=== PATIENT | female | born 1980 | race Two or more races ===

== ENCOUNTER 2021-01-05 12:06 | Outpatient (REF) | payer OTHER, SELFPAY ==
[2021-01-05 13:22] LABS: MANUAL DIFF FLAG NO
[2021-01-05 13:34] LABS: Basophils Absolute Auto 0.1 X10*3/uL (0.0-0.2); Basophils Percent Auto 0.8 % (0-2); Eosinophils Absolute Auto 0.2 X10*3/uL (0.0-0.4); Eosinophils Percent Auto 1.6 % (0-4); Hematocrit 36.9 % (37-47); Hemoglobin 11.3 g/dl (12.0-16.0); Imm Gran Abs Auto 0.06 X10*3/uL (0.00-0.03); Imm Gran Pct Auto 0.5 % (0.0-0.4); Lymphocytes Absolute Auto 3.3 X10*3/uL (1.2-4.9); Lymphocytes Percent Auto 29.2 % (20-40); Mean Corpuscular HGB Conc 30.6 g/dl (31.0-35.0); Mean Corpuscular Volume 75.2 fL (80-98); Mean Platelet Volume 10.6 fL (9.4-12.3); Monocytes Absolute Auto 0.7 X10*3/uL (0.1-1.2); Monocytes Percent Auto 5.8 % (2-11); Neutrophils Absolute Auto 7.1 X10*3/uL (2.0-8.3); Neutrophils Percent Auto 62.1 % (45-73); Platelet Count 334 X10*3/uL (160-400); Red Blood Count 4.91 X10*6/uL (4.20-5.50); Red Cell Distribution Width 17.7 % (11.0-16.0); White Blood Count 11.4 X10*3/uL (4.8-10.8)
[2021-01-05 13:47] LABS: Alanine Aminotransferase 17 U/L (0-31); Albumin Level 4.1 g/dL (3.5-5.0); Alkaline Phosphatase 71 U/L (39-117); Anion Gap 12 (12-20); Aspartate Amino Transferase 12 U/L (5-31); Bilirubin Total 0.4 mg/dL (0.0-1.0); Blood Urea Nitrogen 10 mg/dL (9-16); Calcium 9.3 mg/dL (8.4-10.2); Carbon Dioxide 28 mmol/L (22-29); Chloride 101 mmol/L (96-108); Cholesterol 130 mg/dL; Estimated Glomerular Filt Rate > 60; Glucose Fasting 203 mg/dL (60-99); HDL Cholesterol 30 mg/dL; LDL Cholesterol Calculated 76 mg/dl; Potassium 4.4 mmol/L (3.3-5.1); Sodium 137 mmol/L (135-145); Total Protein 7.2 g/dL (6.5-8.0); Triglycerides 122 mg/dL
[2021-01-05 13:49] LABS: Creatinine Urine 126.59 mg/dL; Microalbum/Creatinine Ratio Ur 44.2 ug/mg cr
[2021-01-05 14:07] LABS: TSH reflex Free T4 0.64 uIU/mL (0.32-4.0)
== END 2021-01-05 12:07 | disposition home or self-care (01) ==
LOC: HO.LAB 12:06
PROVIDERS: PCP Physician Assistant; Visit Provider Physician Assistant
DX: E66.01 Morbid (severe) obesity due to excess calories (principal); Z68.43 Body mass index [BMI] 50.0-59.9, adult; E11.9 Type 2 diabetes mellitus without complications; E78.2 Mixed hyperlipidemia; I10 Essential (primary) hypertension; Z79.4 Long term (current) use of insulin
CPT/HCPCS: 36415; 80053; 80061; 82043; 84443; 85025

== ENCOUNTER → 2021-07-07 12:30 | Outpatient (BNVA) | payer OTHER, SELFPAY | PROVIDERS: PCP Physician Assistant; Visit Provider Dietitian, Registered | DX: E11.65 Type 2 diabetes mellitus with hyperglycemia (principal) | CPT/HCPCS: 97802 ==

== ENCOUNTER → 2021-08-18 12:27 | Outpatient (BNVA) | payer OTHER, SELFPAY | PROVIDERS: PCP Physician Assistant; Visit Provider Dietitian, Registered | DX: E11.65 Type 2 diabetes mellitus with hyperglycemia (principal); Z71.3 Dietary counseling and surveillance | CPT/HCPCS: 97803 ==

== ENCOUNTER 2021-09-23 09:16 | Outpatient (REF) | payer OTHER, SELFPAY ==
[2021-09-23 10:08] LABS: Hemoglobin 10.5 g/dl (12.0-16.0); Mean Corpuscular HGB Conc 30.9 g/dl (31.0-35.0); Mean Corpuscular Hemoglobin 22.4 pg (27.0-33.0); Mean Corpuscular Volume 72.5 fL (80.0-98.0); Mean Platelet Volume 10.7 fL (9.4-12.3); Platelet Count 340 X10*3/uL (160-400); Red Blood Count 4.69 X10*6/uL (4.20-5.50); Red Cell Distribution Width 20.5 % (11.0-16.0); White Blood Count 11.5 X10*3/uL (4.8-10.8)
[2021-09-23 10:36] LABS: Alanine Aminotransferase 13 U/L (0-31); Albumin Level 3.9 g/dL (3.5-5.0); Alkaline Phosphatase 72 U/L (39-117); Anion Gap 12 (12-20); Aspartate Amino Transferase 11 U/L (5-31); Bilirubin Direct 0.2 mg/dL (0.0-0.5); Bilirubin Total 0.5 mg/dL (0.0-1.0); Blood Urea Nitrogen 9 mg/dL (9-16); Calcium 9.3 mg/dL (8.4-10.2); Carbon Dioxide 28 mmol/L (22-29); Chloride 105 mmol/L (96-108); Cholesterol 105 mg/dL; Estimated Glomerular Filt Rate > 60; Glucose Fasting 152 mg/dL (60-99); HDL Cholesterol 27 mg/dL; LDL Cholesterol Calculated 62 mg/dl; Lipase 41 U/L (8-78); Potassium 4.3 mmol/L (3.3-5.1); Sodium 141 mmol/L (135-145); Total Protein 6.8 g/dL (6.5-8.0); Triglycerides 83 mg/dL
[2021-09-23 11:38] LABS: Estimated Average Glucose 209 mg/dL; Hemoglobin A1c % 8.9 %
== END 2021-09-23 09:17 | disposition home or self-care (01) ==
LOC: HO.LAB 09:16
PROVIDERS: PCP Physician Assistant; Visit Provider Physician Assistant
DX: R10.13 Epigastric pain (principal); E78.2 Mixed hyperlipidemia; K58.9 Irritable bowel syndrome, unspecified; E11.9 Type 2 diabetes mellitus without complications; Z79.4 Long term (current) use of insulin
CPT/HCPCS: 36415; 80053; 80061; 80076; 81382; 82248; 83036; 83690; 84443; 85027

== ENCOUNTER → 2021-10-19 12:31 | Outpatient (BNVA) | payer OTHER, SELFPAY | PROVIDERS: PCP Physician Assistant; Visit Provider Dietitian, Registered | DX: E11.65 Type 2 diabetes mellitus with hyperglycemia (principal); Z71.3 Dietary counseling and surveillance | CPT/HCPCS: 97803 ==

== ENCOUNTER 2022-01-27 08:45 | Outpatient (REF) | payer OTHER, SELFPAY ==
[2022-01-27 09:22] LABS: Hematocrit 34.9 % (37.0-47.0); Hemoglobin 10.8 g/dl (12.0-16.0); Mean Corpuscular HGB Conc 30.9 g/dl (31.0-35.0); Mean Corpuscular Hemoglobin 22.7 pg (27.0-33.0); Mean Corpuscular Volume 73.3 fL (80.0-98.0); Mean Platelet Volume 10.2 fL (9.4-12.3); Platelet Count 371 X10*3/uL (160-400); Red Blood Count 4.76 X10*6/uL (4.20-5.50); Red Cell Distribution Width 19.1 % (11.0-16.0); White Blood Count 10.5 X10*3/uL (4.8-10.8)
[2022-01-27 09:47] LABS: Iron 25 mcg/dL (30-160); Percent Iron Saturation 6 % (15-50); Total Iron Binding Capacity 438 mcg/dL (228-428); Unsaturated Iron Binding 413 ug/dL
== END 2022-01-27 08:46 | disposition home or self-care (01) ==
LOC: HO.LAB 08:45
PROVIDERS: PCP Physician Assistant; Visit Provider Physician Assistant
DX: D50.9 Iron deficiency anemia, unspecified (principal)
CPT/HCPCS: 36415; 83540; 85027

== ENCOUNTER 2022-04-14 13:44 | Outpatient (REF) | payer OTHER, SELFPAY ==
--- NOTE | ~2022-04-14 | MM_ITS ---
EXAMINATION: MM SCREENING DIGITAL BREAST TOMOSYNTHESIS, BILATERAL CLINICAL INFORMATION: Screening. Asymptomatic. No prior breast imaging. Age 42. The lifetime risk of breast cancer based on the Tyrer-Cuzick Model is 10%. COMPARISON: Mammography: 11 TECHNIQUE: Digital breast tomosynthesis is performed in both the craniocaudal and mediolateral oblique views along with computer-aided detection (CAD). Synthesized 2D images are generated from the tomosynthesis. FINDINGS: There are scattered areas of fibroglandular density (ACR BI-RADS breast composition Category b). There is no significant mass or architectural abnormality. The left breast has loosely grouped calcifications anterior lower inner quadrant. As this represents initial baseline study, additional magnification views will be requested to fully characterize. There are other few incidental scattered calcifications in the breasts which are unremarkable. The skin contours are smooth. The axilla are unremarkable. MM/MM tomosynthesis screening BI IMPRESSION: Left: -Loosely grouped calcifications anterior medial breast on baseline exam. Right: -No mammographic evidence of malignancy. ASSESSMENT: BI-RADS 0: Incomplete - Need Additional Imaging Evaluation RECOMMENDATION: 1. Additional views of the left breast (magnification CC, magnification LM). 2. Radiology department staff will contact the patient for additional imaging. This patient's information was entered into a reminder system with a target due date for their next mammogram.
== END 2022-04-14 13:45 | disposition home or self-care (01) ==
LOC: HO.MAMMO 13:44
PROVIDERS: PCP Physician Assistant; Visit Provider Physician Assistant
DX: Z12.31 Encounter for screening mammogram for malignant neoplasm of breast (principal)
CPT/HCPCS: 77063; 77067

== ENCOUNTER 2022-05-11 10:52 | Outpatient (REF) | payer OTHER, SELFPAY ==
--- NOTE | ~2022-05-11 | MM_ITS ---
EXAMINATION: MM DIAGNOSTIC DIGITAL MAMMOGRAPHY, LEFT CLINICAL INFORMATION: Recall from baseline screening for loosely grouped calcifications anterior lower inner left breast. COMPARISON: Mammography: 04/14/2022 TECHNIQUE: Digital mammography is performed in the following views: Magnification CC, magnification LM. FINDINGS: There are scattered areas of fibroglandular density (ACR BI-RADS breast composition Category b). The additional views confirm numerous loosely grouped calcifications in the anterior 9:00 position. The calcifications vary in size and in attenuation. Stereotactic sampling is recommended. Results and recommendation are discussed with the patient at time of visit. MM/MM added views LT IMPRESSION: -Multiple loosely grouped heterogeneous calcifications anterior 9:00 left breast. ASSESSMENT: BI-RADS 4: Suspicious RECOMMENDATION: Stereotactic sampling left breast calcifications. This patient's information was entered into a reminder system with a target due date for their next mammogram.
== END 2022-05-11 10:53 | disposition home or self-care (01) ==
LOC: HO.MAMMO 10:52
PROVIDERS: PCP Physician Assistant; Visit Provider Physician Assistant
DX: R92.1 Mammographic calcification found on diagnostic imaging of breast (principal)
CPT/HCPCS: 77065

== ENCOUNTER → 2022-05-12 08:24 | Outpatient (BNVA) | payer OTHER, SELFPAY | PROVIDERS: PCP Physician Assistant; Visit Provider Surgery | DX: R92.1 Mammographic calcification found on diagnostic imaging of breast (principal) | CPT/HCPCS: 99202 ==

== ENCOUNTER 2022-05-13 07:51 | Outpatient (REF) | payer OTHER, SELFPAY ==
--- NOTE | ~2022-05-13 | MM_ITS ---
EXAMINATION: STEREOTACTIC TOMOSYNTHESIS-GUIDED VACUUM-ASSISTED BREAST BIOPSY, LEFT SPECIMEN RADIOGRAPH, LEFT POST PROCEDURE DIGITAL MAMMOGRAM, LEFT CLINICAL INFORMATION: Loosely grouped heterogeneous calcifications anterior left breast initially noted at baseline. TC score 10%. COMPARISON: Mammography 04/14/2022, 05/11/2022. TECHNIQUE/PROCEDURE: Informed consent was obtained from the patient after discussion of the benefits, risks, and alternatives to biopsy today. Patient appeared to understand. Gave opportunity for questions. Patient signed consent form. BIOPSY TABLE: [employer] Affirm Prone Biopsy System. LESION: Loosely grouped heterogeneous calcifications anterior medial left breast.. LOCAL ANESTHESIA: 10 mL carbonated 1% lidocaine; 10 mL 1% lidocaine with epinephrine. DERMATOTOMY: Single skin edwin dermatotomy performed. NEEDLE: [employer] 9-gauge vacuum assisted core biopsy device. APPROACH: Medial lateral. TARGETING: Combination of digital breast tomosynthesis and stereotactic digital mammography used for targeting. CORES: 8. CLIP: [employer] T-shaped marker. SPECIMEN RADIOGRAPH: Specimen radiograph is taken in separate room using digital mammography. The index calcifications are in the excised cores. There are over 12 calcifications in the cores. POST PROCEDURE UNILATERAL DIGITAL MAMMOGRAM: The post biopsy mammogram is performed in separate room using separate digital mammography equipment from the biopsy procedure. CC and LM views are obtained. There are scattered areas of fibroglandular density (breast composition category: b). The clip marker is in position. The calcifications are markedly decreased at the biopsy site. No gross hematoma. The patient tolerated the procedure well. No immediate complications. Home instructions reviewed with the patient. Final pathology results are pending. MM/MM stereotactic biopsy LT IMPRESSION: 1. Digital tomosynthesis-guided core biopsy left breast with clip placement. 2. Specimen radiograph taken and post procedure mammogram. There is satisfactory positioning of the biopsy clip. 3. Final pathology results pending. An addendum report will be issued.
[2022-05-13] MEDS: Lidocaine HCl 1 % 20 ML VIAL 10 ML SUBCUT (09:32)
[2022-05-13] MEDS: Sodium Bicarbonate 8.4% 50 MEQ/50 ML VIAL SUBCUT (09:33)
== END 2022-05-13 07:52 | disposition home or self-care (01) ==
LOC: HO.MAMMO 07:51
PROVIDERS: PCP Physician Assistant; Visit Provider Surgery
DX: R92.1 Mammographic calcification found on diagnostic imaging of breast (principal)
CPT/HCPCS: 19081; 88305; A4648

== ENCOUNTER → 2022-05-18 14:30 | Outpatient (BNVA) | payer OTHER, SELFPAY | PROVIDERS: PCP Physician Assistant; Visit Provider Surgery | DX: R92.1 Mammographic calcification found on diagnostic imaging of breast (principal) | CPT/HCPCS: 99212 ==

== ENCOUNTER → 2023-02-13 14:54 | Outpatient (BNVA) | payer OTHER, SELFPAY | PROVIDERS: PCP Physician Assistant; Visit Provider Nurse Practitioner Family | DX: R10.9 Unspecified abdominal pain (principal); R14.0 Abdominal distension (gaseous); G89.29 Other chronic pain; E11.40 Type 2 diabetes mellitus with diabetic neuropathy, unspecified; Z79.4 Long term (current) use of insulin | CPT/HCPCS: 99202 ==

== ENCOUNTER 2023-02-19 11:12 | Emergency (ER) | payer OTHER, SELFPAY ==
--- NOTE | ~2023-02-19 | XR_ITS ---
EXAMINATION: XR CHEST CLINICAL INFORMATION: Reason for Exam cp, sob COMPARISON: Chest radiograph 08/27/2018 TECHNIQUE: One view of the chest FINDINGS: Lines and tubes: EKG leads overlie the patient. Clear lungs. No pleural effusion. No pneumothorax. Unchanged cardiomediastinal silhouette. XR/XR chest 1V IMPRESSION: * Clear lungs.
--- NOTE | 2023-02-19 11:14 | ECG_ITS ---
Test Reason : CHEST PAIN Blood Pressure : / mmHG Vent. Rate : 111 BPM Atrial Rate : 111 BPM P-R Int : 140 ms QRS Dur : 100 ms QT Int : 350 ms P-R-T Axes : 038 -24 021 degrees QTc Int : 476 ms Sinus tachycardia Minimal voltage criteria for LVH, may be normal variant ( Rolan product ) Borderline ECG No previous ECGs available Referred By: Elvia Tristan Electronically Signed By:DESI ESPOSITO
--- NOTE | 2023-02-19 11:17 | ED_ITS ---
HPI - General Adult General Chief complaint: Abdominal Pain Stated complaint: abd pain, chest pain, SOB Time Seen by Provider: 02/19/23 11:30 Source: patient Mode of arrival: ambulatory Limitations: no limitations History of Present Illness HPI narrative: Patient is a 42-year-old female with history of obesity, GERD, IBS, DM, HTN, HLD, cholecystectomy, and chronic abdominal pain presenting to the emergency department with diffuse abdominal pain, nausea, and vomiting. She has had extensive workup for same symptoms including CT abdomen, barium swallow, colonoscopy, EGD, nuclear testing, and labs without an explanation for her symptoms. States current symptoms feel the same as her chronic pain. She recently saw pain management on 02/13/23 and was instructed to contact GI for additional evaluation. States she played phone tag with GI and does not have an appointment set up yet. She denies any drug or alcohol use. Reports only prior abdominal surgery was cholecystectomy. Pain management also recommended allergy testing to rule out dietary cause for symptoms. Denies diarrhea or constipation, last BM 3 days ago. States has been unable to tolerate PO since Monday. Denies dysuria, hematuria, or other urinary symptoms. Denies fevers. Denies chest pain or dyspnea. Denies radiation of abdominal pain. MD complaint: abdominal pain, nausea, vomiting Onset (ago): day(s) Location: abdomen Radiation: non-radiation Severity: severe Quality: burning Pain Consistency: constant Relieving factors: none Exacerbating factors: eating Associated symptoms: nausea/vomiting Treatments prior to arrival: none Related Data Home Medications Medication Instructions Recorded Confirmed magnesium oxide 400 mg (241.3 mg 400 mg PO DAILY 05/12/22 01/12/23 magnesium) tablet Previous Rx's Medication Instructions Recorded blood pressure monitor (Blood #1 ea 08/04/20 Pressure Kit) safety needles 25 gauge x 1 (BD #100 ea 06/22/21 Eclipse) insulin lispro 100 unit/mL 16 unit (0.16 mL) subcut TID 30 03/29/22 subcutaneous pen (Humalog #15 mL (U-100) Insulin) Lactobacil rhamnosus GG 10 billion 1 cap PO DAILY 90 days #90 caps 04/25/22 cell-inulin 200 mg sprinkle capsule ([facility]) lancets 28 gauge (FreeStyle #100 ea 07/05/22 Lancets) pen needle, diabetic 32 gauge x #100 ea 07/05/2232 (BD Lis 2nd Gen Pen Needle) atorvastatin 40 mg tablet 40 mg PO DAILY 90 days #90 tabs 09/16/22 losartan 50 mg tablet 50 mg PO DAILY 90 days #90 tabs 09/16/22 omeprazole 40 mg capsule,delayed 40 mg PO DAILY 90 days #90 caps 09/16/22 release insulin glargine 100 unit/mL (3 30 unit (0.3 mL) subcut DAILY 30 12/24/22 mL) subcutaneous pen (Lantus days #15 mL Solostar U-100 Insulin) dicyclomine 20 mg tablet 20 mg PO TID 30 days #90 tabs 01/11/23 ferrous sulfate 325 mg (65 mg 325 mg PO DAILY 30 days #30 tabs 01/17/23 iron) tablet alcohol swabs (Alcohol Prep Pads) 1 pad topical TID 90 days #200 ea 02/07/23 blood sugar diagnostic (FreeStyle #100 strips 02/13/23 Lite Strips) tramadol 50 mg tablet 50 mg PO Q8H PRN pain 7 days #21 02/13/23 tabs promethazine 25 mg rectal 25 mg MD Q6H PRN nausea and 02/19/23 suppository vomiting #12 ea Allergies Allergy/AdvReac Type Severity Reaction Status Date / Time ibuprofen [IBUPROFEN] Allergy Unknown SWELLING, Verified 02/19/23 11:39 face swelling seafood Allergy Unknown Anaphylaxis Verified 02/19/23 11:39 dulaglutide [From Trulicity] AdvReac Intermediate GI upset Verified 02/19/23 11:39 Review of Systems Review of Systems: As per HPI. Yes all other systems are reviewed and are negative Constitutional: Constitutional: Reports as per HPI [facility] Past Medical History Medical History Breast calcification, left Diabetes mellitus Hyperlipidemia Hypertension Morbid obesity Surgical History History of cholecystectomy Family History Family History Father Mental health disorder Mother Drug abuse Emphysema lung COPD (chronic obstructive pulmonary disease) Heart disease Mental health disorder Substance use disorder Sister Thyroid cancer Social History Social History Housing: Apartment Alcohol intake: never Patient Tobacco Use Status: Never used Tobacco Smoked in Last 30 Days: No e-Cigarette/Vaping Use: Never Used Second Hand Smoke Exposure: No Use of substances other than those prescribed or required for medical reasons: No Advance Directives: No Advance Directives Information Provided: Yes service: No Current occupational status: employed Current occupation: [employer]OLOG[employer] Current occupational exposures/hazards: No Cognitive needs: No Hearing needs: No Vision needs: Yes Physical Exam ED Vital Signs: Vital Signs - 24 hr 02/19/23 11:30 02/19/23 11:40 02/19/23 14:00 Temperature 98.4 F 98.7 F 100.3 F Pulse Rate 109 H 71 Respiratory Rate 24 H 24 H 37 H Blood Pressure 158/105 H 158/105 H 170/84 H Pulse Oximetry 98 97 97 Oxygen Delivery Method Room Air Room Air Nasal Cannula Oxygen Flow Rate 2 02/19/23 14:49 02/19/23 15:23 Temperature 99.6 F 99.3 F Pulse Rate 94 Respiratory Rate 37 H Blood Pressure 199/107 H Pulse Oximetry 98 Oxygen Delivery Method Room Air Oxygen Flow Rate BMI result Body Mass Index 47.6 Vital signs have been reviewed and appear to be correct. Blood pressure elevated. Heart rate slightly elevated. Respiratory rate slightly elevated. Temperature normal. Oxygen saturation normal. Const General: cooperative, healthy appearing and no acute distress Nutritional Appearance: obese Orientation/consciousness: oriented to person, oriented to place, oriented to time and patient oriented x3 Limitations: no limitations HENMT Head: Yes normocephalic and Yes atraumatic Ears: external ears normal General nose exam: Normal external nose present Face and sinus: Yes face symmetric Mouth: oropharynx normal and moist mucous membranes Throat: Yes uvula midline Eyes Pupils: Equal, round and reactive pupils present Neck Neck: Yes normal visual inspection and Yes supple Resp Effort & Inspection: normal respiratory effort and able to speak in complete sentences Auscultation: clear to auscultation bilaterally Cardio Rate: regular rate Rhythm: regular rhythm Heart sounds: S1 normal heart sound present and S2 normal heart sound present GI Inspection: Yes normal to inspection Palpation (GI): Soft to palpation and nontender Auscultation: normoactive bowel sounds General: Yes no CVA tenderness Back/Spine/Pelvis Back: no CVA tenderness Skin General skin exam: elasticity normal and turgor normal Neuro General: oriented to person, oriented to place, oriented to time, patient oriented x3, moves all extremities, no focal motor deficits and CN's II-XI in tact bilaterally Cranial nerves: Yes Equal, round and reactive pupils present Cognition (Neuro): normal cognition Extrem General: Yes full ROM, Yes no pedal edema and Yes no calf tenderness Psych Mental Status: mental status grossly normal Affect: normal affect Thought process: Normal thought process present Course Course Course Narrative: 13:55 Notified by nursing that patient's room air oxygen saturation dropped to 90%, stating patient was hyperventilating related to pain. She is not currently tachycardic. Still do not suspect sepsis. Patient re-evaluated, placed on O2 @ 2lpm via NC for O2 sats of 89-90% on room air, likely secondary to drowsiness reports decreased nausea but continues to complain of epigastric pain. Troponin negative. Will avoid opioid analgesia as patient already drowsy and having difficulty maintaining oxygenation. Ordered famotidine and maalox/lidocaine. 15:22 Patient reports pain is down to 6/10. Noted to be hypertensive. States did not take her Losartan this am r/t vomiting. Will order her home dose now that nausea is controlled. Also ordered bentyl. Review of records from [facility] notes from ED visit yesterday shows leukocytosis on prior presentations, most recent abdominal CT there was 09/09/22. Patient does not have elevation of LFTs, alk phos, or lipase so biliary or pancreatic etiology unlikely. UA shows 1+ leukocytes, 21-50 WBCs, and 4+ bacteria but also has 11-20 epithelials, so likely contaminated. Discussed results of urine drug screen with patient who now admits that she occasionally uses cannabis, but denies daily use. 16:14 Patient tolerating PO. Requesting Ativan for abdominal pain stating this typically works well for her. Patient will be picked up from ED and is not driving, so will order PO Ativan. Feel patient is stable for discharge home, will prescribe rectal promethazine for patient to utilize when she has nausea and vomiting and is unable to tolerate PO. Stressed the importance of contacting GI for further evaluation and encourage patient to continue calling their office for an appointment. All results discussed and all questions answered, return precautions discussed at bedside. Patient verbalized understanding of and agreement with plan. Medications Administered Discontinued Medications Generic Name Dose Route Start Last Admin Trade Name Freq PRN Reason Stop Dose Admin Al Hydroxide/Mg Hydroxide 30 ml 02/19/23 13:54 02/19/23 14:40 Magnesium Hydrox/Alum Hydrox 30 Ml Oral.Susp PO 02/19/23 13:55 30 ml ONCE ONE Administration Dicyclomine HCl 10 mg 02/19/23 15:24 02/19/23 15:44 Dicyclomine Hcl 10 Mg Capsule PO 02/19/23 15:25 10 mg ONCE ONE Administration Diphenhydramine HCl 25 mg 02/19/23 12:49 02/19/23 13:16 Diphenhydramine Hcl 50 Mg/Ml Vial IVPUSH 02/19/23 12:50 25 mg ONCE ONE Administration Famotidine 20 mg 02/19/23 13:54 02/19/23 14:55 Famotidine/Pf 20 Mg/2 Ml Vial IVPUSH 02/19/23 13:55 20 mg ONCE ONE Administration Haloperidol Lactate 5 mg 02/19/23 12:10 02/19/23 13:21 Haloperidol Lactate 5 Mg/Ml Vial IM 02/19/23 12:11 5 mg ONCE ONE Administration Sodium Chloride 1,000 mls @ 999 mls/hr 02/19/23 12:15 02/19/23 15:28 Ns IV 02/19/23 13:15 Infused .Q1H1M RODNEY Infusion Lidocaine HCl 5 ml 02/19/23 13:54 02/19/23 14:40 Lidocaine Hcl Viscous 2 % 15 Ml Solution MUCOUS MEM 02/19/23 13:55 5 ml ONCE ONE Administration Losartan Potassium 50 mg 02/19/23 15:22 02/19/23 15:44 Losartan Potassium 50 Mg Tablet PO 02/19/23 15:23 50 mg ONCE ONE Administration Protocol Metoclopramide HCl 10 mg 02/19/23 12:49 02/19/23 13:16 Metoclopramide Hcl 10 Mg/2 Ml Vial IVPUSH 02/19/23 12:50 10 mg ONCE ONE Administration Potassium Chloride 20 meq 02/19/23 15:34 02/19/23 15:45 Potassium Chloride Er 20 Meq Tab.Er.Prt PO 02/19/23 15:35 20 meq ONCE ONE Administration Medical Decision Making Medical Decision Making MDM Narrative: Patient is a 42-year-old female with history of obesity, GERD, IBS, DM, HTN, HLD, cholecystectomy, and chronic abdominal pain presenting to the emergency department with diffuse abdominal pain, nausea, and vomiting. On exam patient is awake, A+Ox3, BP elevated, mildly tachycardic likely secondary to pain, afebrile, LS CTA, abdomen is soft and nontender to palpation, no CVA tenderness. EKG shows sinus tachycardia, no evidence of STEMI. Differential includes ACS, GERD, PUD, exacerbation of chronic abdominal pain, cyclic vomiting syndrome. Less likely pancreatitis, choledocolithiasis. Unlikely pneumonia. Do not suspect sepsis. Patient typically goes to [facility] ED, will attempt to obtain recent records from there. Plan: labs, UA, pain/nausea management, IV fluids, reassess Please refer to course for remaining clinical decision making. Differential Diagnosis Differential Diagnoses: The differential diagnosis associated with the presentation includes As above. Lab Data MDM Lab Attestation statement: I reviewed the patient's lab results. 02/19/23 12:40 02/19/23 12:40 Labs: Lab Results 02/19/23 02/19/23 02/19/23 Range/Units 12:40 12:40 12:40 WBC 15.6 H (4.8-10.8) X10*3/uL RBC 5.38 (4.20-5.50) X10*6/uL Hgb 13.7 D (12.0-16.0) g/dl Hct 40.9 (37.0-47.0) % MCV 76.0 L (80.0-98.0) fL MCH 25.5 L (27.0-33.0) pg MCHC 33.5 (31.0-35.0) g/dl RDW 17.2 H (11.0-16.0) % Plt Count 352 (160-400) X10*3/uL MPV 10.4 (9.4-12.3) fL Immature Gran % (Auto) 0.7 H (0.0-0.4) % Neut % (Auto) 71.7 (45-73) % Lymph % (Auto) 18.4 L (20-40) % [place] % (Auto) 8.6 (2-11) % Eos % (Auto) 0.1 (0-4) % Baso % (Auto) 0.5 (0-2) % Lymph # (Auto) 2.9 (1.2-4.9) X10*3/uL Child[place] # (Auto) 1.3 H (0.1-1.2) X10*3/uL Eos # (Auto) 0.0 (0.0-0.4) X10*3/uL Baso # (Auto) 0.1 (0.0-0.2) X10*3/uL Abs Immat Gran (auto) 0.11 H (0.00-0.03) X10*3/uL Absolute Neuts (auto) 11.2 H (2.0-8.3) x10*3/uL Absolute Nucleated RBC 0.000 (0.0-0.012) X10*3/uL Nucleated RBC % (auto) 0.0 (0.0-0.2) /100WBC Sodium 140 (135-145) mmol/L Potassium 3.2 L D (3.3-5.1) mmol/L Chloride 104 (96-108) mmol/L Carbon Dioxide 19 L (22-29) mmol/L Anion Gap 20 (12-20) BUN 16 (9-16) mg/dL Creatinine 0.87 (0.5-1.4) mg/dL Estim Creat Clear Calc 100.9 Estimated GFR > 60 Random Glucose 166 H (60-115) mg/dL Calcium 10.6 H D (8.4-10.2) mg/dL Magnesium 2.0 (1.6-2.6) mg/dL Total Bilirubin 1.3 H (0.0-1.0) mg/dL AST 18 (5-31) U/L ALT 23 (0-31) U/L Alkaline Phosphatase 73 (39-117) U/L Troponin I High Sens < 2.7 (<3.5-17.0) ng/L Total Protein 8.5 H (6.5-8.0) g/dL Albumin 4.8 (3.5-5.0) g/dL Lipase (8-78) U/L Urine Color Urine Appearance Urine pH (5.0-9.0) Ur Specific [place] (1.005-1.025) Urine Protein (Neg-Trace) mg/dL Urine Glucose (UA) (Negative) mg/dL Urine Ketones (Negative) mg/dL Urine Blood (Negative) Urine Nitrite (Negative) Ur Leukocyte Esterase (Negative) Urine RBC (0-2) /HPF Urine WBC (0-5) /HPF Ur Squamous Epith Cells (0-2) /HPF Calcium Oxalate Crystal Urine Bacteria (None Seen) Hyaline Casts (0-2) /LPF Urine Opiates Screen (Not Detect) Urine Fentanyl Screen (Not Detect) Ur Barbiturates Screen (Not Detect) Ur Phencyclidine Scrn (Not Detect) Ur Amphetamines Screen (Not Detect) U Benzodiazepines Scrn (Not Detect) Urine Cocaine Screen (Not Detect) U Marijuana (THC) Screen (Not Detect) COVID-19 (TRENA) (Negative) COVID-19 Clin Com 02/19/23 02/19/23 02/19/23 Range/Units 12:40 12:40 13:12 WBC (4.8-10.8) X10*3/uL RBC (4.20-5.50) X10*6/uL Hgb (12.0-16.0) g/dl Hct (37.0-47.0) % MCV (80.0-98.0) fL MCH (27.0-33.0) pg MCHC (31.0-35.0) g/dl RDW (11.0-16.0) % Plt Count (160-400) X10*3/uL MPV (9.4-12.3) fL Immature Gran % (Auto) (0.0-0.4) % Neut % (Auto) (45-73) % Lymph % (Auto) (20-40) % Childress % (Auto) (2-11) % Eos % (Auto) (0-4) % Baso % (Auto) (0-2) % Lymph # (Auto) (1.2-4.9) X10*3/uL [place] # (Auto) (0.1-1.2) X10*3/uL Eos # (Auto) (0.0-0.4) X10*3/uL Baso # (Auto) (0.0-0.2) X10*3/uL Abs Immat Gran (auto) (0.00-0.03) X10*3/uL Absolute Neuts (auto) (2.0-8.3) x10*3/uL Absolute Nucleated RBC (0.0-0.012) X10*3/uL Nucleated RBC % (auto) (0.0-0.2) /100WBC Sodium (135-145) mmol/L Potassium (3.3-5.1) mmol/L Chloride (96-108) mmol/L Carbon Dioxide (22-29) mmol/L Anion Gap (12-20) BUN (9-16) mg/dL Creatinine (0.5-1.4) mg/dL Estim Creat Clear Calc Estimated GFR Random Glucose (60-115) mg/dL Calcium (8.4-10.2) mg/dL Magnesium (1.6-2.6) mg/dL Total Bilirubin (0.0-1.0) mg/dL AST (5-31) U/L ALT (0-31) U/L Alkaline Phosphatase (39-117) U/L Troponin I High Sens (<3.5-17.0) ng/L Total Protein (6.5-8.0) g/dL Albumin (3.5-5.0) g/dL Lipase 20 (8-78) U/L Urine Color Dark Yellow Urine Appearance Cloudy Urine pH 6.0 (5.0-9.0) Ur Specific [place] >= 1.030 H (1.005-1.025) Urine Protein 300 (3+) H (Neg-Trace) mg/dL Urine Glucose (UA) Negative (Negative) mg/dL Urine Ketones 80 (Negative) mg/dL Urine Blood Negative (Negative) Urine Nitrite Negative (Negative) Ur Leukocyte Esterase Small (1+) H (Negative) Urine RBC 0-2 (0-2) /HPF Urine WBC 21-50 H (0-5) /HPF Ur Squamous Epith Cells 11-20 (0-2) /HPF Calcium Oxalate Crystal Present Urine Bacteria 4+ (None Seen) Hyaline Casts 3-5 (0-2) /LPF Urine Opiates Screen (Not Detect) Urine Fentanyl Screen (Not Detect) Ur Barbiturates Screen (Not Detect) Ur Phencyclidine Scrn (Not Detect) Ur Amphetamines Screen (Not Detect) U Benzodiazepines Scrn (Not Detect) Urine Cocaine Screen (Not Detect) U Marijuana (THC) Screen (Not Detect) COVID-19 (TRENA) Negative (Negative) COVID-19 Clin Com See Note 02/19/23 Range/Units 13:12 WBC (4.8-10.8) X10*3/uL RBC (4.20-5.50) X10*6/uL Hgb (12.0-16.0) g/dl Hct (37.0-47.0) % MCV (80.0-98.0) fL MCH (27.0-33.0) pg MCHC (31.0-35.0) g/dl RDW (11.0-16.0) % Plt Count (160-400) X10*3/uL MPV (9.4-12.3) fL Immature Gran % (Auto) (0.0-0.4) % Neut % (Auto) (45-73) % Lymph % (Auto) (20-40) % Childress % (Auto) (2-11) % Eos % (Auto) (0-4) % Baso % (Auto) (0-2) % Lymph # (Auto) (1.2-4.9) X10*3/uL [place] # (Auto) (0.1-1.2) X10*3/uL Eos # (Auto) (0.0-0.4) X10*3/uL Baso # (Auto) (0.0-0.2) X10*3/uL Abs Immat Gran (auto) (0.00-0.03) X10*3/uL Absolute Neuts (auto) (2.0-8.3) x10*3/uL Absolute Nucleated RBC (0.0-0.012) X10*3/uL Nucleated RBC % (auto) (0.0-0.2) /100WBC Sodium (135-145) mmol/L Potassium (3.3-5.1) mmol/L Chloride (96-108) mmol/L Carbon Dioxide (22-29) mmol/L Anion Gap (12-20) BUN (9-16) mg/dL Creatinine (0.5-1.4) mg/dL Estim Creat Clear Calc Estimated GFR Random Glucose (60-115) mg/dL Calcium (8.4-10.2) mg/dL Magnesium (1.6-2.6) mg/dL Total Bilirubin (0.0-1.0) mg/dL AST (5-31) U/L ALT (0-31) U/L Alkaline Phosphatase (39-117) U/L Troponin I High Sens (<3.5-17.0) ng/L Total Protein (6.5-8.0) g/dL Albumin (3.5-5.0) g/dL Lipase (8-78) U/L Urine Color Urine Appearance Urine pH (5.0-9.0) Ur Specific [place] (1.005-1.025) Urine Protein (Neg-Trace) mg/dL Urine Glucose (UA) (Negative) mg/dL Urine Ketones (Negative) mg/dL Urine Blood (Negative) Urine Nitrite (Negative) Ur Leukocyte Esterase (Negative) Urine RBC (0-2) /HPF Urine WBC (0-5) /HPF Ur Squamous Epith Cells (0-2) /HPF Calcium Oxalate Crystal Urine Bacteria (None Seen) Hyaline Casts (0-2) /LPF Urine Opiates Screen POSITIVE H (Not Detect) Urine Fentanyl Screen Not Detected (Not Detect) Ur Barbiturates Screen Not Detected (Not Detect) Ur Phencyclidine Scrn Not Detected (Not Detect) Ur Amphetamines Screen Not Detected (Not Detect) U Benzodiazepines Scrn Not Detected (Not Detect) Urine Cocaine Screen Not Detected (Not Detect) U Marijuana (THC) Screen POSITIVE H (Not Detect) COVID-19 (TRENA) (Negative) COVID-19 Clin Com Independent Interpretation I performed an independent interpretation of an: EKG Interpretation: EKG: sinus tachycardia, rate 111 bpm, normal MD interval, no evidence of STEMI External Record Review External record reviewed: Inpatient record, Office record, Outpatient record and Outside ED record ([facility]) Tests considered The following testing was considered but not selected: Considered abdominal CT, however patient has had extensive GI workup, and does not have abdominal tenderness to palpation on exam Prescription Management I considered prescription management with: Pain Medication and Other (antiemetic) Chronic Conditions Patient?s care impacted by: Diabetes and Hypertension Discharge Plan Discharge Clinical Impression: Nausea & vomiting Patient Disposition: Still a Patient Instructions: Acute Nausea and Vomiting (ED) Additional Instructions: You have been evaluated in the emergency department today for abdominal pain, nausea, and vomiting. Your evaluation did not show evidence of medical conditions requiring emergent intervention at this time. You are being prescribed a medication called promethazine which you can use rectally when you are experiencing nausea and vomiting. Please schedule an appointment with your primary care physician and also continue to contact the paint stockman to set up an appointment for further evaluation. Return to the emergency department if you experience worsening or uncontrolled pain, fevers 100.4? F or greater, recurrent vomiting, inability to tolerate food or fluids by mouth, bloody stools or vomit, black or tarry stools, or any other concerning symptoms. Prescriptions: New promethazine 25 mg suppository 25 mg MD Q6H PRN (Reason: nausea and vomiting) Qty: 12 0RF No Action insulin lispro [Humalog KwikPen Insulin] 100 unit/mL insulin pen 16 unit subcut TID 30 Days Qty: 15 1RF Rx Instructions: per sliding scale ( 16 units max ) [facility] 10 billion cell -200 mg capsule, sprinkle 1 cap PO DAILY 90 Days Qty: 90 2RF (DME) lancets [FreeStyle Lancets] 28 gauge misc See Rx Instructions .ROUTE .MEDSUPPLY Qty: 100 3RF Rx Instructions: As directed (DME) pen needle, diabetic [BD Lis 2nd Gen Pen Needle] 32 gauge x 5/32 needle See Rx Instructions .ROUTE .MEDSUPPLY Qty: 100 3RF Rx Instructions: As directed omeprazole 40 mg capsule,delayed release(DR/EC) 40 mg PO DAILY 90 Days Qty: 90 1RF losartan 50 mg tablet 50 mg PO DAILY 90 Days Qty: 90 1RF atorvastatin 40 mg tablet 40 mg PO DAILY 90 Days Qty: 90 1RF insulin glargine [Lantus Solostar U-100 Insulin] 100 unit/mL (3 mL) insulin pen 30 unit subcut DAILY 30 Days Qty: 15 2RF ferrous sulfate 325 mg (65 mg iron) tablet 325 mg PO DAILY 30 Days Qty: 30 6RF alcohol swabs [Alcohol Prep Pads] Pads, Medicated 1 pad topical TID 90 Days Qty: 200 5RF tramadol 50 mg tablet 50 mg PO Q8H PRN (Reason: pain) 7 Days Qty: 21 0RF (DME) FreeStyle Lite Strips Strip See Rx Instructions .ROUTE .COMPLEX Qty: 100 3RF Dose Instruction: USE 1 STRIP DIRECTED 3 TIMES A DAY FOR 30 DAYS TESTING TWICE PER DAY Rx Instructions: USE 1 STRIP DIRECTED 3 TIMES A DAY FOR 30 DAYS TESTING TWICE PER DAY (DME) blood pressure monitor [Blood Pressure Kit] Kit See Rx Instructions .ROUTE .MEDSUPPLY Qty: 1 0RF Rx Instructions: As directed (DME) BD Eclipse 25 gauge x 1 needle See Rx Instructions .Route Qty: 100 3RF Rx Instructions: As directed dicyclomine 20 mg tablet 20 mg PO TID 30 Days Qty: 90 3RF magnesium oxide 400 mg (241.3 mg magnesium) tablet 400 mg PO DAILY Referrals: [facility] [place] [facility] [Provider Group]
[2023-02-19 11:30] VITALS: BP 158/105; RESP 24; TEMP 36.9; O2SAT 98
[2023-02-19 11:40] VITALS: BP 158/105; PULSE 109; RESP 24; TEMP 37.1; O2SAT 97; BMI 47.6
--- NOTE | 2023-02-19 11:52 | PC.NURSE ---
pt a&ox4, sinus tach - color television console monitor applied, hypertensive, increased resp effort, other vss, pt reporting generalized abd pain for 4 days, nausea/vomiting, last bm was 3 days ago, seen at [facility] for same. EKG completed, pt pending labs/ED provider.
[2023-02-19 12:45] LABS: MANUAL DIFF FLAG NO
[2023-02-19 12:47] LABS: Basophils Absolute Auto 0.1 X10*3/uL (0.0-0.2); Basophils Percent Auto 0.5 % (0-2); Eosinophils Percent Auto 0.1 % (0-4); Hematocrit 40.9 % (37.0-47.0); Hemoglobin 13.7 g/dl (12.0-16.0); Imm Gran Abs Auto 0.11 X10*3/uL (0.00-0.03); Imm Gran Pct Auto 0.7 % (0.0-0.4); Lymphocytes Absolute Auto 2.9 X10*3/uL (1.2-4.9); Lymphocytes Percent Auto 18.4 % (20-40); Mean Corpuscular HGB Conc 33.5 g/dl (31.0-35.0); Mean Corpuscular Hemoglobin 25.5 pg (27.0-33.0); Mean Platelet Volume 10.4 fL (9.4-12.3); Monocytes Absolute Auto 1.3 X10*3/uL (0.1-1.2); Monocytes Percent Auto 8.6 % (2-11); Neutrophils Absolute Auto 11.2 x10*3/uL (2.0-8.3); Neutrophils Percent Auto 71.7 % (45-73); Platelet Count 352 X10*3/uL (160-400); Red Blood Count 5.38 X10*6/uL (4.20-5.50); Red Cell Distribution Width 17.2 % (11.0-16.0); White Blood Count 15.6 X10*3/uL (4.8-10.8)
[2023-02-19 13:03] LABS: COVID-19 Test Negative (Negative); IDNOW Serial# 6674DD1D
[2023-02-19 13:04] LABS: Lipase 20 U/L (8-78)
[2023-02-19 13:06] LABS: Alanine Aminotransferase 23 U/L (0-31); Albumin Level 4.8 g/dL (3.5-5.0); Alkaline Phosphatase 73 U/L (39-117); Anion Gap 20 (12-20); Aspartate Amino Transferase 18 U/L (5-31); Bilirubin Total 1.3 mg/dL (0.0-1.0); Blood Urea Nitrogen 16 mg/dL (9-16); Calcium 10.6 mg/dL (8.4-10.2); Carbon Dioxide 19 mmol/L (22-29); Chloride 104 mmol/L (96-108); Creatinine Clr Calc Pharmacy 100.9; Estimated Glomerular Filt Rate > 60; Glucose Random 166 mg/dL (60-115); Potassium 3.2 mmol/L (3.3-5.1); Sodium 140 mmol/L (135-145); Total Protein 8.5 g/dL (6.5-8.0)
[2023-02-19] MEDS: diphenhydrAMINE HCL 50 MG/ML VIAL 25 MG IVPUSH (13:16)
[2023-02-19] MEDS: Metoclopramide HCl 10 MG/2 ML VIAL IVPUSH (13:16)
[2023-02-19] MEDS: 0.9 % Sodium Chloride 1,000 ML 999 ML IV (13:16)
[2023-02-19] MEDS: Haloperidol Lactate 5 MG/ML VIAL IM (13:21)
[2023-02-19 13:23] LABS: Troponin-I High Sensitivity < 2.7 ng/L (<3.5-17.0)
[2023-02-19 13:42] LABS: Appearance Urine Cloudy; Color Urine Dark Yellow; Glucose Urine UA Negative (Negative); Leukocyte Esterase Urine Small (1+) (Negative); Nitrite Urine Negative (Negative); Specific Gravity - Urine >= 1.030 (1.005-1.025); UMIC TRIGGER UACC YES; Urine Blood Negative (Negative); Urine Ketones 80 mg/dL (Negative); Urine Protein 300 (3+) mg/dL (Neg-Trace)
[2023-02-19 13:50] LABS: Amphetamine Screen Urine Not Detected (Not Detect); Barbiturates, Urine Not Detected (Not Detect); Benzodiazepines Screen Urine Not Detected (Not Detect); Cannabinoid Screen Urine POSITIVE (Not Detect); Cocaine Screen Urine Not Detected (Not Detect); Fentanyl, urine Not Detected (Not Detect); Opiate Screen Urine POSITIVE (Not Detect); Phencyclidine Screen Urine Not Detected (Not Detect)
[2023-02-19 14:00] VITALS: BP 170/84; PULSE 71; RESP 37; TEMP 37.9; O2SAT 97
[2023-02-19 14:00] LABS: Bacteria Urine 4+ (None Seen); Calcium Oxalate Crystals Urine Present; RBC Urine 0-2 /HPF (0-2); UACC Culture Trigger YES; WBC Urine 21-50 /HPF (0-5)
[2023-02-19] MEDS: Magnesium Hydrox/Alum Hydrox 30 ML ORAL.SUSP PO (14:40)
[2023-02-19] MEDS: Lidocaine HCl Viscous 2 % 15 ML SOLUTION 5 ML MUCOUS MEM (14:40)
[2023-02-19 14:49] VITALS: TEMP 37.6
[2023-02-19] MEDS: Famotidine/PF 20 MG/2 ML VIAL IVPUSH (14:55)
[2023-02-19 15:23] VITALS: BP 199/107; PULSE 94; RESP 37; TEMP 37.4; O2SAT 98
[2023-02-19] MEDS: Losartan Potassium 50 MG TABLET PO (15:44)
[2023-02-19] MEDS: Dicyclomine HCl 10 MG CAPSULE PO (15:44)
[2023-02-19] MEDS: Potassium Chloride ER 20 MEQ TAB.ER.PRT PO (15:45)
--- NOTE | 2023-02-19 15:51 | PC.NURSE ---
pt hypertensive, medicated per NOV.
[2023-02-19 16:35] VITALS: BP 176/103; PULSE 102; RESP 25; TEMP 37.1; O2SAT 98
[2023-02-19] MEDS: LORazepam 1 MG TABLET 2 MG PO (16:42)
== END 2023-02-19 16:50 | disposition still patient (30) ==
PROVIDERS: Physician Assistant; Registered Nurse Emergency; Emergency Provider Student in an Organized Health Care Education/Training Program; PCP Physician Assistant
DX: R11.2 Nausea with vomiting, unspecified (principal); Z20.822 Contact with and (suspected) exposure to COVID-19; R00.0 Tachycardia, unspecified; E11.9 Type 2 diabetes mellitus without complications; I10 Essential (primary) hypertension; E78.5 Hyperlipidemia, unspecified; F19.10 Other psychoactive substance abuse, uncomplicated; Z79.4 Long term (current) use of insulin; Z79.899 Other long term (current) drug therapy; Z79.02 Long term (current) use of antithrombotics/antiplatelets
CPT/HCPCS: 36415; 71045; 80053; 80307; 81001; 83690; 83735; 84484; 85025; 87086; 87635; 93005; 96361; 96372; 96374; 96375; 99285; J1200; J2765

== ENCOUNTER 2023-03-06 12:47 | Outpatient (REF) | payer OTHER, SELFPAY | END 2023-03-06 12:48 | disposition home or self-care (01) | LOC: HO.LAB 12:47 | PROVIDERS: Absent Provider Physician Assistant; PCP Physician Assistant; Visit Provider Internal Medicine | DX: R10.9 Unspecified abdominal pain (principal); G89.29 Other chronic pain; E83.52 Hypercalcemia; F12.20 Cannabis dependence, uncomplicated | CPT/HCPCS: 36415; 80053; 82306; 82330; 82728; 82784; 83970; 84443; 85027; 86364; 99202 ==

== ENCOUNTER 2023-03-30 13:23 | Outpatient (AMB) | payer OTHER, SELFPAY ==
[2023-03-30 13:30] VITALS: BP 124/68; PULSE 80; O2SAT 98; BMI 48.9
--- NOTE | 2023-03-30 13:30 | A.OFFPC_ITS ---
Vital Signs 03/30/23 13:30 Height 5 ft 1.5 in Weight 263 lb BMI 48.9 BP 124/68 Blood Pressure Location Lt brachial Position Sitting Pulse 80 Pulse Source Pulse Oximeter Pulse Oximetry (%) 98 Oxygen Delivery Method Room Air Intake Visit Reasons: PE Allergies ibuprofen [IBUPROFEN] Allergy (Unknown, Verified 03/30/23 13:41) SWELLING, face swelling seafood Allergy (Unknown, Verified 03/30/23 13:41) Anaphylaxis dulaglutide [From [facility]] Adverse Reaction (Intermediate, Verified 03/30/23 13:41) GI upset Medication List - Last Reconciled 03/30/23 by Alden Flores PA-C alcohol swabs (Alcohol Prep Pads) 1 pad topical TID 90 days atorvastatin 40 mg PO DAILY 90 days blood pressure monitor (Blood Pressure Kit) As directed blood sugar diagnostic (FreeStyle Lite Strips) USE 1 STRIP DIRECTED 3 TIMES A DAY FOR 30 DAYS TESTING TWICE PER DAY cholecalciferol (vitamin D3) 1,250 mcg PO QWEEK 8 weeks dicyclomine 20 mg PO TID 30 days ferrous sulfate 325 mg PO DAILY 30 days insulin glargine (Lantus Solostar U-100 Insulin) 30 units (0.3 mL) subcut DAILY 30 days insulin lispro (Humalog KwikPen (U-100) Insulin) 16 units (0.16 mL) subcut TID 30 days Lactobac. rhamnosus GG-inulin 10 billion cell -200 mg ([facility]) 1 cap PO DAILY lancets (FreeStyle Lancets) As directed losartan 50 mg PO DAILY 90 days magnesium oxide 400 mg PO DAILY metoclopramide HCl 5 - 10 mg PO TID omeprazole 40 mg PO DAILY 90 days pen needle, diabetic (BD Lis 2nd Gen Pen Needle) As directed promethazine 25 mg UT Q6H PRN safety needles (BD Eclipse) As directed tramadol 50 mg PO Q8H PRN 7 days Tobacco use date assessed: 01/11/23 Dental Screening Dental Screen Date: 03/30/23 Did you have a dental visit in the last 12 months?: No Did you have a dental problem in the last 6 months where you did not have access to dental care?: No Was dental information given to patient?: Patient has dentist HPI PE HPI Details Patient is a 43-year-old female here today for routine annual physical. ? Patient has a past medical history significant for morbid obesity, type 2 diabetes, hyperlipidemia, hypertension. . Chronic abd pain : Now seen pain management here in [place] along with a tile finisher. Will be due for CT of abdomen. DDX:pain syndrome in her abdomen vs IBS. She feels hopeful about treatment. ? Interval history--> Patient was seen at [facility] ER again for acute abdominal pain.? She was found to have low phosphate which resolved she has recurrent episodes of this abdominal pain.? She has used metoclopramide which has worked well in the past.? She has had gastric emptying study was was normal. She was previously treated for H pylori with follow-up endoscopy showing resolution.? The etiology of her episodic nausea vomiting remains unclear though possible cyclic vomiting syndrome. Currently she has been keeping a food diary and staying away from problem some foods though still remains with almost daily global eyes abdominal pain. At this time she seems frustrated as her activities of daily living have been altered due to her abdominal pain.? She would like a 2nd opinion from a tile finisher and perhaps seeing a paint roller cover machine setter as her chroni c abdominal pain continues to he into her life. .. Type 2 diabetes:? Patient continues on long-acting and short-acting insulin.? Blood sugars have been well managed at home. ? Her most recent A1c is 6.7 .. Obesity:? Has been able to reduce her weight with dietary modifications.? She still understands her BMI is well over 30 will work on being more physically active and continue dietary modifications to help lose weight. . Hypertension:? Blood pressure controlled today in office.? Patient denies any chest discomfort, headaches, dizziness or shortness of breath on exertion Vaccines: Up-to-date with pneumonia, tetanus and COVID vaccines. TOP TAPER MACHINE: has not seen a TOP TAPER MACHINE in quite a while .. Mammo : Gets a mammo q 6 months due to abnormal findings. Laboratory Tests 02/19/23 03/06/23 03/06/23 13:12 13:49 13:49 RBC 4.59 Hgb 11.9 L Potassium 4.1 D Random Glucose 164 H 25-OH Vitamin D To francine 20.8 TSH 0.85 PTH Intact Urine Opiates Scre en POSITIVE H U Marijuana (THC) Screen POSITIVE H IgA Tiss Transglutamin IgA 03/06/23 03/06/23 13:49 13:49 RBC Hgb Potassium Random Glucose 25-OH Vitamin D To francine TSH PTH Intact 30 Urine Opiates Scre en U Marijuana (THC) Screen IgA 235 Tiss Transglutamin IgA <1.0 PFSH Medical History (Updated 03/30/23 @ 16:39 by Alden Flores PA-C) Breast calcification, left Diabetes mellitus GERD (gastroesophageal reflux disease) Hyperlipidemia Hypertension Marijuana dependence Morbid obesity Surgical History History of cholecystectomy Hx of colonoscopy Family History Father Mental health disorder Mother Drug abuse Emphysema lung COPD (chronic obstructive pulmonary disease) Heart disease Mental health disorder Substance use disorder Sister Thyroid cancer Maternal Grandfather Colon cancer Maternal Grandmother Colon cancer Social History (Updated 03/30/23 @ 13:46 by Alden Flores PA-C) Housing: Apartment Alcohol intake: never Patient Tobacco Use Status: Never used Tobacco e-Cigarette/Vaping Use: Never Used Second Hand Smoke Exposure: No Substance Use Type: Marijuana service: No Current occupational status: employed 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 1. Little interest or pleasure in doing things: nearly every day 2. Feeling down, depressed, or hopeless: not at all 3. Trouble falling or staying asleep, or sleeping too much: several days 4. Feeling tired or having little energy: not at all 5. Poor appetite or overeating: several days 6. Feeling bad about yourself - or that you are a failure or have let yourself or your family down: several days 7. Trouble concentrating on things, such as reading the newspaper or watching television: several days 8. Moving or speaking so slowly that other people could have noticed. Or the opposite - being so fidgety or restless that you have been moving around a lot more than usual: not at all 9. Thoughts that you would be better off or of hurting yourself in some way: not at all Total score: 7 Depression Screening Interpretation: Positive [id number] - PHQ-9 Billing: Yes Source: Developed by Drs. Nate Vences, Rosa Velez, Buddy Jensen and colleagues, with an educational ale from [employer]. Thrive Questionnaire Date Thrive assessed: 01/11/23 AUDIT C Alcohol Use Questionnaire (AUDIT-C) 1. How often do you have a drink containing alcohol?: Never Total Score: 0 LUIS-7 AMB Questionnaire LUIS-7 Date LUIS - 7 assessed: 01/11/23 Source: Developed by Drs. Nate Vences, Rosa Velez, Buddy Jensen and colleagues, with an educational ale from [employer]. Review of Systems Const Denies body aches, Denies chills, Denies excessive sweating, Denies fatigue, Denies fever(s) and Denies headache(s) Eyes Denies blurry vision ENT Denies dysphagia, Denies vertigo, Denies dizziness, Denies headache(s), Denies hearing loss and Denies tinnitus Card Denies chest pain, Denies chest pain with activity, Denies syncope, Denies irregular heart rhythm and Denies dyspnea Resp Denies chest congestion, Denies cough, Denies hemoptysis, Denies dyspnea and Denies wheezing GI Denies abdominal pain, Denies melena, Denies hematochezia, Denies coffee ground emesis, Denies dysphagia, Denies diarrhea, Denies nausea and Denies vomiting Denies urinary frequency, Denies dysuria, Denies urinary hesitancy and Denies urinary urgency Musc Denies arthralgias, Denies limited range of motion, Denies muscle cramps and Denies muscle weakness Skin/Breast Denies rash and Denies skin ulcer Neuro Denies Abnormal speech present, Denies confusion, Denies vertigo, Denies dizziness, Denies syncope, Denies headache(s), Denies memory loss and Denies seizure-like activity Psych Denies anxiety, Denies confusion, Denies depression, Denies memory loss, Denies panic attacks and Denies paranoia Endo Denies excessive sweating, Denies fatigue, Denies flushing, Denies polydipsia and Denies polyuria Aller/Immun Denies wheezing Physical exam (Primary Care) Vital Signs: Last Vital Signs Pulse 80 03/30/23 13:30 BP 124/68 03/30/23 13:30 Pulse Ox 98 03/30/23 13:30 Oxygen Delivery Method Room Air 03/30/23 13:30 BMI result Body Mass Index 48.9 BMI Assessment/Plan discussion: High Tobacco/Smoking Status: Tobacco use Status Tobacco use date assessed 01/11/23 03/30/23 13:35 Patient Tobacco Use Status Never used Tobacco 03/30/23 13:46 e-Cigarette/Vaping Use Never Used 03/30/23 13:46 PHQ-9: PHQ-9 Score PHQ-9: Total score 7 03/30/23 13:43 Depression Screening Interpretation: Positive Thrive Assessment: Date of Thrive Assessment Date Thrive assessed 01/11/23 03/30/23 13:35 Const Other: Morbidly obese General: cooperative, comfortable, no acute distress, alert and awake; No confusion Orientation/consciousness: oriented to person, oriented to place, patient orient ed x3 and No confusion HENMT Head: Yes normocephalic Ears: external ears normal and TM's normal bilaterally Face and sinus: No sinus tenderness Mouth: Normal oral and palatal mucosa present and tongue normal Teeth and gingiva: dentition normal and gingiva normal Throat: Yes posterior oropharynx normal, Yes tonsils normal and Yes uvula midline Eyes Conjunctivae: conjunctivae normal Sclerae: sclerae normal Pupils: Equal, round and reactive pupils present EOM: EOMs intact bilaterally Direct Ophthalmoscopy: No no photophobia Neck Neck: Yes no lymphadenopathy, No tender and Yes no JVD Thyroid: Thyroid normal Carotids: no bruits Chest Chest palpation & inspection: no tenderness Resp Effort & Inspection: normal respiratory effort, no audible wheezes, not labored and no stridor Auscultation: no crackles, no rales, no rhonchi and no wheezes Cardio Jugular venous distension: no JVD Rate: regular rate, not bradycardic and not tachycardic Rhythm: regular rhythm Bruits: no carotid bruits Peripheral pulses: Peripheral pulses 2+ throughout GI Inspection: Yes normal to inspection, No abdominal wall ecchymosis and No visible herniation Palpation (GI): Soft to palpation, Tenderness to palpation present (GI) in the RUQ, no guarding, not rigid and No hepatosplenomegaly present Auscultation: normoactive bowel sounds General: Yes no CVA tenderness Back/Spine/Pelvis Back: no CVA tenderness and No back tenderness Cervical Spine: cervical ROM normal Thoracic/Lumbar Spine: thoracic and lumbar spine normal to inspection, straight leg raise negative bilaterally, No thoraco-lumbar ROM limited and No lumbar spinal tenderness Skin Lesions: no lesions Rashes: no rashes Wounds: no wounds Neuro General: oriented to person, oriented to place, patient oriented x3, CN's II-XI intact bilaterally and No confusion Cranial nerves: Yes Equal, round and reactive pupils present and Yes Normal accommodation reflex present Cognition (Neuro): normal cognition Speech: No Abnormal speech present Gait exam (Neuro): Normal gait present Motor exam (neuro): 5/5 motor strength present throughout Extrem Right upper extremity: full ROM; no cyanosis Left upper extremity: full ROM; no cyanosis Right lower extremity: no edema Left lower extremity: no edema Psych Appearance: grossly normal Mental Status: mental status grossly normal Affect: normal affect Attitude: cooperative Thought process: Normal thought process present Assessment and Plan Assessment & Plan (1) Annual physical exam: Code(s): Z00.00 - Encounter for general adult medical examination without abnormal findings (2) Chronic abdominal pain: Code(s): R10.9 - Unspecified abdominal pain; G89.29 - Other chronic pain Plan: Patient now followed by GI specialist. She is due for CT abdomen. Signs and symptoms still remain though tramadol does help reduce her pain. There are some concerns for irritable bowel syndrome or nerve related pain syndrome her abdomen. She remains hopeful that there could be treatment for this in order to get off of narcotic pain medication. (3) Hypertension: Code(s): I10 - Essential (primary) hypertension Qualifiers: Hypertension type: primary hypertension Qualified Code(s): I10 - Essential (primary) hypertension Plan: Blood pressure acceptable today in office. Will continue her current dose of antihypertensive medication with goal blood pressure to be below 140/90 (4) Hyperlipidemia: Code(s): E78.5 - Hyperlipidemia, unspecified Qualifiers: Hyperlipidemia type: mixed hyperlipidemia Qualified Code(s): E78.2 - Mixed hyperlipidemia Plan: Patient continues on statin therapy without side effect. Most recent lipid panel showing appropriate total cholesterol and LDL. Goal LDL to remain below 100 (5) Diabetes mellitus: Code(s): E11.9 - Type 2 diabetes mellitus without complications Qualifiers: Diabetes mellitus complication status: without complication Diabetes mellitus rat exterminator insulin use: without intermediate use Diabetes mellitus type: type 2 Qualified Code(s): E11.9 - Type 2 diabetes mellitus without complications Plan: Patient's diabetes has been well controlled on current anti-hyperglycemic medications. Goal A1c is to remain below 7.0 (6) Obese: Code(s): E66.9 - Obesity, unspecified Qualifiers: Body mass index: BMI 50.0-59.9 Obesity classification: adult class 3 (BMI >= 40) Obesity type: due to excess calories Serious obesity comorbidity presence: with serious comorbidity Qualified Code(s): E66.01 - Morbid (severe) obesity due to excess calories; Z68.43 - Body mass index [BMI] 50.0-59.9, adult Plan: Patient does understand her BMI remains above 40 will continue working on being more physically active and adapting to better eating habits to reduce her weight. (7) Truncal muscle weakness: Code(s): M62.81 - Muscle weakness (generalized) Plan: Patient reports she feels somewhat weak in her core. In the setting of chronic abdominal pain will send for physical therapy to help increase core strengthening Orders: Orders Comprehensive [place]. Panel Fast 3 Months E11.9 - Type 2 diabetes mellitus without complications Hemoglobin A1c 3 Months E11.9 - Type 2 diabetes mellitus without complications Complete Blood Count no Diff 3 Months E11.9 - Type 2 diabetes mellitus without complications Lipid Panel 3 Months E11.9 - Type 2 diabetes mellitus without complications PT Evaluation and Treatment Today M62.81 - Muscle weakness (generalized) Medications: Refilled insulin glargine (Lantus Solostar U-100 Insulin) 30 units (0.3 mL) subcut DAILY 30 days 15 mL 6RF E11.9 - Type 2 diabetes mellitus without complications tramadol 50 mg PO Q8H 7 days PRN 21 tabs 0RF pain G89.29 - Other chronic pain, R10.9 - Unspecified abdominal pain Coding Level of Care Code Est Pt Prev Care 40-64y(32271) Diagnoses Annual physical exam Z00.00 Chronic abdominal pain R10.9; G89.29 Hypertension I10 Hypertension type: primary hypertension Hyperlipidemia E78.2 Hyperlipidemia type: mixed hyperlipidemia Diabetes mellitus E11.9 Diabetes mellitus complication status: without complication Diabetes mellitus rat exterminator insulin use: without rat exterminator use Diabetes mellitus type: type 2 Obese E66.01; Z68.43 Body mass index: BMI 50.0-59.9 Obesity classification: adult class 3 (BMI >= 40) Obesity type: due to excess calories Serious obesity comorbidity presence: with serious comorbidity Truncal muscle weakness M62.81
== END 2023-03-30 14:18 | disposition home or self-care (01) ==
PROVIDERS: PCP Physician Assistant; Visit Provider Physician Assistant
DX: Z00.00 Encounter for general adult medical examination without abnormal findings (principal); E11.9 Type 2 diabetes mellitus without complications; E66.01 Morbid (severe) obesity due to excess calories; Z68.43 Body mass index [BMI] 50.0-59.9, adult; I10 Essential (primary) hypertension; R10.9 Unspecified abdominal pain; G89.29 Other chronic pain; E78.2 Mixed hyperlipidemia; M62.81 Muscle weakness (generalized)
CPT/HCPCS: 99396

== ENCOUNTER 2023-03-30 14:49 | Outpatient (REF) | payer OTHER, SELFPAY ==
--- NOTE | ~2023-03-30 | XR_ITS ---
EXAMINATION: XR ABDOMEN COMPLETE CLINICAL INDICATION: Abdominal pain. COMPARISON: None available. TECHNIQUE: Supine and upright films of the abdomen consisting of 5 images of the abdomen. FINDINGS: There is no evidence of free air, bowel obstruction, or ileus. Clips about the right upper quadrant seen consistent with cholecystectomy. No significant colonic stool burden is appreciated. There is facet arthropathy at the L4-L5 and L5-S1 disc space levels. Sacroiliac joints are unremarkable. Psoas margins appear intact. No definite calculi seen overlying the region of the kidneys. Multiple phleboliths seen about the pelvis. XR/XR abdomen min 2V IMPRESSION: No evidence of free air, ileus, or obstruction.
== END 2023-03-30 14:50 | disposition home or self-care (01) ==
LOC: HO.XRAY 14:49
PROVIDERS: PCP Physician Assistant; Visit Provider Nurse Practitioner Family
DX: R10.9 Unspecified abdominal pain (principal)
CPT/HCPCS: 74019

== ENCOUNTER → 2023-04-03 13:24 | Outpatient (BNVA) | payer OTHER, SELFPAY | PROVIDERS: PCP Physician Assistant; Visit Provider Internal Medicine ==

== ENCOUNTER 2023-04-04 11:44 | Outpatient (AMB) | payer OTHER, SELFPAY ==
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
[2023-04-04 11:46] VITALS: BP 122/68; PULSE 77; BMI 49.6
== END 2023-04-04 12:18 | disposition home or self-care (01) ==
PROVIDERS: PCP Physician Assistant; Visit Provider Internal Medicine
DX: R10.9 Unspecified abdominal pain (principal); G89.29 Other chronic pain; F12.20 Cannabis dependence, uncomplicated; K30 Functional dyspepsia
CPT/HCPCS: 99214

== ENCOUNTER → 2023-04-04 11:44 | Outpatient (BNVA) | payer OTHER, SELFPAY | PROVIDERS: PCP Physician Assistant; Visit Provider Internal Medicine | DX: R10.13 Epigastric pain (principal); R10.12 Left upper quadrant pain; K21.9 Gastro-esophageal reflux disease without esophagitis; F12.20 Cannabis dependence, uncomplicated; Z90.49 Acquired absence of other specified parts of digestive tract | CPT/HCPCS: 99212 ==

== ENCOUNTER 2023-06-13 09:50 | Outpatient (AMB) | payer OTHER, SELFPAY ==
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
[2023-06-13 09:51] VITALS: BP 124/66; PULSE 85; BMI 47.9
== END 2023-06-13 10:37 | disposition home or self-care (01) ==
PROVIDERS: PCP Physician Assistant; Visit Provider Internal Medicine
DX: R10.9 Unspecified abdominal pain (principal); G89.29 Other chronic pain; R11.2 Nausea with vomiting, unspecified
CPT/HCPCS: 99214

== ENCOUNTER → 2023-06-13 09:50 | Outpatient (BNVA) | payer OTHER, SELFPAY | PROVIDERS: PCP Physician Assistant; Visit Provider Internal Medicine | DX: R10.9 Unspecified abdominal pain (principal); R11.2 Nausea with vomiting, unspecified; G89.29 Other chronic pain | CPT/HCPCS: 99212 ==

== ENCOUNTER 2023-06-19 08:37 | Outpatient (REF) | payer OTHER, SELFPAY ==
[2023-06-22 06:23] LABS: C1 Esterase Inhibitor >100 % (>=68)
[2023-06-26 19:39] LABS: Porphobilinogen, Random Urine 0.113 mg/g creat (<0.22)
[2023-06-27 01:38] LABS: Porphyrins, Total Plasma 0.5 mcg/L (1.0-5.6)
== END 2023-06-19 08:38 | disposition home or self-care (01) ==
LOC: HO.LAB 08:37
PROVIDERS: PCP Physician Assistant; Visit Provider Internal Medicine
DX: R10.9 Unspecified abdominal pain (principal); G89.29 Other chronic pain
CPT/HCPCS: 36415; 82542; 82570; 83520; 84106; 86160; 86161

== ENCOUNTER 2023-07-04 09:24 | Outpatient (AMB) | payer OTHER, SELFPAY ==
[2023-07-04 09:29] VITALS: BP 116/82; PULSE 88; RESP 16; O2SAT 97; BMI 47.3
--- NOTE | 2023-07-04 09:29 | A.OFFPC_ITS ---
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 Accompanied by: Self / Same As Patient Allergies ibuprofen [IBUPROFEN] Allergy (Unknown, Verified 07/04/23 09:45) SWELLING, face swelling seafood Allergy (Unknown, Verified 07/04/23 09:45) Anaphylaxis dulaglutide [From [facility]] Adverse Reaction (Intermediate, Verified 07/04/23 09:45) GI upset Medication List - Last Reconciled 07/04/23 by Alden Flores PA-C alcohol swabs (Alcohol Prep Pads) 1 pad topical TID 90 days atorvastatin 40 mg PO DAILY 90 days blood pressure monitor (Blood Pressure Kit) As directed blood sugar diagnostic (FreeStyle Lite Strips) USE 1 STRIP DIRECTED 3 TIMES A DAY FOR 30 DAYS TESTING TWICE PER DAY cholecalciferol (vitamin D3) 1,250 mcg PO QWEEK 8 weeks insulin glargine (Lantus Solostar U-100 Insulin) 30 units (0.3 mL) subcut DAILY 30 days insulin lispro (Humalog KwikPen (U-100) Insulin) 16 units (0.16 mL) subcut TID 30 days Lactobac. rhamnosus GG-inulin 10 billion cell -200 mg ([facility] feedPack [facility]) 1 cap PO DAILY lancets (FreeStyle Lancets) As directed losartan 50 mg PO DAILY 90 days omeprazole 40 mg PO DAILY 90 days pen needle, diabetic (BD Lis 2nd Gen Pen Needle) As directed safety needles (BD Eclipse) As directed tramadol 50 mg PO Q8H PRN 15 days Tobacco use date assessed: 01/11/23 HPI 3mon f/u+ NEEDS PHQ9 W/ FUP LAST SCORE (+) HPI Details Patient is a 43-year-old female here today for f/u . ? Patient has a past medical history significant for morbid obesity, type 2 diabetes, hyperlipidemia, hypertension. . Chronic abd pain : Now seen pain management here in [place] along with a building drafter. Has had extensive workup thus form though no formal diagnosis as of yet. She has tried nortriptyline though felt it made her abdominal pain worse. Continues with tramadol though does take the edge though still has abdominal pain. 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 Her abdominal pain is mostly in the upper left and upper right quadrants and radiates to her flank areas. She does report some postprandial abdominal pain. ?--> Interval history--> Patient was seen at [facility] [place] ER again for acute abdominal pain.? She was found to have low phosphate which resolved she has recurrent episodes of this abdominal pain.? She has used metoclopramide which has worked well in the past.? She has had gastric emptying study was was normal. She was previously treated for H pylori with follow-up endoscopy showing resolution.? The etiology of her episodic nausea vomiting remains unclear though possible cyclic vomiting syndrome. Currently she has been keeping a food diary and staying away from problem some foods though still remains with almost daily global eyes abdominal pain. At this time she seems frustrated as her activities of daily living have been altered due to her abdominal pain.? .. Type 2 diabetes:? Patient continues on long-acting and short-acting insulin.? Blood sugars have been well managed at home. ? Her most recent A1c is 6.7 .. Obesity:? Has lost a few lb since last office visit. Has been able to reduce her weight with dietary modifications.? She still understands her BMI is well over 30 will work on being more physically active and continue dietary modifications to help lose weight. . Hypertension:? Blood pressure controlled today in office.? Patient denies any chest discomfort, headaches, dizziness or shortness of breath on exertion PFSH Medical History Marijuana dependence Hypertension Hyperlipidemia Diabetes mellitus Morbid obesity Breast calcification, left GERD (gastroesophageal reflux disease) Surgical History History of esophagogastroduodenoscopy (EGD) Hx of colonoscopy History of cholecystectomy Family History Father Mental health disorder Mother Drug abuse Emphysema lung COPD (chronic obstructive pulmonary disease) Heart disease Mental health disorder Substance use disorder Sister Thyroid cancer Maternal Grandfather Colon cancer Maternal Grandmother Colon cancer Social History Housing: Apartment Alcohol intake: never Patient Tobacco Use Status: Never used Tobacco e-Cigarette/Vaping Use: Never Used Second Hand Smoke Exposure: No Substance Use Type: Marijuana service: No Current occupational status: employed 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 1. Little interest or pleasure in doing things: not at all 2. Feeling down, depressed, or hopeless: more than half the days 3. Trouble falling or staying asleep, or sleeping too much: nearly every day 4. Feeling tired or having little energy: nearly every day 5. Poor appetite or overeating: more than half the days 6. Feeling bad about yourself - or that you are a failure or have let yourself or your family down: not at all 7. Trouble concentrating on things, such as reading the newspaper or watching television: several days 8. Moving or speaking so slowly that other people could have noticed. Or the opposite - being so fidgety or restless that you have been moving around a lot more than usual: several days 9. Thoughts that you would be better off or of hurting yourself in some way: not at all Total score: 12 52583 - PHQ-9 Billing: Yes Source: Developed by Drs. Nate Vences, Rosa Velez, Buddy Jensen and colleagues, with an educational ale from [employer]. Thrive Questionnaire Date Thrive assessed: 01/11/23 AUDIT C Alcohol Use Questionnaire (AUDIT-C) 1. How often do you have a drink containing alcohol?: Never 3. How often do you have six or more drinks on one occasion?: Never Total Score: 0 LUIS-7 AMB Questionnaire LUIS-7 Date LUIS - 7 assessed: 07/04/23 Feeling nervous, anxious, or on edge: 2 = More than half the days Not being able to stop or control worryin = More than half the days Worrying too much about different things: 2 = More than half the days Trouble relaxin = More than half the days Being so restless that it is hard to sit still: 1 = Several days Becoming easily annoyed or irritable: 2 = More than half the days Feeling afraid as if something awful might happen: 0 = Not at all Total LUIS-7 score (0-4 normal; 5-9 mild; 10-14 moderate; 15-21 severe): 11 Source: Developed by Drs. Nate Vences, Rosa Velez, Buddy Jensen and colleagues, with an educational ale from [employer]. LUIS-7 Assessment Billing LUIS-7 Assessment Tool: LUIS-7 Assessment 27586 Review of Systems Const Denies headache(s) Eyes Denies loss of vision ENT Denies vertigo, Denies dizziness, Denies headache(s) and Denies sore throat Card Denies chest pain, Denies leg edema and Denies lightheadedness Resp Denies cough, Denies hemoptysis and Denies wheezing GI Denies abdominal pain, Denies melena, Denies constipation, Denies diarrhea and Denies vomiting Denies urinary frequency, Denies dysuria and Denies urinary urgency Musc Denies arthralgias, Denies joint swelling, Denies numbness and Denies tingling Neuro Denies Abnormal speech present, Denies behavioral changes, Denies vertigo, Denies dizziness, Denies headache(s), Denies loss of vision, Denies memory loss, Denies numbness and Denies tingling Psych Denies anxiety, Denies behavioral changes, Denies depression, Denies memory loss and Denies panic attacks Gen/Lymph Denies easy bleeding and Denies easy bruising Aller/Immun Denies wheezing Physical exam (Primary Care) Vital Signs: Last Vital Signs Pulse 88 07/04/23 09:29 Resp 16 07/04/23 09:29 BP 116/82 07/04/23 09:29 Pulse Ox 97 07/04/23 09:29 Oxygen Delivery Method Room Air 07/04/23 09:29 BMI result Body Mass Index 47.3 Tobacco/Smoking Status: Tobacco use Status Tobacco use date assessed 01/11/23 07/04/23 09:29 Patient Tobacco Use Status Never used Tobacco 07/04/23 09:29 e-Cigarette/Vaping Use Never Used 07/04/23 09:29 PHQ-9: PHQ-9 Score PHQ-9: Total score 12 07/04/23 09:47 Thrive Assessment: Date of Thrive Assessment Date Thrive assessed 01/11/23 07/04/23 09:29 Const General: healthy appearing, no acute distress, alert and awake Nutritional Appearance: well nourished Orientation/consciousness: oriented to person, oriented to place and oriented to time HENMT Ears: TM's normal bilaterally General nose exam: Normal nasal mucous membranes and turbinates present Eyes Conjunctivae: conjunctivae normal Sclerae: sclerae normal Pupils: Equal, round and reactive pupils present Neck Neck: Yes no lymphadenopathy and Yes no JVD Thyroid: Thyroid normal Carotids: no bruits Resp Effort & Inspection: normal respiratory effort and not tachypneic Auscultation: no crackles, no rales, no rhonchi and no wheezes Cardio Rate: regular rate Rhythm: regular rhythm Heart sounds: no murmurs and normal S1 and S2 GI Palpation (GI): Soft to palpation, nontender, no hepatomegaly and no splenomegaly Auscultation: normal bowel sounds Skin General skin exam: no rashes or lesions noted and dry skin Neuro General: oriented to person, oriented to place and oriented to time Cranial nerves: Yes Equal, round and reactive pupils present Speech: No Abnormal speech present Gait exam (Neuro): Normal gait present Motor exam (neuro): no tremor noted Extrem Right upper extremity: full ROM Left upper extremity: full ROM Right lower extremity: full ROM; no edema Left lower extremity: full ROM; no edema Psych Mental Status: mental status grossly normal Speech and movement: Normal speech and movement present Affect: normal affect Attitude: cooperative Thought process: Normal thought process present Office Procedures Flu Questionnaire Does the patient have a severe egg allergy?: No Does the patient have severe life threatening allergies?: No Does the patient have a fever or illness today?: No Has the patient ever had Guillain-Mansfield Syndrome?: No Has the patient ever had any past reaction to a flu shot?: No Immunizations flu vacc [id number] 6mos up(PF) 60 mcg(15 mcgx4)/0.5 mL IM syringe Performing Provider: Alden Flores PA-C Performing Location: [facility] Administered by: SHILPA Terry on 07/04/23 10:15 Dose Route Admin Location Dispensed Lot Number Expiration Date NDC Flight Paramedic 0.5 mL IM Left Deltoid 0.5 mL [id number] 03/03/24 40798-139-82 [employer] VIS Given Date VIS Provided VIS Publication Date 07/04/23 Single Vaccine 21 Eligibility Eligibility Date Funding Source Not [facility] Eligible 07/04/23 Private Assessment and Plan Assessment & Plan (1) Chronic abdominal pain: Code(s): R10.9 - Unspecified abdominal pain; G89.29 - Other chronic pain Plan: Patient now followed by GI specialist. Signs and symptoms still remain though tramadol does help reduce her pain. There are some concerns for irritable bowel syndrome or nerve related pain syndrome her abdomen. She remains hopeful that there could be treatment for this in order to get off of narcotic pain medication. She is willing to try gabapentin for her abdominal pain as a trial. Due to her reports of postprandial abdominal pain. Will send for RAST allergen panel to see if she has a food sensitivity. (2) Hypertension: Code(s): I10 - Essential (primary) hypertension Qualifiers: Hypertension type: primary hypertension Qualified Code(s): I10 - Essential (primary) hypertension Plan: Blood pressure acceptable today in office. Will continue her current dose of antihypertensive medication with goal blood pressure to be below 140/90 (3) Hyperlipidemia: Code(s): E78.5 - Hyperlipidemia, unspecified Qualifiers: Hyperlipidemia type: mixed hyperlipidemia Qualified Code(s): E78.2 - Mixed hyperlipidemia Plan: Patient continues on statin therapy without side effect. Most recent lipid panel showing appropriate total cholesterol and LDL. 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 Goal A1c is to remain below 7.0 (5) Obese: Code(s): E66.9 - Obesity, unspecified Qualifiers: Obesity type: due to excess calories Obesity classification: adult class 3 (BMI >= 40) Serious obesity comorbidity presence: with serious comorbidity Body mass index: BMI 50.0-59.9 Qualified Code(s): E66.01 - Morbid (severe) obesity due to excess calories; Z68.43 - Body mass index [BMI] 50.0- 59.9, adult Plan: Patient does understand her BMI remains above 40 will continue working on being more physically active and adapting to better eating habits to reduce her weight. Orders: Orders Influenza [id number] Immunization Today Z23 - Encounter for immunization Rast Allergen Today G89.29 - Other chronic pain, R10.9 - Unspecified abdominal pain Referrals Allergy & Immunology Referral G89.29 - Other chronic pain, R10.9 - Unspecified abdominal pain Pain Management Referral G89.29 - Other chronic pain, R10.9 - Unspecified abdominal pain Medications: New gabapentin 300 mg PO BID 30 days 60 caps 0RF G89.29 - Other chronic pain, R10.9 - Unspecified abdominal pain flu vacc [id number] 6mos up(PF) 0.5 mL IM ONCE 0.5 mL 0RF Z23 - Encounter for immunization Coding Level of Care Code Est Pt Level 4 (64973) Diagnoses Chronic abdominal pain R10.9; G89.29 Primary hypertension I10 Hypertension type: primary hypertension Mixed hyperlipidemia E78.2 Hyperlipidemia type: mixed hyperlipidemia Type 2 diabetes mellitus without complication, without long-term current use of insulin E11.9 Diabetes mellitus type: type 2 Diabetes mellitus usp insulin use: without 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
== END 2023-07-04 10:16 | disposition home or self-care (01) ==
PROVIDERS: PCP Physician Assistant; Visit Provider Physician Assistant
DX: Z23 Encounter for immunization (principal); R10.9 Unspecified abdominal pain; G89.29 Other chronic pain; E11.9 Type 2 diabetes mellitus without complications; I10 Essential (primary) hypertension
CPT/HCPCS: 90471; 90686; 99214

== ENCOUNTER 2023-07-13 14:43 | Outpatient (REF) | payer OTHER, SELFPAY ==
--- NOTE | ~2023-07-13 | US_ITS ---
EXAMINATION:US pelvic and transvaginal CLINICAL INFORMATION: Reason for Exam R10.2 - Pelvic and perineal pain COMPARISON: No priors available. LMP: 07/04/2023 FINDINGS: UTERUS: The uterus is anteverted. Size: 8.7 x 4.9 x 3.2 cm. Uterine mass: Multiple small uterine masses likely fibroids measuring up to 1.4 cm, 1.5 cm and 0.9 cm. Likely uterine fibroids. Echogenic structure along the anterior wall of the uterus possibly calcifications. Cervix: Grossly unremarkable. Endometrium: No ultrasound evidence of endometrial lesion. endometrial thickness measures ADNEXA: Normal Right ovary: Normal in size. Left ovary: Normal in size. Doppler exam: Normal Doppler flow identified in both ovaries. FREE FLUID: Trace amount of free fluid. OTHER FINDINGS: None US/US pelvic and transvaginal IMPRESSION: * Multiple small uterine masses likely fibroids the largest measure up to 1.5 cm. * Echogenic structure along the anterior wall of the uterus probably calcifications such as calcified vessel., This is probably of no clinical significance.
== END 2023-07-13 14:44 | disposition home or self-care (01) ==
LOC: HO.US 14:43
PROVIDERS: PCP Physician Assistant; Visit Provider Internal Medicine
DX: R10.2 Pelvic and perineal pain (principal)
CPT/HCPCS: 76830; 76856

== ENCOUNTER 2023-10-25 14:12 | Outpatient (REF) | payer OTHER, SELFPAY ==
[2023-10-25 15:20] LABS: Estimated Average Glucose 166 mg/dL; Hemoglobin A1c % 7.4 % (<6.0)
[2023-10-25 15:21] LABS: Hematocrit 36.3 % (37.0-47.0); Hemoglobin 11.5 g/dl (12.0-16.0); Mean Corpuscular HGB Conc 31.7 g/dl (31.0-35.0); Mean Corpuscular Hemoglobin 25.3 pg (27.0-33.0); Mean Corpuscular Volume 79.8 fL (80.0-98.0); Mean Platelet Volume 10.3 fL (9.4-12.3); Platelet Count 364 X10*3/uL (160-400); Red Blood Count 4.55 X10*6/uL (4.20-5.50); Red Cell Distribution Width 17.4 % (11.0-16.0); White Blood Count 12.2 X10*3/uL (4.8-10.8)
[2023-10-25 15:53] LABS: Alanine Aminotransferase 22 U/L (0-31); Alkaline Phosphatase 68 U/L (39-117); Anion Gap 13 (12-20); Aspartate Amino Transferase 14 U/L (5-31); Bilirubin Total 0.3 mg/dL (0.0-1.0); Blood Urea Nitrogen 8 mg/dL (9-16); Calcium 9.7 mg/dL (8.4-10.2); Carbon Dioxide 27 mmol/L (22-29); Chloride 104 mmol/L (96-108); Cholesterol 177 mg/dL (<200); Estimated Glomerular Filt Rate > 60; Glucose Fasting 134 mg/dL (60-99); HDL Cholesterol 31 mg/dL (>40); LDL Cholesterol Calculated 122 mg/dL (<100); Potassium 3.7 mmol/L (3.3-5.1); Sodium 140 mmol/L (135-145); Total Protein 7.5 g/dL (6.5-8.0); Triglycerides 124 mg/dL (<150)
== END 2023-10-25 14:13 | disposition home or self-care (01) ==
LOC: HO.LAB 14:12
PROVIDERS: Absent Provider Internal Medicine; PCP Physician Assistant; Visit Provider Physician Assistant
DX: E11.9 Type 2 diabetes mellitus without complications (principal); R10.9 Unspecified abdominal pain; G89.29 Other chronic pain
CPT/HCPCS: 36415; 80053; 80061; 83036; 85027; 86003

== ENCOUNTER 2023-10-26 15:30 | Outpatient (REF) | payer OTHER, SELFPAY | END 2023-10-26 15:31 | disposition home or self-care (01) | LOC: HO.LNP 15:30 | PROVIDERS: Visit Provider Internal Medicine | DX: Z13.89 Encounter for screening for other disorder (principal) ==

== ENCOUNTER 2023-10-30 12:32 | Outpatient (AMB) | payer OTHER, SELFPAY ==
--- NOTE | 2023-10-30 13:02 | A.OFFVIS_ITS ---
Intake Vital Signs 10/30/23 13:05 Height 5 ft 1.5 in Weight 253 lb 8.505 oz BMI 47.1 BP 124/72 Intake Visit Reasons: New patient Leiomyoma Of uterus Furnace Clerk Required: No Information Interpreted: non-clinical & clinical Ceramics Instructor: Ceramics Instructor Present (April CROOKS) Accompanied by: Aunt Allergies ibuprofen [IBUPROFEN] Allergy (Unknown, Verified 10/30/23 13:06) SWELLING, face swelling seafood Allergy (Unknown, Verified 10/30/23 13:06) Anaphylaxis dulaglutide [From Trulicity] Adverse Reaction (Intermediate, Verified 10/30/23 13:06) GI upset Is last menstrual period known: Yes Last menstrual period: 10/26/23 HPI HPI Comments History of Present Illness Details Presenting complaining of heavy menstrual cycles associated with pelvic cramping and passage of blood clots. Last co testing was many years ago Last mammogram was in 05/26 was BI-RADS 4, breast biopsy showed fibrocystic disease Pelvic ultrasound showed the following: UTERUS: The uterus is anteverted. Size: 8.7 x 4.9 x 3.2 cm. Uterine mass: Multiple small uterine masses likely fibroids measuring up to 1.4 cm, 1.5 cm and 0.9 cm. Likely uterine fibroids. Echogenic structure along the anterior wall of the uterus possibly calcifications. Cervix: Grossly unremarkable. Endometrium: No ultrasound evidence of endometrial lesion. endometrial thickness measures ADNEXA: Normal Right ovary: Normal in size. Left ovary: Normal in size. Doppler exam: Normal Doppler flow identified in both ovaries. FREE FLUID: Trace amount of free fluid. OTHER FINDINGS: None [facility] Medical History Marijuana dependence Hypertension Hyperlipidemia Diabetes mellitus Morbid obesity Breast calcification, left GERD (gastroesophageal reflux disease) Surgical History History of esophagogastroduodenoscopy (EGD) Hx of colonoscopy History of cholecystectomy Family History Father Mental health disorder Mother Drug abuse Emphysema lung COPD (chronic obstructive pulmonary disease) Heart disease Mental health disorder Substance use disorder Sister Thyroid cancer Maternal Grandfather Colon cancer Maternal Grandmother Colon cancer Social History Housing: Apartment Alcohol intake: never Patient Tobacco Use Status: Never used Tobacco e-Cigarette/Vaping Use: Never Used Second Hand Smoke Exposure: No Substance Use Type: Marijuana service: No Current occupational status: employed 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 Current occupational exposures/hazards: No Cognitive needs: No Hearing needs: No Vision needs: Yes Female Reproductive History Menstrual Age of Menarche: 13 Duration of menses: 3-5 days Date of last menstrual period: 10/26/23 Total pregnancies: 0 Review of Systems Const All systems reviewed & are unremarkable except as noted in HPI and below Card Reports as per HPI Resp Reports as per HPI GI Reports as per HPI and Reports no additional complaints Reports as per HPI Physical Exam Vital Signs: Last Vital Signs BP 124/72 10/30/23 13:05 BMI result Body Mass Index 47.1 Const General: cooperative, healthy appearing and comfortable Chest Chest palpation & inspection: normal inspection of the chest and normal palpation of entire chest wall Breast/axilla inspection: normal inspection of the breasts and normal inspection of the axillae Breast/axilla palpation: normal palpation of the breasts, normal palpation of the axillae and no axillary lymphadenopathy Resp Effort & Inspection: normal respiratory effort Auscultation: clear to auscultation bilaterally Percussion: percussion normal Cardio Palpation: normal PMI Rate: regular rate Rhythm: regular rhythm Heart sounds: no murmurs and no rubs Peripheral pulses: Peripheral pulses 2+ throughout GI Inspection: Yes normal to inspection Palpation (GI): Soft to palpation, nontender, no guarding, not rigid and No hepatosplenomegaly present Percussion: Yes normal to percussion Auscultation: normal bowel sounds Rectal Exam - Female: deferred General: Yes bladder normal to palpation External Female Exam: No lesion Speculum Exam - Vagina: normal appearance of the vagina, normal palpation, normal vaginal discharge and not erythematous Speculum Exam - Cervix: normal appearance of the cervix and normal palpation Bimanual exam- vagina & uterus: normal bimanual exam, normal palpation, uterine size normal, bladder normal to palpation, consistency normal and normal palpation Bimanual Exam- Adnexa, other: normal adnexae, no masses and no tenderness Assessment & Plan Assessment & Plan (1) Abnormal uterine bleeding: Code(s): N93.9 - Abnormal uterine and vaginal bleeding, unspecified Plan: Screening mammogram, Co testing done, GC and chlamydia taken CBC, TSH, prolactin, HCG, and pelvic ultrasound ordered. Discussed with the patient the different causes of abnormal bleeding including thyroid disorders, uterine and ovarian pathology, endometrial hyperplasia, carcinoma and other potential causes. Discussed with the patient the work up including CBC (to r/o anemia), TSH, pelvic Ultrasound, endometrial biopsy to r/o endometrial pathology. All questions answered and the patient verbalized understanding. Instructed the patient to schedule an appointment for an endometrial biopsy in 2 weeks. (2) Myoma: Code(s): D21.9 - Benign neoplasm of connective and other soft tissue, unspecified Plan: Discussed with the patient the results of the ultrasound and the size of the myomas. Discussed with the patient risk of myosarcoma and symptoms that are caused by myomas including but not limited to pelvic pain, pressure symptoms, abnormal uterine bleeding. In addition discussed with the patient options of treatment for myomas including: Serial ultrasounds periodically to follow-up on the size of the myoma while targeting the treatment against fibroids related symptoms ( control pills, Mirena IUD, progesterone treatment, GnRH agonist/antagonist, uterine artery embolization or endometrial ablation) versus surgical treatment including hysterectomy and or myomectomy. All pros and cons, risks and benefits of all options were discussed with the patient. The patient understands that delay in surgical treatment in case of myosarcoma can affect her prognosis, after further discussion, the patient decided to think about it and get back to us next visit Orders: Orders Pap Smear Today D25.9 - Leiomyoma of uterus, unspecified, R10.2 - Pelvic and perineal pain CT NG by PCR Today D25.9 - Leiomyoma of uterus, unspecified, R10.2 - Pelvic and perineal pain TSH reflex Free T4 Today N93.9 - Abnormal uterine and vaginal bleeding, unspecified Prolactin Today N93.9 - Abnormal uterine and vaginal bleeding, unspecified HCG Quantitative Today N93.9 - Abnormal uterine and vaginal bleeding, unspecified Complete Blood Count no Diff Today N93.9 - Abnormal uterine and vaginal bleeding, unspecified MM screening mammo BI Today Z12.31 - Encounter for screening mammogram for malignant neoplasm of breast Coding Level of Care Code New Pt Level 3 (88868) Diagnoses Abnormal uterine bleeding N93.9 Myoma D21.9
[2023-10-30 13:05] VITALS: BP 124/72; BMI 47.1
== END 2023-10-30 13:28 | disposition home or self-care (01) ==
LOC: HO.HWS 12:33
PROVIDERS: PCP Physician Assistant; Visit Provider Obstetrics & Gynecology
DX: N93.9 Abnormal uterine and vaginal bleeding, unspecified (principal); D21.9 Benign neoplasm of connective and other soft tissue, unspecified
CPT/HCPCS: 99203

== ENCOUNTER 2023-10-30 12:32 | Outpatient (REF) | payer OTHER, SELFPAY ==
[2023-10-30 14:18] LABS: Hematocrit 36.4 % (37.0-47.0); Hemoglobin 11.7 g/dl (12.0-16.0); Mean Corpuscular HGB Conc 32.1 g/dl (31.0-35.0); Mean Corpuscular Hemoglobin 25.3 pg (27.0-33.0); Mean Corpuscular Volume 78.6 fL (80.0-98.0); Mean Platelet Volume 10.6 fL (9.4-12.3); Platelet Count 375 X10*3/uL (160-400); Red Blood Count 4.63 X10*6/uL (4.20-5.50); Red Cell Distribution Width 17.3 % (11.0-16.0); White Blood Count 11.2 X10*3/uL (4.8-10.8)
[2023-10-30 15:19] LABS: HCG Quantitative < 2 mIU/mL; TSH reflex Free T4 0.63 uIU/mL (0.32-4.0)
[2023-10-30 17:21] LABS: CT PCR NOT DETECTED (Not Detect.); NG PCR NOT DETECTED (Not Detect.)
[2023-10-31 17:04] LABS: Prolactin 10.5 ng/mL
== END 2023-10-30 12:33 | disposition home or self-care (01) ==
LOC: HO.LAB 12:32
PROVIDERS: PCP Physician Assistant; Visit Provider Obstetrics & Gynecology
DX: D25.9 Leiomyoma of uterus, unspecified (principal); R10.2 Pelvic and perineal pain; N93.9 Abnormal uterine and vaginal bleeding, unspecified
CPT/HCPCS: 0353U; 84146; 84443; 84702; 85027

== ENCOUNTER 2023-10-30 12:48 | Outpatient (REF) | payer OTHER, SELFPAY ==
[2023-11-05 11:04] LABS: HPV mRNA E6/E7 rflx Not Detected (Not Detected)
[2023-11-09 12:52] LABS: Total Volume, Porphyrins 24Hr NTV
== END 2023-10-30 12:49 | disposition home or self-care (01) ==
LOC: HO.LNP 12:48
PROVIDERS: Obstetrics & Gynecology; Visit Provider Internal Medicine
DX: Z12.4 Encounter for screening for malignant neoplasm of cervix (principal); Z11.51 Encounter for screening for human papillomavirus (HPV); R10.2 Pelvic and perineal pain; G89.29 Other chronic pain; D25.9 Leiomyoma of uterus, unspecified; N93.9 Abnormal uterine and vaginal bleeding, unspecified
CPT/HCPCS: 84120; 87624; 88142; 99202

== ENCOUNTER 2023-11-20 09:45 | Outpatient (AMB) | payer OTHER, SELFPAY ==
[2023-11-20 09:47] VITALS: BP 142/80; PULSE 84; RESP 17; O2SAT 98; BMI 46.4
--- NOTE | 2023-11-20 09:47 | MHC.PC.OV ---
Vital Signs 11/20/23 09:47 Height 5 ft 1.5 in Weight 249 lb 6 oz BMI 46.4 BP 142/80 H Blood Pressure Location Lt brachial Position Sitting Respiration 17 Pulse 84 Pulse Source Pulse Oximeter Pulse Oximetry (%) 98 Oxygen Delivery Method Room Air Intake Visit Reasons: f/u DMII Inpatient Pharmacist Required: No Accompanied by: Self / Same As Patient Allergies ibuprofen [IBUPROFEN] Allergy (Unknown, Verified 11/20/23 10:10) SWELLING, face swelling seafood Allergy (Unknown, Verified 11/20/23 10:10) Anaphylaxis dulaglutide [From Trulicity] Adverse Reaction (Intermediate, Verified 11/20/23 10:10) GI upset Medication List - Last Reconciled 11/20/23 by Alden Flores PA-C alcohol swabs (Alcohol Prep Pads) 1 pad topical TID 90 days atorvastatin 40 mg PO DAILY 90 days blood pressure monitor (Blood Pressure Kit) As directed blood sugar diagnostic (FreeStyle Lite Strips) USE 1 STRIP DIRECTED 3 TIMES A DAY FOR 30 DAYS TESTING TWICE PER DAY buprenorphine-naloxone 4-1 mg (Suboxone) film sublingual cholecalciferol (vitamin D3) 1,250 mcg PO QWEEK 8 weeks gabapentin 400 mg PO BID 30 days insulin aspart U-100 16 units (0.16 mL) subcut TID 30 days insulin glargine (Lantus Solostar U-100 Insulin) 30 units (0.3 mL) subcut DAILY 30 days insulin lispro (Humalog KwikPen (U-100) Insulin) 16 units (0.16 mL) subcut TID 30 days Lactobac. rhamnosus GG-inulin 10 billion cell -200 mg ([facility]) 1 cap PO DAILY lancets (FreeStyle Lancets) As directed losartan 50 mg PO DAILY 90 days omeprazole 40 mg PO DAILY 90 days pen needle, diabetic (BD Lis 2nd Gen Pen Needle) As directed safety needles (BD Eclipse) As directed Tobacco use date assessed: 11/20/23 HPI f/u DMII HPI Details Patient is a 43-year-old female here today for f/u . ? Patient has a past medical history significant for morbid obesity, type 2 diabetes, hyperlipidemia, opiate dependency, hypertension. Patient recently admitted to [facility] due to acute abdominal pain and hyperglycemia. Was found to have mild DKA in the setting of opiate withdrawal and insulin noncompliance. She admitted to using illicit hydromorphone and oxycodone was transition to Suboxone. * INTERESTINGLY SINCE SHE HAS BEEN STARTED ON SUBOXONE HER ABDOMINAL PAIN HAS RESOLVED. She still is fairly emotional as she has been dealing with family issues regarding her son and her partner. She is trying to better herself to get her full custody of her son. . Chronic abd pain : Now seen pain management here in [place] along with a certified residential medication aide. Has had extensive workup thus form though no formal diagnosis as of yet. She has tried nortriptyline though felt it made her abdominal pain worse. Continues with tramadol though does take the edge though still has abdominal pain. She was advised to follow up her division manager for possible division manager etiology. Her abdominal pain is mostly in the upper left and upper right quadrants and radiates to her flank areas. She does report some postprandial abdominal pain. ?--> Interval history--> Patient was seen at [facility] ER again for acute abdominal pain.? She was found to have low phosphate which resolved she has recurrent episodes of this abdominal pain.? She has used metoclopramide which has worked well in the past.? She has had gastric emptying study was was normal. She was previously treated for H pylori with follow-up endoscopy showing resolution.? The etiology of her episodic nausea vomiting remains unclear though possible cyclic vomiting syndrome. Currently she has been keeping a food diary and staying away from problem some foods though still remains with almost daily global eyes abdominal pain. At this time she seems frustrated as her activities of daily living have been altered due to her abdominal pain.? .. Type 2 diabetes:? Patient continues on long-acting and short-acting insulin.? Blood sugars have been well managed at home. ? Her most recent A1c is 6.7. .. Hyperlipidemia: Most recent lipid panel showing slightly elevated LDL at 122. She has restarted statin therapy. Will recheck lipid panel before next office visit. Goal LDL to be below 100 .. Obesity:? Has lost a few lb since last office visit. Has been able to reduce her weight with dietary modifications.? She still understands her BMI is well over 30 will work on being more physically active and continue dietary modifications to help lose weight. . Hypertension:? Blood pressure controlled today in office.? Patient denies any chest discomfort, headaches, dizziness or shortness of breath on exertion. Laboratory Tests 02/19/23 10/25/23 10/25/23 12:40 14:36 14:36 WBC 15.6 H 12.2 H Hgb Fasting Glucose 134 H Hemoglobin A1c % 7.4 H Cholesterol 177 LDL Cholesterol, C alc 122 H TSH Prolactin 10/30/23 10/30/23 13:49 13:49 WBC 11.2 H Hgb 11.7 L Fasting Glucose Hemoglobin A1c % Cholesterol LDL Cholesterol, C alc TSH 0.63 Prolactin 10.5 PFSH Medical History Marijuana dependence Hypertension Hyperlipidemia Diabetes mellitus Morbid obesity Breast calcification, left GERD (gastroesophageal reflux disease) Surgical History History of esophagogastroduodenoscopy (EGD) Hx of colonoscopy History of cholecystectomy Family History Father Mental health disorder Mother Drug abuse Emphysema lung COPD (chronic obstructive pulmonary disease) Heart disease Mental health disorder Substance use disorder Sister Thyroid cancer Maternal Grandfather Colon cancer Maternal Grandmother Colon cancer Social History Housing: Apartment Alcohol intake: never Patient Tobacco Use Status: Never used Tobacco e-Cigarette/Vaping Use: Never Used Second Hand Smoke Exposure: No Substance Use Type: Marijuana service: No Current occupational status: employed Current occupation: [employer] Current occupational exposures/hazards: No Cognitive needs: No Hearing needs: No Vision needs: Yes Female Reproductive History Menstrual Age of Menarche: 13 Questionnaire PHQ-9 Over the last 2 weeks, how often have you been bothered by any of the following problems? 1. Little interest or pleasure in doing things: several days 2. Feeling down, depressed, or hopeless: several days 3. Trouble falling or staying asleep, or sleeping too much: several days 4. Feeling tired or having little energy: more than half the days 5. Poor appetite or overeating: not at all 6. Feeling bad about yourself - or that you are a failure or have let yourself or your family down: more than half the days 7. Trouble concentrating on things, such as reading the newspaper or watching television: not at all 8. Moving or speaking so slowly that other people could have noticed. Or the opposite - being so fidgety or restless that you have been moving around a lot more than usual: not at all 9. Thoughts that you would be better off or of hurting yourself in some way: not at all Total score: 7 Depression Screening Interpretation: Positive Depression Screening Follow-up: Existing condition and In treatment Depression Screening Done: Yes 02101 - PHQ-9 Billing: Yes Source: Developed by Drs. Nate Vences, Rosa Velez, Buddy Jensen and colleagues, with an educational ale from [employer]. Thrive Questionnaire Date Thrive assessed: 11/20/23 I am a: Patient What is your living situation today?: I have a steady place to live Within the past 12 months, did the food you bought not last and you didn't have the money to get more?: Never true Within the past 12 months, did you worry whether your food would run out before you got money to buy more?: Never true Do you have trouble paying for medicines?: No Do you have trouble getting transportation to medical appointments?: No Do you have trouble paying your heating and electricity bill?: No Do you have trouble taking care of your child, family member or friend?: No Do you have trouble with day-to-day activities such as bathing, preparing meals, shopping, managing finances, etc.?: No Are you currently unemployed and looking for a job?: No Are you interested in more education?: No Please select the resources that you would like help with: None Currently or been in a relationship where the following occur: no concerns reported THRIVE Score: 0 AUDIT C Alcohol Use Questionnaire (AUDIT-C) 1. How often do you have a drink containing alcohol?: Never 3. How often do you have six or more drinks on one occasion?: Never Total Score: 0 LUIS-7 AMB Questionnaire LUIS-7 Date LUIS - 7 assessed: 11/20/23 Feeling nervous, anxious, or on edge: 1 = Several days Not being able to stop or control worryin = Several days Worrying too much about different things: 1 = Several days Trouble relaxin = Several days Being so restless that it is hard to sit still: 0 = Not at all Becoming easily annoyed or irritable: 0 = Not at all Feeling afraid as if something awful might happen: 1 = Several days Total LUIS-7 score (0-4 normal; 5-9 mild; 10-14 moderate; 15-21 severe): 5 Source: Developed by Drs. Nate Vences, Rosa Velez, Buddy Jensen and colleagues, with an educational ale from [employer]. LUIS-7 Assessment Billing LUIS-7 Assessment Tool: LUIS-7 Assessment 72596 Review of Systems Const Denies headache(s) Eyes Denies loss of vision ENT Denies vertigo, Denies dizziness, Denies headache(s) and Denies sore throat Card Denies chest pain, Denies leg edema and Denies lightheadedness Resp Denies cough, Denies hemoptysis and Denies wheezing GI Denies abdominal pain, Denies melena, Denies constipation, Denies diarrhea and Denies vomiting Denies urinary frequency, Denies dysuria and Denies urinary urgency Musc Denies arthralgias, Denies joint swelling, Denies numbness and Denies tingling Neuro Denies Abnormal speech present, Denies behavioral changes, Denies vertigo, Denies dizziness, Denies headache(s), Denies loss of vision, Denies memory loss, Denies numbness and Denies tingling Psych Denies anxiety, Denies behavioral changes, Denies depression, Denies memory loss and Denies panic attacks Gen/Lymph Denies easy bleeding and Denies easy bruising Aller/Immun Denies wheezing Physical exam (Primary Care) Vital Signs: Last Vital Signs Pulse 84 11/20/23 09:47 Resp 17 11/20/23 09:47 BP 142/80 H 11/20/23 09:47 Pulse Ox 98 11/20/23 09:47 Oxygen Delivery Method Room Air 11/20/23 09:47 BMI result Body Mass Index 46.4 Tobacco/Smoking Status: Tobacco use Status Tobacco use date assessed 11/20/23 11/20/23 09:50 Patient Tobacco Use Status Never used Tobacco 11/20/23 09:48 e-Cigarette/Vaping Use Never Used 11/20/23 09:48 PHQ-9: PHQ-9 Score PHQ-9: Total score 7 11/20/23 10:07 Depression Screening Interpretation: Positive Depression Screening Follow-up: Existing condition and In treatment Thrive Assessment: Date of Thrive Assessment Date Thrive assessed 11/20/23 11/20/23 10:01 Currently or been in a relationship where the following occur: no concerns reported Const General: healthy appearing, no acute distress, alert and awake Nutritional Appearance: well nourished Orientation/consciousness: oriented to person, oriented to place and oriented to time HENMT Ears: TM's normal bilaterally General nose exam: Normal nasal mucous membranes and turbinates present Eyes Conjunctivae: conjunctivae normal Sclerae: sclerae normal Pupils: Equal, round and reactive pupils present Neck Neck: Yes no lymphadenopathy and Yes no JVD Thyroid: Thyroid normal Carotids: no bruits Resp Effort & Inspection: normal respiratory effort and not tachypneic Auscultation: no crackles, no rales, no rhonchi and no wheezes Cardio Rate: regular rate Rhythm: regular rhythm Heart sounds: no murmurs and normal S1 and S2 GI Palpation (GI): Soft to palpation, nontender, no hepatomegaly and no splenomegaly Auscultation: normal bowel sounds Skin General skin exam: no rashes or lesions noted and dry skin Neuro General: oriented to person, oriented to place and oriented to time Cranial nerves: Yes Equal, round and reactive pupils present Speech: No Abnormal speech present Gait exam (Neuro): Normal gait present Motor exam (neuro): no tremor noted Extrem Right upper extremity: full ROM Left upper extremity: full ROM Right lower extremity: full ROM; no edema Left lower extremity: full ROM; no edema Psych Mental Status: mental status grossly normal Speech and movement: Normal speech and movement present Affect: normal affect Attitude: cooperative Thought process: Normal thought process present Assessment and Plan Assessment & Plan (1) Diabetes mellitus: Code(s): E11.9 - Type 2 diabetes mellitus without complications Qualifiers: Diabetes mellitus complication status: without complication Diabetes mellitus it coordinator insulin use: without long-term use Diabetes mellitus type: type 2 Qualified Code(s): E11.9 - Type 2 diabetes mellitus without complications Plan: Patient's diabetes has been well controlled on current anti-hyperglycemic medications. She is restarted her insulin regime. Goal A1c is to remain below 7.0 (2) Chronic abdominal pain: Code(s): R10.9 - Unspecified abdominal pain; G89.29 - Other chronic pain Plan: As per HPI patient has been transition to Suboxone due to her illicit use of oxycodone hydromorphone. She interestingly reports that her abdominal pain has resolved since started on Suboxone. Of note her RAST allergy panel does show some positive allergy antibodies to a few foods in her diet she may consume such as avocado was and bananas (3) Hypertension: Code(s): I10 - Essential (primary) hypertension Qualifiers: Hypertension type: primary hypertension Qualified Code(s): I10 - Essential (primary) hypertension Plan: Blood pressure slightly elevated today in office. Patient is somewhat distraught that she currently does not have her son due to trying to get better medically. Will continue her current dose of antihypertensive medication with goal blood pressure to be below 140/90 (4) Hyperlipidemia: Code(s): E78.5 - Hyperlipidemia, unspecified Qualifiers: Hyperlipidemia type: mixed hyperlipidemia Qualified Code(s): E78.2 - Mixed hyperlipidemia Plan: Most recent lipid panel showing elevated LDL, patient has restarted statin therapy and will recheck her lipid panel in 3 months. . Goal LDL to remain below 100 (5) Obese: Code(s): E66.9 - Obesity, unspecified Qualifiers: Body mass index: BMI 50.0-59.9 Obesity classification: adult class 3 (BMI >= 40) Obesity type: due to excess calories Serious obesity comorbidity presence: with serious comorbidity Qualified Code(s): E66.01 - Morbid (severe) obesity due to excess calories; Z68.43 - Body mass index [BMI] 50.0-59.9, adult Plan: Patient does understand her BMI remains above 40 will continue working on being more physically active and adapting to better eating habits to reduce her weight. (6) Opiate dependence: Code(s): F11.20 - Opioid dependence, uncomplicated Qualifiers: Substance use status: in remission Qualified Code(s): F11.21 - Opioid dependence, in remission Plan: Has been started on Suboxone. Does see a Suboxone clinic in [facility]. She reports she would like to reduce her dose of Suboxone or even changed to an injectable form. Since starting Suboxone her abdominal pain has resolved. (7) MDD (major depressive disorder), recurrent episode, moderate: Code(s): F33.1 - Major depressive disorder, recurrent, moderate Plan: Patient's PHQ-9 score positive for depression which has been existing condition for her. She does have a counselor at the [facility] though would like a new counselor independent from the Suboxone clinic. (8) LUIS (generalized anxiety disorder): Code(s): F41.1 - Generalized anxiety disorder Plan: Patient's LUIS-7 score positive for anxiety which has been existing condition for her. Again would like a new mental health therapist aside from her Suboxone clinic. (9) Tinea pedis of both feet: Code(s): B35.3 - Tinea pedis Orders: Orders Comprehensive [place]. Panel Fast 11/20/23 E11.9 - Type 2 diabetes mellitus without complications Phosphorus 11/20/23 E83.39 - Other disorders of phosphorus metabolism Lipid Panel 11/20/23 E78.2 - Mixed hyperlipidemia Referrals Counseling Referral F33.1 - Major depressive disorder, recurrent, moderate Ophthalmology Referral E11.9 - Type 2 diabetes mellitus without complications Podiatry Referral E11.9 - Type 2 diabetes mellitus without complications Medications: New clotrimazole 1% 1 appl topical BID 30 days 45 grams 1RF B35.3 - Tinea pedis Changed From insulin glargine (Lantus Solostar U-100 Insulin) 30 units (0.3 mL) subcut DAILY 30 days 15 mL 6RF E11.9 - Type 2 diabetes mellitus without complications To insulin glargine (Lantus Solostar U-100 Insulin) 40 units (0.4 mL) subcut DAILY 30 days 12 mL 6RF E11.9 - Type 2 diabetes mellitus without complications Coding Level of Care Code Est Pt Level 4 (56617) Diagnoses Type 2 diabetes mellitus without complication, without long-term current use of insulin E11.9 Diabetes mellitus complication status: without complication Diabetes mellitus it coordinator insulin use: without long-term use Diabetes mellitus type: type 2 Chronic abdominal pain R10.9; G89.29 Primary hypertension I10 Hypertension type: primary hypertension Mixed hyperlipidemia E78.2 Hyperlipidemia type: mixed hyperlipidemia Class 3 severe obesity due to excess calories with serious comorbidity and body mass index (BMI) of 50.0 to 59.9 in adult E66.01; Z68.43 Body mass index: BMI 50.0-59.9 Obesity classification: adult class 3 (BMI >= 40) Obesity type: due to excess calories Serious obesity comorbidity presence: with serious comorbidity Opioid dependence in remission F11.21 Substance use status: in remission MDD (major depressive disorder), recurrent episode, moderate F33.1 LUSI (generalized anxiety disorder) F41.1 Tinea pedis of both feet B35.3 Additional Codes LUIS-7 Assessment Billing - LUIS-7 Assessment Tool: LUIS-7 Assessment [id number] ([id number])
== END 2023-11-20 10:36 | disposition home or self-care (01) ==
PROVIDERS: PCP Physician Assistant; Visit Provider Physician Assistant
DX: E11.9 Type 2 diabetes mellitus without complications (principal); E66.01 Morbid (severe) obesity due to excess calories; Z68.43 Body mass index [BMI] 50.0-59.9, adult; F11.21 Opioid dependence, in remission; F33.1 Major depressive disorder, recurrent, moderate; R10.9 Unspecified abdominal pain; G89.29 Other chronic pain; I10 Essential (primary) hypertension; E78.2 Mixed hyperlipidemia; F41.1 Generalized anxiety disorder; B35.3 Tinea pedis
CPT/HCPCS: 99214

== ENCOUNTER 2023-12-04 23:36 | Emergency (ER) | payer OTHER, SELFPAY ==
[2023-12-05 00:24] VITALS: BP 166/85; PULSE 85; RESP 18; TEMP 37; O2SAT 98; BMI 48.3
[2023-12-05 00:42] LABS: Basophils Absolute Auto 0.1 X10*3/uL (0.0-0.2); Basophils Percent Auto 0.7 % (0-2); Eosinophils Absolute Auto 0.3 X10*3/uL (0.0-0.4); Eosinophils Percent Auto 3.2 % (0-4); Hematocrit 33.8 % (37.0-47.0); Hemoglobin 10.8 g/dl (12.0-16.0); Imm Gran Abs Auto 0.02 X10*3/uL (0.00-0.03); Imm Gran Pct Auto 0.2 % (0.0-0.4); Lymphocytes Absolute Auto 2.9 X10*3/uL (1.2-4.9); MANUAL DIFF FLAG NO; Mean Corpuscular Volume 78.2 fL (80.0-98.0); Mean Platelet Volume 10.4 fL (9.4-12.3); Monocytes Absolute Auto 0.8 X10*3/uL (0.1-1.2); Monocytes Percent Auto 8.1 % (2-11); Neutrophils Absolute Auto 5.3 x10*3/uL (2.0-8.3); Neutrophils Percent Auto 56.8 % (45-73); Platelet Count 298 X10*3/uL (160-400); Red Blood Count 4.32 X10*6/uL (4.20-5.50); Red Cell Distribution Width 16.5 % (11.0-16.0); White Blood Count 9.4 X10*3/uL (4.8-10.8)
[2023-12-05 01:02] LABS: Alanine Aminotransferase 36 U/L (0-31); Albumin Level 3.7 g/dL (3.5-5.0); Alkaline Phosphatase 61 U/L (39-117); Anion Gap 10 (12-20); Aspartate Amino Transferase 25 U/L (5-31); Bilirubin Total 0.3 mg/dL (0.0-1.0); Blood Urea Nitrogen 11 mg/dL (9-16); Calcium 9.4 mg/dL (8.4-10.2); Carbon Dioxide 27 mmol/L (22-29); Chloride 107 mmol/L (96-108); Creatinine Clr Calc Pharmacy 125.3; Estimated Glomerular Filt Rate > 60; Glucose Random 183 mg/dL (60-115); HCG Quantitative < 2 mIU/mL; Potassium 3.8 mmol/L (3.3-5.1); Sodium 140 mmol/L (135-145); Total Protein 6.9 g/dL (6.5-8.0)
[2023-12-05 04:14] VITALS: BP 161/75; PULSE 82; RESP 20; TEMP 37; O2SAT 99
--- NOTE | 2023-12-05 06:22 | PC.NURSE ---
PT not in room - unable to locate. appears to have eloped the ED>
== END 2023-12-05 06:23 | disposition left against medical advice (07) ==
PROVIDERS: Emergency Provider Emergency Medicine; PCP Physician Assistant
DX: M79.642 Pain in left hand (principal); M79.641 Pain in right hand
CPT/HCPCS: 36415; 80053; 84702; 85025; 99281; 99283

== ENCOUNTER 2023-12-18 14:50 | Outpatient (AMB) | payer OTHER, SELFPAY ==
[2023-12-18 15:19] VITALS: BP 118/78; PULSE 89; O2SAT 98; BMI 48.0
--- NOTE | 2023-12-18 15:19 | A.OFFPC_ITS ---
Vital Signs 12/18/23 15:19 Height 5 ft 1.5 in Weight 258 lb 6 oz BMI 48.0 BP 118/78 Blood Pressure Location Lt brachial Position Sitting Pulse 89 Pulse Source Pulse Oximeter Pulse Oximetry (%) 98 Oxygen Delivery Method Room Air Intake Visit Reasons: Severe pain Intake Note: Patient is here presenting with pain and numbness in the hands, radiating to both elbows, and extending to the legs and lower extremities up to the knees for the past two weeks. They are here to request a referral for nerve conduction studies. Action Installer Required: No Accompanied by: Son Allergies ibuprofen [IBUPROFEN] Allergy (Unknown, Verified 12/18/23 15:26) SWELLING, face swelling seafood Allergy (Unknown, Verified 12/18/23 15:) Anaphylaxis dulaglutide [From Trulicity] Adverse Reaction (Intermediate, Verified 12/18/23 15:) GI upset Tobacco use date assessed: 11/20/23 Dental Screening Dental Screen Date: 12/18/23 Did you have a dental visit in the last 12 months?: No Did you have a dental problem in the last 6 months where you did not have access to dental care?: Yes Was dental information given to patient?: Yes HPI Severe pain HPI Details Patient is a 43-year-old female here today for problem visit. Eunice ent's past medical history significant diabetes, depression, anxiety, morbid obesity, opiate dependency. Reports over the last 2 weeks having bilateral hand and wrist numbness. She has been using [id number] medication without any significant relief. She has not used any wrist splints. She also does report having some mild bilateral feet numbness as well. She attributes this to possibly her diabetes or heel spurs in her feet. [facility] Medical History Marijuana dependence Hypertension Hyperlipidemia Diabetes mellitus Morbid obesity Breast calcification, left GERD (gastroesophageal reflux disease) Surgical History History of esophagogastroduodenoscopy (EGD) Hx of colonoscopy History of cholecystectomy Family History Father Mental health disorder Mother Drug abuse Emphysema lung COPD (chronic obstructive pulmonary disease) Heart disease Mental health disorder Substance use disorder Sister Thyroid cancer Maternal Grandfather Colon cancer Maternal Grandmother Colon cancer Social History Housing: Apartment Alcohol intake: never Patient Tobacco Use Status: Never used Tobacco e-Cigarette/Vaping Use: Never Used Second Hand Smoke Exposure: No Substance Use Type: Marijuana service: No Current occupational status: employed 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 Nate Vences, Rosa Velez, Buddy Jensen and colleagues, with an educational ale from [employer]. Review of Systems Const Denies headache(s) Eyes Denies loss of vision ENT Denies vertigo, Denies dizziness, Denies headache(s) and Denies sore throat Card Denies chest pain, Denies leg edema and Denies lightheadedness Resp Denies cough, Denies hemoptysis and Denies wheezing GI Denies abdominal pain, Denies melena, Denies constipation, Denies diarrhea and Denies vomiting Denies urinary frequency, Denies dysuria and Denies urinary urgency Musc Denies arthralgias, Denies joint swelling, Denies numbness and Denies tingling Neuro Denies Abnormal speech present, Denies behavioral changes, Denies vertigo, Denies dizziness, Denies headache(s), Denies loss of vision, Denies memory loss, Denies numbness and Denies tingling Psych Denies anxiety, Denies behavioral changes, Denies depression, Denies memory loss and Denies panic attacks Gen/Lymph Denies easy bleeding and Denies easy bruising Aller/Immun Denies wheezing Physical exam (Primary Care) Vital Signs: Last Vital Signs Pulse 89 12/18/23 15:19 BP 118/78 12/18/23 15:19 Pulse Ox 98 12/18/23 15:19 Oxygen Delivery Method Room Air 12/18/23 15:19 BMI result Body Mass Index 48.0 Tobacco/Smoking Status: Tobacco use Status Tobacco use date assessed 11/20/23 12/18/23 15:19 Patient Tobacco Use Status Never used Tobacco 12/18/23 15:19 e-Cigarette/Vaping Use Never Used 12/18/23 15:19 Thrive Assessment: Date of Thrive Assessment Date Thrive assessed 11/20/23 12/18/23 15:19 Const General: healthy appearing, no acute distress, alert and awake Nutritional Appearance: well nourished Orientation/consciousness: oriented to person, oriented to place and oriented to time HENMT Ears: TM's normal bilaterally General nose exam: Normal nasal mucous membranes and turbinates present Eyes Conjunctivae: conjunctivae normal Sclerae: sclerae normal Pupils: Equal, round and reactive pupils present Neck Neck: Yes no lymphadenopathy and Yes no JVD Thyroid: Thyroid normal Carotids: no bruits Resp Effort & Inspection: normal respiratory effort and not tachypneic Auscultation: no crackles, no rales, no rhonchi and no wheezes Cardio Rate: regular rate Rhythm: regular rhythm Heart sounds: no murmurs and normal S1 and S2 GI Palpation (GI): Soft to palpation, nontender, no hepatomegaly and no splenomegaly Auscultation: normal bowel sounds Skin General skin exam: no rashes or lesions noted and dry skin Neuro General: oriented to person, oriented to place and oriented to time Cranial nerves: Yes Equal, round and reactive pupils present Speech: No Abnormal speech present Gait exam (Neuro): Normal gait present Motor exam (neuro): no tremor noted Extrem Other: + Warren's test on right wrist Negative prayers, negative Phalen's test on right wrist Right upper extremity: full ROM Left upper extremity: full ROM Right lower extremity: full ROM; no edema Left lower extremity: full ROM; no edema Psych Mental Status: mental status grossly normal Speech and movement: Normal speech and movement present Affect: normal affect Attitude: cooperative Thought process: Normal thought process present Assessment and Plan Assessment & Plan (1) Bilateral hand numbness: Code(s): R20.0 - Anesthesia of skin Plan: Reporting bilateral hand wrist numbness. Will send for EMG testing to evaluate for carpal tunnel syndrome. (2) Right wrist tendonitis: Code(s): M77.8 - Other enthesopathies, not elsewhere classified Plan: Patient does have signs and symptoms consistent with a tendinitis in her wrist as well. Will supply patient with diclofenac 1% gel to use . Orders: Orders NE electromyogram (EMG) Today R20.0 - Anesthesia of skin Medications: New diclofenac sodium 1% apply to single elbow, wrist or hand; for hand includes palm/fingers/back of hand 2 grams topical QID 30 days 100 grams 1RF M77.8 - Other enthesopathies, not elsewhere classified gabapentin 600 mg PO BID 30 days 60 tabs 3RF R20.0 - Anesthesia of skin Discontinued gabapentin Discontinued Reason: Doctor's Order 400 mg PO BID 30 days 60 caps 2RF R10.2 - Pelvic and perineal pain Coding Level of Care Code Est Pt Level 3 (87672) Diagnoses Bilateral hand numbness R20.0 Right wrist tendonitis M77.8
== END 2023-12-18 15:54 | disposition home or self-care (01) ==
PROVIDERS: PCP Physician Assistant; Visit Provider Physician Assistant
DX: R20.0 Anesthesia of skin (principal); M77.8 Other enthesopathies, not elsewhere classified
CPT/HCPCS: 99213

== ENCOUNTER 2023-12-22 09:12 | Outpatient (REF) | payer OTHER, SELFPAY | END 2023-12-22 09:13 | disposition home or self-care (01) | LOC: HO.MAMMO 09:12 | PROVIDERS: PCP Physician Assistant; Visit Provider Obstetrics & Gynecology | DX: Z12.31 Encounter for screening mammogram for malignant neoplasm of breast (principal) | CPT/HCPCS: 77063; 77067 ==

== ENCOUNTER → 2023-12-22 09:15 | Outpatient (BNV) | payer OTHER, SELFPAY | PROVIDERS: PCP Physician Assistant; Visit Provider Radiology Diagnostic Radiology | DX: Z12.31 Encounter for screening mammogram for malignant neoplasm of breast (principal) | CPT/HCPCS: 77063; 77067 ==

== ENCOUNTER 2023-12-26 09:46 | Outpatient (REF) | payer OTHER, SELFPAY | END 2023-12-26 09:47 | disposition home or self-care (01) | LOC: HO.LNP 09:46 | PROVIDERS: PCP Physician Assistant; Visit Provider Obstetrics & Gynecology | DX: Z32.02 Encounter for pregnancy test, result negative (principal); N93.9 Abnormal uterine and vaginal bleeding, unspecified | CPT/HCPCS: 58100; 81025; 88305 ==

== ENCOUNTER 2023-12-26 09:46 | Outpatient (AMB) | payer OTHER, SELFPAY ==
[2023-12-26 09:59] VITALS: BP 124/80; BMI 48.0
--- NOTE | 2023-12-26 09:59 | A.OFFVIS_ITS ---
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 Information Interpreted: non-clinical & clinical Education Assistant: Education Assistant Present (April) Allergies ibuprofen [IBUPROFEN] Allergy (Unknown, Verified 12/26/23 10:09) SWELLING, face swelling seafood Allergy (Unknown, Verified 12/26/23 10:09) Anaphylaxis dulaglutide [From Trulicity] Adverse Reaction (Intermediate, Verified 12/26/23 10:09) GI upset Post menopausal: No Patient : No HPI Comments Details: Presenting for EMB REPLACED BY [facility] Medical History Marijuana dependence Hypertension Hyperlipidemia Diabetes mellitus Morbid obesity Breast calcification, left GERD (gastroesophageal reflux disease) Surgical History History of esophagogastroduodenoscopy (EGD) Hx of colonoscopy History of cholecystectomy Family History Father Mental health disorder Mother Drug abuse Emphysema lung COPD (chronic obstructive pulmonary disease) Heart disease Mental health disorder Substance use disorder Sister Thyroid cancer Maternal Grandfather Colon cancer Maternal Grandmother Colon cancer Social History Housing: Apartment Alcohol intake: never Patient Tobacco Use Status: Never used Tobacco e-Cigarette/Vaping Use: Never Used Second Hand Smoke Exposure: No Substance Use Type: Marijuana Patient : No service: No Current occupational status: employed 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 Current occupational exposures/hazards: No Cognitive needs: No Hearing needs: No Vision needs: Yes Female Reproductive History Menstrual Age of Menarche: 13 control method: none Date of last pap smear: 10/31/23 (negative) Physical Exam Vital Signs: Last Vital Signs BP 124/80 12/26/23 09:59 BMI result Body Mass Index 48.0 Office Procedures Endometrial Biopsy Details: The patient was counseled regarding the indication and benefits of endometrial sampling to rule out endometrial pathology including not limited to endometrial hyperplasia or endometrial cancer and others; The alternatives (Either do nothing vs. hysteroscopy D&C) & the risks were discussed with the patient including but not limited: pain, uterine perforation, bleeding, infection, possible injury to bladder, bowel, ureter, possible need for blood transfusion with all its possible risks. The patient verbalized understanding all questions answered and signed consent. Urine test done in the office was negative The patient was placed into the dorsal lithotomy position; a speculum was inserted in the vagina. Using aseptic technique for the procedure, the cervix was cleansed with Betadine. The anterior lip of the cervix was grasped with a single tooth tenaculum. The uterus was sounded to 7 cm with a 4 mm Pipelle was used. Tissues samples were obtained and placed in formalin, in a patient labeled container and sent to the pathology department. At the end of the procedure, there was minimal bleeding noted The patient tolerated the procedure well and was discharged in good condition with the following instructions: Nothing in the vagina until the bleeding stops. No sex until the bleeding stops, to call if any of the following occurs: fever (>100.4), flu-like symptoms, abdominal pain, heavy bleeding, four smelling vaginal discharge. The patient was instructed to schedule a Follow up appointment in 2 weeks to discuss pathology results of the biopsy and treatment options. This note was generated with a voice recognition program. Some errors may have been overlooked during the review of this note. Sometimes these errors may affect the content or meaning of a given sentence. [id number] Biopsy Results AMB Test Urine AMB Test Urine Negative Last Edit by DAKSHA Mercado on 12/26/23 10:11 Results Reviewed Results Reviewed: Laboratory Last Values [facility]st Clinic Negative 12/26/23 10:11 Assessment & Plan Assessment & Plan (1) Abnormal uterine bleeding: Code(s): N93.9 - Abnormal uterine and vaginal bleeding, unspecified Category: Medical Plan: EMB done, see procedure note Orders: Orders AMB Endometrial Biopsy Today N93.9 - Abnormal uterine and vaginal bleeding, unspecified AMB HCG Urine Test Today Z32.02 - Encounter for test, result negative
== END 2023-12-26 10:51 | disposition home or self-care (01) ==
LOC: HO.HWS 09:46
PROVIDERS: PCP Physician Assistant; Visit Provider Obstetrics & Gynecology
DX: N93.9 Abnormal uterine and vaginal bleeding, unspecified (principal); Z32.02 Encounter for pregnancy test, result negative
CPT/HCPCS: 58100

== ENCOUNTER 2024-01-02 09:13 | Outpatient (REF) | payer OTHER, SELFPAY ==
--- NOTE | 2024-01-02 09:16 | EMG_ITS ---
Bilateral median and ulnar motor and sensory studies were performed. Bilateral radial sensory studies were performed and paraspinal muscles were tested with a needle. IMPRESSION: 1. Moderately severe bilateral median neuropathy across carpal tunnel. 2. [id number] bilateral ulnar neuropathy across cubital tunnel. MD SYLVIA Mitchell/DORYS / [phone]
== END 2024-01-02 09:14 | disposition home or self-care (01) ==
LOC: HO.NEURO 09:13
PROVIDERS: PCP Physician Assistant; Visit Provider Physician Assistant
DX: R20.0 Anesthesia of skin (principal)
CPT/HCPCS: 95886; 95911

== ENCOUNTER 2024-01-09 14:57 | Outpatient (AMB) | payer OTHER, SELFPAY ==
[2024-01-09 15:01] VITALS: BP 120/82; BMI 48.0
--- NOTE | 2024-01-09 15:01 | A.OFFVIS_ITS ---
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 The patient has no complaints, no vaginal bleeding, no feverishness chills or abdominal pain. Endometrial biopsy pathology showed the following: Endometrium, biopsy: Benign proliferative endometrium with focal breakdown; no atypia or carcinoma. Comment: Some fragments may be derived from benign polyps. [facility] Medical History Marijuana dependence Hypertension Hyperlipidemia Diabetes mellitus Morbid obesity Breast calcification, left GERD (gastroesophageal reflux disease) Surgical History History of esophagogastroduodenoscopy (EGD) Hx of colonoscopy History of cholecystectomy Family History Father Mental health disorder Mother Drug abuse Emphysema lung COPD (chronic obstructive pulmonary disease) Heart disease Mental health disorder Substance use disorder Sister Thyroid cancer Maternal Grandfather Colon cancer Maternal Grandmother Colon cancer Social History Housing: Apartment Alcohol intake: never Patient Tobacco Use Status: Never used Tobacco e-Cigarette/Vaping Use: Never Used Second Hand Smoke Exposure: No Substance Use Type: Marijuana service: No Current occupational status: employed 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 Current occupational exposures/hazards: No Cognitive needs: No Hearing needs: No Vision needs: Yes Female Reproductive History Menstrual Age of Menarche: 13 Date of last menstrual period: 07/02/20 control method: none Total pregnancies: 2 Full term: 2 Date of last pap smear: 10/31/23 (negative) Review of Systems Card Reports as per HPI and Reports no additional complaints Resp Reports as per HPI and Reports no additional complaints GI Reports as per HPI and Reports no additional complaints Reports as per HPI Physical Exam Vital Signs: Last Vital Signs BP 120/82 01/09/24 15:01 BMI result Body Mass Index 48.0 Const General: cooperative, healthy appearing and comfortable Resp Effort & Inspection: normal respiratory effort Auscultation: clear to auscultation bilaterally Percussion: percussion normal Cardio Palpation: normal PMI Rate: regular rate Rhythm: regular rhythm Heart sounds: no murmurs and no rubs Peripheral pulses: Peripheral pulses 2+ throughout GI Inspection: Yes normal to inspection Palpation (GI): Soft to palpation, nontender, no guarding, not rigid and No hepatosplenomegaly present Percussion: Yes normal to percussion Auscultation: normal bowel sounds Rectal Exam - Female: deferred Assessment & Plan Assessment & Plan (1) Abnormal uterine bleeding: Comment: Endometrial polyp on EMB pathology Code(s): N93.9 - Abnormal uterine and vaginal bleeding, unspecified Category: Medical Plan: Discussed with the patient the results the EMB pathology showing fragments of benign polyp, recommended hysteroscopy D&C possible polypectomy/myomectomy. Discussed with the patient the procedure , all benefits and risks including but not limited to inability to complete the procedure , insufficient endometrial tissue for a complete evaluation of the endometrial cavity , bleeding, infection, possible need for blood transfusion with all its risk ( HIV,syphilis, Hepatitis, anaphylaxis shock, others..), injury to bladder, rectum, possible need for laparoscopy/laparotomy or hysterectomy. The patient verbalized understanding and signed the consent. Instructions given the patient to stay NPO after midnight the day prior to the procedure and n to take only the specific medication(s) discussed the morning of the surgical procedure and to schedule a 2 week postoperative appointment Coding Level of Care Code Est Pt Level 3 (60647) Diagnoses Abnormal uterine bleeding N93.9
== END 2024-01-09 15:49 | disposition home or self-care (01) ==
PROVIDERS: PCP Physician Assistant; Visit Provider Obstetrics & Gynecology
DX: N93.9 Abnormal uterine and vaginal bleeding, unspecified (principal)
CPT/HCPCS: 99213

== ENCOUNTER → 2024-01-09 14:57 | Outpatient (BNVA) | payer OTHER, SELFPAY | PROVIDERS: PCP Physician Assistant; Visit Provider Obstetrics & Gynecology | DX: N93.9 Abnormal uterine and vaginal bleeding, unspecified (principal); Z98.890 Other specified postprocedural states | CPT/HCPCS: 99212 ==

== ENCOUNTER 2024-01-22 09:25 | Day surgery (SDC) | payer OTHER, SELFPAY ==
[2024-01-18 10:31] VITALS: BMI 48.0
--- NOTE | 2024-01-18 15:47 | P.CONAN_ITS ---
Documented by User: Adriana Crawford NP 01/18/24 15:48 HPI - Anesthesia Eval Consult details Narrative: 43yo F for D&C Hysteroscopy,possible myomectomy,possible polypectomy BMI 48 Suboxone daily PMFSH Active Problems Active Problems: All Active Problems Carpal tunnel syndrome on both sides (Acute) Right wrist tendonitis (Acute) Bilateral hand numbness (Acute) Tinea pedis of both feet (Acute) LUIS (generalized anxiety disorder) (Acute) MDD (major depressive disorder), recurrent episode, moderate (Acute) Opiate dependence (Acute) Myoma (Acute) Abnormal uterine bleeding (Acute) Uterine fibroid (Acute) Pelvic pain (Acute) Functional dyspepsia (Acute) Truncal muscle weakness (Acute) Hypercalcemia (Acute) Chronic painful diabetic neuropathy (Acute) Chronic abdominal pain (Acute) Hypertension (Acute) Hyperlipidemia (Acute) Diabetes mellitus (Acute) Morbid obesity (Acute) Breast calcification, left (Acute) Hypophosphatemia (Acute) Breast cancer screening (Acute) Epigastric abdominal pain (Acute) IBS (irritable bowel syndrome) (Acute) Annual physical exam (Acute) HLD (hyperlipidemia) (Acute) Obese (Acute) HTN (hypertension) (Acute) Past Medical History Medical History Marijuana dependence Hypertension Hyperlipidemia Diabetes mellitus Morbid obesity Breast calcification, left GERD (gastroesophageal reflux disease) Family History Family History Father Mental health disorder Mother Drug abuse Emphysema lung COPD (chronic obstructive pulmonary disease) Heart disease Mental health disorder Substance use disorder Sister Thyroid cancer Maternal Grandfather Colon cancer Maternal Grandmother Colon cancer Surgical History Surgical History History of esophagogastroduodenoscopy (EGD) Hx of colonoscopy History of cholecystectomy Social History Social History Housing: Apartment Alcohol intake: never Patient Tobacco Use Status: Never used Tobacco e-Cigarette/Vaping Use: Never Used Second Hand Smoke Exposure: No Substance Use Type: Marijuana Advance Directives: No Advance Directives Information Provided: Yes service: No Current occupational status: employed 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 Current occupational exposures/hazards: No Cognitive needs: No Hearing needs: No Vision needs: Yes Meds Allergies Allergy/AdvReac Type Severity Reaction Status Date / Time ibuprofen [IBUPROFEN] Allergy Unknown SWELLING, Verified 01/09/24 15:02 face swelling seafood Allergy Unknown Anaphylaxis Verified 01/09/24 15:02 dulaglutide [From Trulicity] AdvReac Intermediate GI upset Verified 01/09/24 15:02 Home Medications ?Medication ?Instructions ?Recorded ?Confirmed ?Last Taken ?Type buprenorphine 4 mg-naloxone 1 mg 8 film sublingual BEDTIME 10/30/23 11/20/23 Unknown History sublingual film (Suboxone) insulin glargine-yfgn 100 unit/mL unit subcut 12/18/23 Unknown History (3 mL) subcutaneous pen insulin glargine 100 unit/mL (3 48 unit subcut DAILY 01/22/24 01/22/24 Unknown History mL) subcutaneous pen (Lantus Solostar U-100 Insulin) Exam Height,Weight and Vital Signs: Height 5 ft 1.5 in Weight 117.027 kg Pertinent Lab Results Pertinent Lab Results: Laboratory Tests 12/05/23 00:36 WBC 9.4 Hgb 10.8 L Hct 33.8 L Plt Count 298 Sodium 140 Potassium 3.8 Chloride 107 Carbon Dioxide 27 BUN 11 Creatinine 0.70 Assessment and Plan Assessment Anesthesia Assessment: Chart Reviewed Documented by User: Essence Rivero MD 01/22/24 14:12 [facility] Active Problems Active Problems: All Active Problems Carpal tunnel syndrome on both sides (Acute) Right wrist tendonitis (Acute) Bilateral hand numbness (Acute) Tinea pedis of both feet (Acute) LUIS (generalized anxiety disorder) (Acute) MDD (major depressive disorder), recurrent episode, moderate (Acute) Opiate dependence (Acute) Myoma (Acute) Abnormal uterine bleeding (Acute) Uterine fibroid (Acute) Pelvic pain (Acute) Functional dyspepsia (Acute) Truncal muscle weakness (Acute) Hypercalcemia (Acute) Chronic painful diabetic neuropathy (Acute) Chronic abdominal pain (Acute) Hypertension (Acute) Hyperlipidemia (Acute) Diabetes mellitus (Acute) Morbid obesity (Acute) Breast calcification, left (Acute) Hypophosphatemia (Acute) Breast cancer screening (Acute) Epigastric abdominal pain (Acute) IBS (irritable bowel syndrome) (Acute) Annual physical exam (Acute) HLD (hyperlipidemia) (Acute) Obese (Acute) HTN (hypertension) (Acute) Smoker ?ANTONIO but never tested Past Medical History Medical History Marijuana dependence Hypertension Hyperlipidemia Diabetes mellitus Morbid obesity Breast calcification, left GERD (gastroesophageal reflux disease) Family History Family History Father Mental health disorder Mother Drug abuse Emphysema lung COPD (chronic obstructive pulmonary disease) Heart disease Mental health disorder Substance use disorder Sister Thyroid cancer Maternal Grandfather Colon cancer Maternal Grandmother Colon cancer Surgical History Surgical History History of esophagogastroduodenoscopy (EGD) Hx of colonoscopy History of cholecystectomy Social History Social History Housing: Apartment Alcohol intake: never Patient Tobacco Use Status: Never used Tobacco e-Cigarette/Vaping Use: Never Used Second Hand Smoke Exposure: No Substance Use Type: Marijuana Advance Directives: No Advance Directives Information Provided: Yes service: No Current occupational status: employed 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 Current occupational exposures/hazards: No Cognitive needs: No Hearing needs: No Vision needs: Yes Meds Allergies Allergy/AdvReac Type Severity Reaction Status Date / Time ibuprofen [IBUPROFEN] Allergy Unknown SWELLING, Verified 01/09/24 15:02 face swelling seafood Allergy Unknown Anaphylaxis Verified 01/09/24 15:02 [facility] AdvReac Intermediate GI upset Verified 01/09/24 15:02 Home Medications ?Medication ?Instructions ?Recorded ?Confirmed ?Last Taken ?Type buprenorphine 4 mg-naloxone 1 mg 8 film sublingual BEDTIME 10/30/23 11/20/23 Unknown History sublingual film (Suboxone) insulin glargine-yfgn 100 unit/mL unit subcut 12/18/23 Unknown History (3 mL) subcutaneous pen insulin glargine 100 unit/mL (3 48 unit subcut DAILY 01/22/24 01/22/24 Unknown History mL) subcutaneous pen (Lantus Solostar U-100 Insulin) Exam Height,Weight and Vital Signs: Height 5 ft 1.5 in Weight 117.027 kg Vital Signs Temp Pulse Resp BP Pulse Ox O2 Del Method O2 Flow Rate 97.4 F 85 20 116/53 98 Room Air 01/22/24 09:45 01/22/24 09:45 01/22/24 09:45 01/22/24 09:45 01/22/24 09:45 01/22/24 09:45 01/22/24 09:45 Pertinent Lab Results Pertinent Lab Results: Laboratory Tests 12/05/23 00:36 WBC 9.4 Hgb 10.8 L Hct 33.8 L Plt Count 298 Sodium 140 Potassium 3.8 Chloride 107 Carbon Dioxide 27 BUN 11 Creatinine 0.70 Lab Results 01/22/24 01/22/24 Range/Units 09:46 10:13 POC Glucose 151 H (60-115) mg/dL Urine Test NEGATIVE (NEGATIVE) Airway Mallampati Class: III TM Dist: >3cm Neck ROM: Full Loose/Missing/Broken Teeth: Yes (Some missing teeth. Broken tooth top left back) Heart: RRR Lungs: CTAB. Dimi
[2024-01-22] VITALS (8 sets, daily range): BP systolic 144–164; BP diastolic 76–99; PULSE 68–103; RESP 16–20; TEMP 36.3; O2SAT 90–98
[2024-01-22 10:16] LABS: Glucose, Whole Blood 151 mg/dL (60-115)
[2024-01-22 10:21] LABS: UPreg QC Valid YES; Urine Pregnancy NEGATIVE (NEGATIVE)
[2024-01-22] MEDS: Lactated Ringers 1,000 ML 100 ML IVCONT (10:28)
--- NOTE | 2024-01-22 11:09 | MHC.SHP ---
Pre-Procedural Eval Section A - 24 Hr Update-Section A only Date of Service: 01/22/24 The patient is an INPATIENT: No Changes since office visit: No Cold of Flu in the past 2 weeks, No New Medical Problems, No Changes in Medication and No Patient answered all questions The patient has been examined within 24 hours of the surgical procedure. The History & Physical has been completed within 30 days and I have reviewed it.: Yes Section B - Complete if H&P > 30 days Chief Complaint: Abnormal uterine and vaginal bleeding, unspecified Allergies: Allergies Allergy/AdvReac Type Severity Reaction Status Date / Time ibuprofen [IBUPROFEN] Allergy Unknown SWELLING, Verified 01/09/24 15:02 face swelling seafood Allergy Unknown Anaphylaxis Verified 01/09/24 15:02 dulaglutide [From Trulicity] AdvReac Intermediate GI upset Verified 01/09/24 15:02 Plan Diagnosis/Plan: Unchanged I have reviewed the history and physical and performed a pertinent physical examination on my patient. No changes have occurred unless specified. Time Spent With Patient Time: Total time managing care of this patient today ____ minutes.
--- NOTE | 2024-01-22 11:50 | P.OP_ITS ---
Operative Note Operative Note Date of Service: 01/22/24 Narrative: Preop Diagnosis: Abnormal uterine bleeding, Endometrial polyp by EMB pathology Operation: Diagnostic Hysteroscopy, Dilataion & Curettage and polypectomy Post Op Diagnosis: Endometrial Polyp QBL: Minimal Anesthesia: GLMA Surgeon: Nestor Eason MD Machine Sign Writer: None Complication: None Pathology: Endometrial Scrapings, Endometrial polyp Procedure: The patient was put in the dorsal lithotomy position, scrubbed, and draped in the usual manner. A sterile speculum was inserted in the patient's vagina. The anterior lip of the cervix was grasped with a single tooth tenaculum. The cervix was dilated up to 5 mm, then the scope was inserted in the patient's uterus. Inspection revealed endometrial polyp. The Myosure Reach device was used; it was introduced through the operative channel and polypectomy done with no complications. The scope was then taken out from the uterine cavity, sharp curettings was carried on with minimal to moderate amount of tissues retrieved. At the end of the procedure, all instruments were taken out of the patient uterine and vaginal cavity. The single tooth tenaculum was removed and homeostasis was assured using pressure,. The patient tolerated the procedure well and was transferred to the PACU in a stable condition.
--- NOTE | 2024-01-22 11:50 | PM.OP ---
Brief Operative Note Date of Service: 01/22/24 Pre-op diagnosis: Abnormal uterine bleeding, endometrial polyp on EMB pathology Post-op diagnosis: same (Endometrial polyp) Procedure: Hysteroscopy D&C, Polypectomy Surgeon: Nestor Eason MD Anesthesia: GLMA Was an Supervisor Grading used for this Procedure?: No Estimated blood loss (mL): 0 Pathology: other (Endometrial Scrapping. Polyp) Condition: stable Disposition: PACU
== END 2024-01-22 14:56 | disposition home or self-care (01) ==
PROVIDERS: Nurse Practitioner; PCP Physician Assistant; Visit Provider Obstetrics & Gynecology
PROC: 0UDB8ZZ Extraction of Endometrium, Via Natural or Artificial Opening Endoscopic (ICD-10-PCS; CPT 58558; principal; 2024-01-22 11:00)
DX: N93.9 Abnormal uterine and vaginal bleeding, unspecified (principal); N84.0 Polyp of corpus uteri; N80.03 Adenomyosis of the uterus; R92.1 Mammographic calcification found on diagnostic imaging of breast; I10 Essential (primary) hypertension; E78.5 Hyperlipidemia, unspecified; E11.9 Type 2 diabetes mellitus without complications; K21.9 Gastro-esophageal reflux disease without esophagitis; E66.01 Morbid (severe) obesity due to excess calories; Z68.42 Body mass index [BMI] 45.0-49.9, adult; Z79.4 Long term (current) use of insulin; Z79.899 Other long term (current) drug therapy; F11.20 Opioid dependence, uncomplicated; Z88.6 Allergy status to analgesic agent; Z88.8 Allergy status to other drugs, medicaments and biological substances; Z90.49 Acquired absence of other specified parts of digestive tract
CPT/HCPCS: 58558; 81025; 82947; 88305; J0131; J1100; J1596; J2405; J2704; J3010

== ENCOUNTER → 2024-01-22 09:25 | Outpatient (BNV) | payer OTHER, SELFPAY | PROVIDERS: PCP Physician Assistant; Visit Provider Obstetrics & Gynecology | DX: N84.0 Polyp of corpus uteri (principal); N93.9 Abnormal uterine and vaginal bleeding, unspecified | CPT/HCPCS: 58558 ==

== ENCOUNTER 2024-02-07 11:13 | Outpatient (AMB) | payer OTHER, SELFPAY ==
--- NOTE | 2024-02-07 11:24 | A.OFFVIS_ITS ---
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 EMG done. Patient reports pain, numbness and tingling in her whole hand and all her fingers since about November of this year. She was seen by her PCP who ordered an EMG and referred to orthopedics. She will have swelling and frequently drops items. Denies any injury. She has purchased OTC braces however she finds these do not help. 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 She states she has pain as well as constant numbness and tingling in her whole hands and fingers since November 2022. Her right hand is worse than her left. She was seen by her PCP who ordered and EMG and referred her to our office. She also experiences swelling and weakness with gripping and grasping activities and frequently drops items. She has not had any injury in the past. She has purchased OTC braces which did not provide her any relief. ? She has a history of diabetes. Her sugar levels are currently not well controlled. 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 FOR[facility]LY [facility], LATER [facility] Medical History (Updated 02/07/24 @ 13:01 by Deangelo Klein PA-C) Marijuana dependence Hypertension Hyperlipidemia Diabetes mellitus Morbid obesity Breast calcification, left GERD (gastroesophageal reflux disease) Surgical History (Updated 02/07/24 @ 11:35 by DAKSHA Sweet) Hx of dilation and curettage History of esophagogastroduodenoscopy (EGD) Hx of colonoscopy History of cholecystectomy Family History Father Mental health disorder Mother Drug abuse Emphysema lung COPD (chronic obstructive pulmonary disease) Heart disease Mental health disorder Substance use disorder Sister Thyroid cancer Maternal Grandfather Colon cancer Maternal Grandmother Colon cancer Social History (Updated 02/07/24 @ 11:36 by Aida Hickman [facility]) Housing: Apartment Alcohol intake: never Patient Tobacco Use Status: Current someday Tobacco user e-Cigarette/Vaping Use: Never Used Second Hand Smoke Exposure: No Substance Use Type: Marijuana service: No Current occupational status: employed 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, 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 Female Reproductive History Menstrual Age of Menarche: 13 Review of Systems Const All systems reviewed & are unremarkable except as noted in HPI and below Physical Exam Vital Signs: BMI result Body Mass Index 53.5 Const General: cooperative, healthy appearing, comfortable, no acute distress, well developed and alert Orientation/consciousness: patient oriented x3 HEENT Head: Yes normal to inspection, Yes normocephalic and Yes atraumatic Eyes General: appearance normal, both eyes and all related structures Resp Effort & Inspection: normal respiratory effort and able to speak in complete sentences Cardio Rate: regular rate Peripheral pulses: Peripheral pulses 2+ throughout GI Palpation (GI): Soft to palpation Skin Lesions: no lesions Rashes: no rashes Neuro General: patient oriented x3 Extrem Other: Bilateral wrist: Normal to inspection.? Tenderness over the carpal canal.? Numbness and tingling over the median nerve distribution of the right hand.? Able to make a full fist and fully extend all fingers.? Positive Tinel's. Bilatera: Normal to inspection.? Mild Tenderness over the medial aspect of the elbow and Positive Tinel?s along the cubital tunnel.? He has good ROM of the elbow, no pain with supination or pronation. Numbness and tingling over the ulnar nerve distribution of the left hand.? Results Reviewed Results Reviewed: IMPRESSION: 1. Moderately severe bilateral median neuropathy across carpal tunnel. 2. [id number] bilateral ulnar neuropathy across cubital tunnel. Assessment & Plan Assessment & Plan (1) Carpal tunnel syndrome on both sides: Code(s): G56.03 - Carpal tunnel syndrome, bilateral upper limbs Category: Medical (2) Cubital tunnel syndrome, bilateral: Code(s): G56.23 - Lesion of ulnar nerve, bilateral upper limbs Category: Medical Plan We discussed options which include conservative vs operative treatment. Since the patient has been symptomatic for several months and it is impacting their daily life, the decision was made to undergo right carpal tunnel release. We discussed risk, benefits and alternatives. Risk including but not limited to infection, weakness, stiffness, ongoing numbness or tingling. The patient does understand all this and would like to proceed with right carpal tunnel release and cubital tunnel release with Dr. Rai. They will be booked accordingly. Patient Instructions: Scribed for Deangelo Klein PA-C, by Alfonzo Fuentes medical staff services coordinator, on 02/07/2024 at 11:15 AM EST.? I, Deangelo Klein PA-C, have personally reviewed and agree with t he information entered by the scribe. Coding Level of Care Code New Pt Level 4 (77320) Diagnoses Carpal tunnel syndrome on both sides G56.03 Cubital tunnel syndrome, bilateral G56.23
[2024-02-07 11:38] VITALS: BMI 53.5
== END 2024-02-07 12:00 | disposition home or self-care (01) ==
PROVIDERS: PCP Physician Assistant; Visit Provider Physician Assistant
DX: G56.03 Carpal tunnel syndrome, bilateral upper limbs (principal); G56.23 Lesion of ulnar nerve, bilateral upper limbs
CPT/HCPCS: 99204

== ENCOUNTER → 2024-02-07 11:13 | Outpatient (BNVA) | payer OTHER, SELFPAY | PROVIDERS: PCP Physician Assistant; Visit Provider Physician Assistant | DX: G56.03 Carpal tunnel syndrome, bilateral upper limbs (principal); G56.23 Lesion of ulnar nerve, bilateral upper limbs | CPT/HCPCS: 99202 ==

== ENCOUNTER 2024-02-07 11:59 | Outpatient (REF) | payer OTHER, SELFPAY ==
[2024-02-07 13:57] LABS: Alanine Aminotransferase 23 U/L (0-31); Albumin Level 4.1 g/dL (3.5-5.0); Alkaline Phosphatase 69 U/L (39-117); Anion Gap 15 (12-20); Aspartate Amino Transferase 16 U/L (5-31); Bilirubin Total 0.3 mg/dL (0.0-1.0); Blood Urea Nitrogen 12 mg/dL (9-16); Calcium 9.9 mg/dL (8.4-10.2); Carbon Dioxide 25 mmol/L (22-29); Chloride 103 mmol/L (96-108); Cholesterol 107 mg/dL (<200); Estimated Glomerular Filt Rate > 60; Glucose Fasting 140 mg/dL (60-99); HDL Cholesterol 35 mg/dL (>40); LDL Cholesterol Calculated 55 mg/dL (<100); Phosphorus 4.2 mg/dL (2.7-4.5); Potassium 3.8 mmol/L (3.3-5.1); Sodium 139 mmol/L (135-145); Total Protein 7.4 g/dL (6.5-8.0); Triglycerides 88 mg/dL (<150)
== END 2024-02-07 12:00 | disposition home or self-care (01) ==
LOC: HO.LAB 11:59
PROVIDERS: PCP Physician Assistant; Visit Provider Physician Assistant
DX: E83.39 Other disorders of phosphorus metabolism (principal); E11.9 Type 2 diabetes mellitus without complications; E78.2 Mixed hyperlipidemia
CPT/HCPCS: 36415; 80053; 80061; 84100

== ENCOUNTER 2024-02-20 08:39 | Outpatient (AMB) | payer OTHER, SELFPAY ==
--- NOTE | 2024-02-20 08:46 | MHC.PC.OV ---
Vital Signs 02/20/24 08:47 Height 5 ft 1 in Weight 277 lb 2 oz BMI 52.4 BP 110/78 Blood Pressure Location Lt brachial Position Sitting Pulse 91 Pulse Source Pulse Oximeter Pulse Oximetry (%) 95 Oxygen Delivery Method Room Air Intake Visit Reasons: Follow-up type 2 diabetes Intake Note: Patient is here to follow up on DM. Strategies Analyst Required: No Federal Appellate Law Clerk: Not Required per policy Accompanied by: Self / Same As Patient Allergies ibuprofen [IBUPROFEN] Allergy (Unknown, Verified 02/20/24 09:05) SWELLING, face swelling seafood Allergy (Unknown, Verified 02/20/24 09:05) Anaphylaxis [facility] Adverse Reaction (Intermediate, Verified 02/20/24 09:05) GI upset Medication List - Last Reconciled 02/20/24 by Alden Flores PA-C alcohol swabs (Alcohol Prep Pads) 1 pad topical TID 90 days atorvastatin 40 mg PO DAILY 90 days blood pressure monitor (Blood Pressure Kit) As directed blood sugar diagnostic (FreeStyle Lite Strips) USE 1 STRIP DIRECTED 3 TIMES A DAY FOR 30 DAYS TESTING TWICE PER DAY blood-glucose meter,continuous (PaperGStyle Js 3 [place]) As directed blood-glucose sensor (FreeStyle Js 3 Sensor device) As directed buprenorphine-naloxone 4-1 mg (Suboxone) 8 film sublingual BEDTIME cholecalciferol (vitamin D3) 1,250 mcg PO QWEEK 8 weeks clotrimazole 1% 1 appl topical BID 30 days gabapentin 600 mg PO BID 30 days insulin aspart U-100 16 units (0.16 mL) subcut TID 30 days insulin glargine (Lantus Solostar U-100 Insulin) 48 units subcut DAILY insulin glargine-yfgn units subcut Lactobac. rhamnosus GG-inulin 10 billion cell -200 mg ([facility] [employer] ([place]) 1 cap PO DAILY lancets (FreeStyle Lancets) As directed losartan 50 mg PO DAILY 90 days omeprazole 40 mg PO DAILY 90 days pen needle, diabetic (BD Lis 2nd Gen Pen Needle) As directed safety needles (BD Eclipse) As directed Tobacco use date assessed: 02/20/24 Dental Screening Dental Screen Date: 12/18/23 HPI Follow-up type 2 diabetes HPI Details Patient is a 43-year-old female here today for f/u visit. ? Patient has a past medical history significant for morbid obesity, type 2 diabetes, hyperlipidemia, opiate dependency, hypertension. Was recently found to cubital tunnel syndrome and has followed up with Orthopedics. She is due for surgery though needs to have better glycemic control. She mentions having to have an A1c below 7.0 Concern--> she does report some daytime somnolence and does have risk factors for obstructive sleep apnea. She is willing to be evaluated for obstructive sleep apnea. ? .. Type 2 diabetes:? Type 2 diabetes has been uncontrolled, today's A1c at 9.4 from 6.7. Her long-acting and short-acting insulins have been changed to generic and feels they are not as effective. Does admit to some dietary indiscretion and has gained significant amount of weight since last visit. Patient continues on long-acting and short-acting insulin.? Blood sugars have been well managed at home. Last visit. PLAN: Will change her insulin to Lantus and Humalog without substitutions. Will add on Ozempic for glycemic control and weight reduction. ?. .. Hyperlipidemia: Most recent lipid panel showing slightly elevated LDL at 122. She has restarted statin therapy. Will recheck lipid panel before next office visit. Goal LDL to be below 100 .. Obesity:? Has lost a few lb since last office visit. Has been able to reduce her weight with dietary modifications.? She still understands her BMI is well over 30 will work on being more physically active and continue dietary modifications to help lose weight. . Hypertension:? Blood pressure controlled today in office.? Patient denies any chest discomfort, headaches, dizziness or shortness of breath on exertion. [facility] Medical History (Updated 02/20/24 @ 09:13 by Alden Flores PA-C) Marijuana dependence Hypertension Hyperlipidemia Diabetes mellitus Morbid obesity Breast calcification, left GERD (gastroesophageal reflux disease) Surgical History Hx of dilation and curettage History of esophagogastroduodenoscopy (EGD) Hx of colonoscopy History of cholecystectomy Family History Father Mental health disorder Mother Drug abuse Emphysema lung COPD (chronic obstructive pulmonary disease) Heart disease Mental health disorder Substance use disorder Sister Thyroid cancer Maternal Grandfather Colon cancer Maternal Grandmother Colon cancer Social History Housing: Apartment Alcohol intake: never Patient Tobacco Use Status: Current everyday Tobacco user Cigarette Packs Per Day: 0.25 Cigarettes Per Day: 3 e-Cigarette/Vaping Use: Never Used Second Hand Smoke Exposure: Yes Substance Use Type: Marijuana service: No Current occupational status: employed 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 Nate Vences, Rosa Velez, Buddy Jensen and colleagues, with an educational ale from [employer]. Review of Systems Const Denies headache(s) Eyes Denies loss of vision ENT Denies vertigo, Denies dizziness, Denies headache(s) and Denies sore throat Card Denies chest pain, Denies leg edema and Denies lightheadedness Resp Denies cough, Denies hemoptysis and Denies wheezing GI Denies abdominal pain, Denies melena, Denies constipation, Denies diarrhea and Denies vomiting Denies urinary frequency, Denies dysuria and Denies urinary urgency Musc Denies arthralgias, Denies joint swelling, Denies numbness and Denies tingling Neuro Denies Abnormal speech present, Denies behavioral changes, Denies vertigo, Denies dizziness, Denies headache(s), Denies loss of vision, Denies memory loss, Denies numbness and Denies tingling Psych Denies anxiety, Denies behavioral changes, Denies depression, Denies memory loss and Denies panic attacks Gen/Lymph Denies easy bleeding and Denies easy bruising Aller/Immun Denies wheezing Physical exam (Primary Care) Vital Signs: Last Vital Signs Pulse 91 02/20/24 08:47 BP 110/78 02/20/24 08:47 Pulse Ox 95 02/20/24 08:47 Oxygen Delivery Method Room Air 02/20/24 08:47 BMI result Body Mass Index 52.4 Tobacco/Smoking Status: Tobacco use Status Tobacco use date assessed 02/20/24 02/20/24 08:56 Patient Tobacco Use Status Current everyday Tobacco 02/20/24 08:56 e-Cigarette/Vaping Use Never Used 02/20/24 08:56 Thrive Assessment: Date of Thrive Assessment Date Thrive assessed 11/20/23 02/20/24 08:56 Const General: healthy appearing, no acute distress, alert and awake Nutritional Appearance: well nourished Orientation/consciousness: oriented to person, oriented to place and oriented to time HENMT Ears: TM's normal bilaterally General nose exam: Normal nasal mucous membranes and turbinates present Eyes Conjunctivae: conjunctivae normal Sclerae: sclerae normal Pupils: Equal, round and reactive pupils present Neck Neck: Yes no lymphadenopathy and Yes no JVD Thyroid: Thyroid normal Carotids: no bruits Resp Effort & Inspection: normal respiratory effort and not tachypneic Auscultation: no crackles, no rales, no rhonchi and no wheezes Cardio Rate: regular rate Rhythm: regular rhythm Heart sounds: no murmurs and normal S1 and S2 GI Palpation (GI): Soft to palpation, nontender, no hepatomegaly and no splenomegaly Auscultation: normal bowel sounds Skin General skin exam: no rashes or lesions noted and dry skin Neuro General: oriented to person, oriented to place and oriented to time Cranial nerves: Yes Equal, round and reactive pupils present Speech: No Abnormal speech present Gait exam (Neuro): Normal gait present Motor exam (neuro): no tremor noted Extrem Right upper extremity: full ROM Left upper extremity: full ROM Right lower extremity: full ROM; no edema Left lower extremity: full ROM; no edema Psych Mental Status: mental status grossly normal Speech and movement: Normal speech and movement present Affect: normal affect Attitude: cooperative Thought process: Normal thought process present Results AMB Hemoglobin A1c AMB Hemoglobin A1c 9.4 % Last Edit by DAKSHA Russell on 02/20/24 08:57 Results Reviewed Results Reviewed: Laboratory Last Values Hgb A1c (Clinic) 9.4 % (4.0-6.0) H 02/20/24 08:45 Assessment and Plan Assessment & Plan (1) Diabetes mellitus: Code(s): E11.9 - Type 2 diabetes mellitus without complications Qualifiers: Diabetes mellitus type: type 2 Diabetes mellitus termite inspector insulin use: without termite inspector use Diabetes mellitus complication status: without complication Qualified Code(s): E11.9 - Type 2 diabetes mellitus without complications Plan: Patient's diabetes suboptimally controlled with A1c above 9 she reports since changing to generic short-acting and long-acting insulins her sugars have been not as well controlled. She feels they are more ineffective. Will try to switch back to Lantus and Humalog with no substitutions. Will add on Ozempic for glycemic control and added benefit of weight loss. Goal A1c is to be below 7.0 (2) ANTONIO (obstructive sleep apnea): Code(s): G47.33 - Obstructive sleep apnea (adult) (pediatric) Plan: Patient has high-risk for obstructive sleep apnea. Does have daytime somnolence and medical risk factors. Will send for home sleep study to evaluate for obstructive sleep apnea. (3) Hypertension: Code(s): I10 - Essential (primary) hypertension Qualifiers: Hypertension type: primary hypertension Qualified Code(s): I10 - Essential (primary) hypertension Plan: Blood pressure acceptable today in office. Will continue her current dose of antihypertensive medication with goal blood pressure to remain below 140/90 . (4) Hyperlipidemia: Code(s): E78.5 - Hyperlipidemia, unspecified Qualifiers: Hyperlipidemia type: mixed hyperlipidemia Qualified Code(s): E78.2 - Mixed hyperlipidemia Plan: Patient's most recent lipid panel showing excellent control over total cholesterol and LDL. Will continue on current dose of cholesterol medication with goal LDL to remain below 100 (5) Obese: Code(s): E66.9 - Obesity, unspecified Qualifiers: Obesity type: due to excess calories Obesity classification: adult class 3 (BMI >= 40) Serious obesity comorbidity presence: with serious comorbidity Body mass index: BMI 50.0-59.9 Qualified Code(s): E66.01 - Morbid (severe) obesity due to excess calories; Z68.43 - Body mass index [BMI] 50.0-59.9, adult Plan: Patient does understand her BMI remains above 40 will continue working on being more physically active and adapting to better eating habits to reduce her weight. (6) Opiate dependence: Code(s): F11.20 - Opioid dependence, uncomplicated Qualifiers: Substance use status: in remission Qualified Code(s): F11.21 - Opioid dependence, in remission Plan: Has been started on Suboxone. Does see a Suboxone clinic in [facility]. She reports she would like to reduce her dose of Suboxone or even changed to an injectable form. Since starting Suboxone her abdominal pain has resolved. (7) Tinea pedis of both feet: Code(s): B35.3 - Tinea pedis (8) Cubital tunnel syndrome, bilateral: Code(s): G56.23 - Lesion of ulnar nerve, bilateral upper limbs Plan: Patient found to have cubital tunnel syndrome bilaterally. Now followed by Orthopedics whom want glycemic control before doing surgery. Will check back in 3 months with an A1c - goal A1c is to be below 7.0 Orders: Orders RT home sleep study Today G47.33 - Obstructive sleep apnea (adult) (pediatric) AMB Hemoglobin A1c Today E11.9 - Type 2 diabetes mellitus without complications Medications: New Humalog KwikPen Insulin (insulin lispro) per sliding scale, max 16 units 1 sliding scale dose subcut USEASDIRECTD 30 days 15 mL 1RF NS E11.9 - Type 2 diabetes mellitus without complications Lantus Solostar U-100 Insulin (insulin glargine) 48 units (0.48 mL) subcut QAM 30 days 15 mL 3RF NS E11.9 - Type 2 diabetes mellitus without complications semaglutide for 4 weeks 0.25 mg (0.187 mL) subcut QWEEK 4 weeks 1.5 mL 0RF E11.9 - Type 2 diabetes mellitus without complications Discontinued insulin aspart U-100 As per sliding scale, 16 unit max Discontinued Reason: Doctor's Order 16 units (0.16 mL) subcut TID 30 days 15 mL 3RF E11.9 - Type 2 diabetes mellitus without complications Coding Level of Care Code Est Pt Level 4 (45389) Complex EM visit Add On G2211 Diagnoses Type 2 diabetes mellitus without complication, without long-term current use of insulin E11.9 Diabetes mellitus type: type 2 Diabetes mellitus [facility] insulin use: without [facility] use Diabetes mellitus complication status: without complication ANTONIO (obstructive sleep apnea) G47.33 Primary hypertension I10 Hypertension type: primary hypertension Mixed hyperlipidemia E78.2 Hyperlipidemia type: mixed hyperlipidemia Class 3 severe obesity due to excess calories with serious comorbidity and body mass index (BMI) of 50.0 to 59.9 in adult E66.01; Z68.43 Obesity type: due to excess calories Obesity classification: adult class 3 (BMI >= 40) Serious obesity comorbidity presence: with serious comorbidity Body mass index: BMI 50.0-59.9 Opioid dependence in remission F11.21 Substance use status: in remission Tinea pedis of both feet B35.3 Cubital tunnel syndrome, bilateral G56.23
[2024-02-20 08:47] VITALS: BP 110/78; PULSE 91; O2SAT 95; BMI 52.4
== END 2024-02-20 09:25 | disposition home or self-care (01) ==
PROVIDERS: PCP Physician Assistant; Visit Provider Physician Assistant
DX: E11.9 Type 2 diabetes mellitus without complications (principal); G47.33 Obstructive sleep apnea (adult) (pediatric); I10 Essential (primary) hypertension; E78.2 Mixed hyperlipidemia; E66.01 Morbid (severe) obesity due to excess calories; Z68.43 Body mass index [BMI] 50.0-59.9, adult; F11.21 Opioid dependence, in remission; B35.3 Tinea pedis; G56.23 Lesion of ulnar nerve, bilateral upper limbs
CPT/HCPCS: 83036; 99214; G2211

== ENCOUNTER 2024-02-22 10:57 | Outpatient (AMB) | payer OTHER, SELFPAY ==
--- NOTE | 2024-02-22 10:58 | A.OFFVIS_ITS ---
Vital Signs 02/22/24 11:00 Height 5 ft 1 in Weight 277 lb BMI 52.3 BP 140/68 H Blood Pressure Location Lt brachial Position Sitting Intake Visit Reasons: post op Allergies ibuprofen [IBUPROFEN] Allergy (Unknown, Verified 02/22/24 11:01) SWELLING, face swelling seafood Allergy (Unknown, Verified 02/22/24 11:01) Anaphylaxis dulaglutide [From [facility]] Adverse Reaction (Intermediate, Verified 02/22/24 11:01) GI upset HPI Comments Details: The patient is presenting post hysteroscopy D&C no complaints minimal vaginal bleeding no feverishness chills or abdominal pain. The pathology showed the following: A. Endometrium, polypectomy: - Fragment with features of endometrial polyp. - Adenomyosis. - Background proliferative endometrium. - No atypia identified. B. Endometrium, curettage: Proliferative endometrium; negative for atypia or hyperplasia The following workup was done.: H&H= 10.8/33.8 TSH, hCG, GC and chlamydia were negative. Endometrial biopsy pathology showed proliferative endometrium with fragments of endometrial polyp, with no evidence of hyperplasia and/or malignancy. Co testing was done in 10/28 was negative. Mammogram was in 12/26 was BI-RADS 1. Pelvic ultrasound showed the following: FINDINGS: UTERUS: The uterus is anteverted. Size: 8.7 x 4.9 x 3.2 cm. Uterine mass: Multiple small uterine masses likely fibroids measuring up to 1.4 cm, 1.5 cm and 0.9 cm. Likely uterine fibroids. Echogenic structure along the anterior wall of the uterus possibly calcifications. Cervix: Grossly unremarkable. Endometrium: No ultrasound evidence of endometrial lesion. endometrial thickness measures ADNEXA: Normal Right ovary: Normal in size. Left ovary: Normal in size. Doppler exam: Normal Doppler flow identified in both ovaries. FREE FLUID: Trace amount of free fluid. OTHER FINDINGS: None PFSH Medical History Marijuana dependence Hypertension Hyperlipidemia Diabetes mellitus Morbid obesity Breast calcification, left GERD (gastroesophageal reflux disease) Surgical History Hx of dilation and curettage History of esophagogastroduodenoscopy (EGD) Hx of colonoscopy History of cholecystectomy Family History Father Mental health disorder Mother Drug abuse Emphysema lung COPD (chronic obstructive pulmonary disease) Heart disease Mental health disorder Substance use disorder Sister Thyroid cancer Maternal Grandfather Colon cancer Maternal Grandmother Colon cancer Social History Housing: Apartment Alcohol intake: never Patient Tobacco Use Status: Current everyday Tobacco user Cigarette Packs Per Day: 0.25 Cigarettes Per Day: 3 e-Cigarette/Vaping Use: Never Used Second Hand Smoke Exposure: Yes Substance Use Type: Marijuana service: No Current occupational status: employed 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, 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 Female Reproductive History Menstrual Age of Menarche: 13 Review of Systems Const All systems reviewed & are unremarkable except as noted in HPI and below Reports as per HPI and Reports no additional complaints GI Reports no additional complaints Reports no additional complaints Physical Exam Vital Signs: Last Vital Signs BP 140/68 H 02/22/24 11:00 BMI result Body Mass Index 52.3 Assessment & Plan Assessment & Plan (1) Myoma: Code(s): D21.9 - Benign neoplasm of connective and other soft tissue, unspecified Category: Medical Plan: Discussed with the patient the findings on pelvic ultrasound & the risk of myosarcoma; discussed with the patient the options of treatment including expectant management versus hysterectomy; the pros and cons, risks benefits of each approach were discussed with the patient including the fact that in cases of myosarcoma, surgical treatment can lead to early diagnosis and positively affects the prognosis; after further discussion, the patient decided to proceed with expectant management. Will repeat pelvic ultrasound in six-month. Instructions given to patient to call in case any of the following occurs: pressure symptoms, abnormal uterine bleeding, pelvic pain; and to schedule a six-month ultrasound and a follow-up appointment. All questions answered, the patient verbalized understanding and agreed with the plan . (2) Abnormal uterine bleeding: Comment: Endometrial polyp status post hysteroscopic polypectomy Anemia Code(s): N93.9 - Abnormal uterine and vaginal bleeding, unspecified Category: Medical Plan: Iron sulfate 325 mg p.o. q.d. repeat CBC in 8 weeks ordered. Discussed with the patient the results of the work up done and options of treatment including Lysteda, control pills, Mirena IUD, endometrial ablation and hysterectomy. All pros, cons, risks and benefits if each option was discussed with the patient and the patient decided to go ahead with Mirena IUD so a more detailed discussion about it was conducted including mechanism of action, risks (uterine perforation, infection, injury to bladder, bowel, displacement, and others) benefits (hypo menorrhea, amenorrhea, ...). GC/CT were recently taken and were negative and the patient was instructed to schedule Mirena IUD insertion on day 1-5 of next cycle . All questions answered, the patient verbalized understanding Orders: Orders Complete Blood Count no Diff 8 Weeks N93.9 - Abnormal uterine and vaginal bleeding, unspecified US pelvic and transvaginal 6 Months D21.9 - Benign neoplasm of connective and other soft tissue, unspecified Coding Level of Care Code Est Pt Level 3 (51922) Diagnoses Myoma D21.9 Abnormal uterine bleeding N93.9
[2024-02-22 11:00] VITALS: BP 140/68; BMI 52.3
== END 2024-02-22 11:14 | disposition home or self-care (01) ==
LOC: HO.HWS 10:57
PROVIDERS: PCP Physician Assistant; Visit Provider Obstetrics & Gynecology
DX: D21.9 Benign neoplasm of connective and other soft tissue, unspecified (principal); N93.9 Abnormal uterine and vaginal bleeding, unspecified
CPT/HCPCS: 99213

== ENCOUNTER → 2024-02-22 10:57 | Outpatient (BNVA) | payer OTHER, SELFPAY | PROVIDERS: PCP Physician Assistant; Visit Provider Obstetrics & Gynecology | DX: D21.9 Benign neoplasm of connective and other soft tissue, unspecified (principal); N93.9 Abnormal uterine and vaginal bleeding, unspecified | CPT/HCPCS: 99212 ==

== ENCOUNTER → 2024-04-08 10:00 | Outpatient (REF) | payer OTHER, SELFPAY | LOC: HO.SL 10:00 | PROVIDERS: PCP Physician Assistant; Visit Provider Physician Assistant | DX: G47.33 Obstructive sleep apnea (adult) (pediatric) (principal) | CPT/HCPCS: 95806 ==

== ENCOUNTER → 2024-04-08 10:09 | Outpatient (BNV) | payer OTHER, SELFPAY | PROVIDERS: PCP Physician Assistant; Visit Provider Internal Medicine | DX: G47.33 Obstructive sleep apnea (adult) (pediatric) (principal) | CPT/HCPCS: 95806 ==

== ENCOUNTER 2024-05-22 15:18 | Outpatient (AMB) | payer OTHER, SELFPAY ==
--- NOTE | 2024-05-22 15:22 | A.OFFPC_ITS ---
Vital Signs 05/22/24 15:36 Height 5 ft 1 in Weight 289 lb 6 oz BMI 54.7 BP 140/92 H Blood Pressure Location Lt brachial Position Sitting Pulse 92 Pulse Source Pulse Oximeter Pulse Oximetry (%) 98 Oxygen Delivery Method Room Air Intake Visit Reasons: f/u DMII Technical Consultant Required: No Accompanied by: Self / Same As Patient Allergies ibuprofen [IBUPROFEN] Allergy (Unknown, Verified 05/22/24 15:38) SWELLING, face swelling seafood Allergy (Unknown, Verified 05/22/24 15:38) Anaphylaxis dulaglutide [From [facility]] Adverse Reaction (Intermediate, Verified 05/22/24 15:38) GI upset Medication List - Last Reconciled 05/22/24 by Alden Flores PA-C alcohol swabs (Alcohol Prep Pads) 1 pad topical TID 90 days atorvastatin 40 mg PO DAILY 90 days blood pressure monitor (Blood Pressure Kit) As directed blood sugar diagnostic (FreeStyle Lite Strips) USE 1 STRIP DIRECTED 3 TIMES A DAY FOR 30 DAYS TESTING TWICE PER DAY blood-glucose meter,continuous (PersonSpotStyle Js 3 [place]) As directed blood-glucose sensor (FreeStyle Js 3 Sensor device) As directed buprenorphine-naloxone 4-1 mg (Suboxone) 8 film sublingual BEDTIME cholecalciferol (vitamin D3) 1,250 mcg PO QWEEK 8 weeks clotrimazole 1% 1 appl topical BID 30 days CPAP (CPAP Machine/Device) As directed gabapentin 600 mg PO BID 30 days insulin glargine-yfgn units subcut insulin lispro 1 sliding scale dose subcut USEASDIRECTD 30 days Lactobac. rhamnosus GG-inulin 10 billion cell -200 mg ([facility] GITR [facility]) 1 cap PO DAILY lancets (FreeStyle Lancets) As directed Lantus Solostar U-100 Insulin (insulin glargine) 48 units (0.48 mL) subcut QAM 30 days NS losartan 50 mg PO DAILY 90 days omeprazole 40 mg PO DAILY 90 days pen needle, diabetic (BD Lis 2nd Gen Pen Needle) As directed safety needles (BD Eclipse) As directed semaglutide (Ozempic) 0.25 mg (0.187 mL) subcut QWEEK 4 weeks Tobacco use date assessed: 02/20/24 Dental Screening Dental Screen Date: 12/18/23 HPI f/u DMII HPI Details Patient is a 44-year-old female here today for f/u visit. ? Patient has a past medical history significant for morbid obesity, type 2 diabetes, hyperlipidemia, opiate dependency, hypertension. Obstructive sleep apnea: Recently underwent a home sleep study that did show mild obstructive sleep apnea with some hypoxemia night. Reports from pulmonology say CPAP would be helpful. ? .. Type 2 diabetes:? Type 2 diabetes has been uncontrolled, today's A1c at 9.4 . She does admit to some dietary indiscretion. She has recently started Ozempic which she feels has been helpful for some glycemic control. PLAN: Will increase her Ozempic to 0.5 mg weekly, also will increase her long- acting insulin to 50 units daily. ?. .. Hyperlipidemia: Most recent lipid panel showing slightly elevated LDL at 122. She has restarted statin therapy. Will recheck lipid panel before next office visit. Goal LDL to be below 100 .. Obesity:? Unfortunately gained weight since last office visit. Has been able to reduce her weight with dietary modifications.? She still understands her BMI is well over 30 will work on being more physically active and continue dietary modifications to help lose weight. . Hypertension:? Blood pressure controlled today in office.? Patient denies any chest discomfort, headaches, dizziness or shortness of breath on exertion. Laboratory Tests 01/11/23 10/30/23 12/05/23 11:06 13:49 00:36 Hgb 11.7 L 10.8 L Fasting Glucose Hgb A1c (Clinic) 6.7 H Cholesterol LDL Cholesterol, C alc 02/07/24 02/20/24 12:11 08:45 Hgb Fasting Glucose 140 H Hgb A1c (Clinic) 9.4 H Cholesterol 107 LDL Cholesterol, C alc 55 PFSH Medical History Marijuana dependence Hypertension Hyperlipidemia Diabetes mellitus Morbid obesity Breast calcification, left GERD (gastroesophageal reflux disease) Surgical History Hx of dilation and curettage History of esophagogastroduodenoscopy (EGD) Hx of colonoscopy History of cholecystectomy Family History Father Mental health disorder Mother Drug abuse Emphysema lung COPD (chronic obstructive pulmonary disease) Heart disease Mental health disorder Substance use disorder Sister Thyroid cancer Maternal Grandfather Colon cancer Maternal Grandmother Colon cancer Social History Housing: Apartment Alcohol intake: never Patient Tobacco Use Status: Current everyday Tobacco user Cigarette Packs Per Day: 0.25 Cigarettes Per Day: 3 e-Cigarette/Vaping Use: Never Used Second Hand Smoke Exposure: Yes Substance Use Type: Marijuana service: No Current occupational status: employed 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 Nate Vences, Rosa Velez, Buddy Jensen and colleagues, with an educational ale from [employer]. Review of Systems Const Denies headache(s) Eyes Denies loss of vision ENT Denies vertigo, Denies dizziness, Denies headache(s) and Denies sore throat Card Denies chest pain, Denies leg edema and Denies lightheadedness Resp Denies cough, Denies hemoptysis and Denies wheezing GI Denies abdominal pain, Denies melena, Denies constipation, Denies diarrhea and Denies vomiting Denies urinary frequency, Denies dysuria and Denies urinary urgency Musc Denies arthralgias, Denies joint swelling, Denies numbness and Denies tingling Neuro Denies Abnormal speech present, Denies behavioral changes, Denies vertigo, Denies dizziness, Denies headache(s), Denies loss of vision, Denies memory loss, Denies numbness and Denies tingling Psych Denies anxiety, Denies behavioral changes, Denies depression, Denies memory loss and Denies panic attacks Gen/Lymph Denies easy bleeding and Denies easy bruising Aller/Immun Denies wheezing Physical exam (Primary Care) Vital Signs: Last Vital Signs Pulse 92 05/22/24 15:36 BP 140/92 H 05/22/24 15:36 Pulse Ox 98 05/22/24 15:36 Oxygen Delivery Method Room Air 05/22/24 15:36 BMI result Body Mass Index 54.7 BMI Assessment/Plan discussion: High BMI High, discussed plan: lifestyle, weight reduction, dietary and physical activity Tobacco/Smoking Status: Tobacco use Status Tobacco use date assessed 02/20/24 05/22/24 15:24 Patient Tobacco Use Status Current everyday Tobacco 05/22/24 15:24 e-Cigarette/Vaping Use Never Used 05/22/24 15:24 Thrive Assessment: Date of Thrive Assessment Date Thrive assessed 11/20/23 05/22/24 15:24 Const Other: OBESE General: healthy appearing, no acute distress, alert and awake Nutritional Appearance: well nourished Orientation/consciousness: oriented to person, oriented to place and oriented to time HENMT Ears: TM's normal bilaterally General nose exam: Normal nasal mucous membranes and turbinates present Eyes Conjunctivae: conjunctivae normal Sclerae: sclerae normal Pupils: Equal, round and reactive pupils present Neck Neck: Yes no lymphadenopathy and Yes no JVD Thyroid: Thyroid normal Carotids: no bruits Resp Effort & Inspection: normal respiratory effort and not tachypneic Auscultation: no crackles, no rales, no rhonchi and no wheezes Cardio Rate: regular rate Rhythm: regular rhythm Heart sounds: no murmurs and normal S1 and S2 GI Palpation (GI): Soft to palpation, nontender, no hepatomegaly and no splenomegaly Auscultation: normal bowel sounds Skin General skin exam: no rashes or lesions noted and dry skin Neuro General: oriented to person, oriented to place and oriented to time Cranial nerves: Yes Equal, round and reactive pupils present Speech: No Abnormal speech present Gait exam (Neuro): Normal gait present Motor exam (neuro): no tremor noted Extrem Right upper extremity: full ROM Left upper extremity: full ROM Right lower extremity: full ROM; no edema Left lower extremity: full ROM; no edema Psych Mental Status: mental status grossly normal Speech and movement: Normal speech and movement present Affect: normal affect Attitude: cooperative Thought process: Normal thought process present Assessment and Plan Assessment & Plan (1) Diabetes mellitus: Code(s): E11.9 - Type 2 diabetes mellitus without complications Qualifiers: Diabetes mellitus complication status: without complication 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 Will increase her Ozempic dose to 0.5 mg weekly. Will also increase her long-acting insulin to 50 units daily. She will work on lifestyle and dietary modifications. She feels that since starting Ruy P1 her sugars have been much better. Goal A1c is to be below 7.0 (2) Hypertension: Code(s): I10 - Essential (primary) hypertension Qualifiers: Hypertension type: primary hypertension Qualified Code(s): I10 - Essential (primary) hypertension Plan: Blood pressure acceptable today in office. Will continue her current dose of antihypertensive medication with goal blood pressure to remain below 140/90 . (3) Hyperlipidemia: Code(s): E78.5 - Hyperlipidemia, unspecified Qualifiers: Hyperlipidemia type: mixed hyperlipidemia Qualified Code(s): E78.2 - Mixed hyperlipidemia Plan: Patient's most recent lipid panel showing excellent control over total cholesterol and LDL. Will continue on current dose of cholesterol medication with goal LDL to remain below 100 (4) Obese: Code(s): E66.9 - Obesity, unspecified Qualifiers: Body mass index: BMI 50.0-59.9 Obesity classification: adult class 3 (BMI >= 40) Obesity type: due to excess calories Serious obesity comorbidity presence: with serious comorbidity Qualified Code(s): E66.01 - Morbid (severe) obesity due to excess calories; Z68.43 - Body mass index [BMI] 50.0-59.9, adult Plan: Has noted weight gain since last office visit. She has recently started GLP 1 and anticipates losing weight. (5) Opiate dependence: Code(s): F11.20 - Opioid dependence, uncomplicated Qualifiers: Substance use status: in remission Qualified Code(s): F11.21 - Opioid dependence, in remission Plan: Has been started on Suboxone. Does see a Suboxone clinic in [facility]. Since starting Suboxone her abdominal pain has resolved. (6) Cubital tunnel syndrome, bilateral: Code(s): G56.23 - Lesion of ulnar nerve, bilateral upper limbs Plan: Patient found to have cubital tunnel syndrome bilaterally. Now followed by Orthopedics whom want glycemic control before doing surgery. Will check back in 3 months with an A1c - goal A1c is to be below 7.0 Orders: Orders AMB Hemoglobin A1c 09/18/24 E11.9 - Type 2 diabetes mellitus without complications Medications: Changed From semaglutide (Ozempic) for 4 weeks 0.25 mg (0.187 mL) subcut QWEEK 4 weeks 1.5 mL 0RF E11.9 - Type 2 diabetes mellitus without complications To semaglutide (Ozempic) for 4 weeks 0.5 mg (0.374 mL) subcut QWEEK 4 weeks 1.5 mL 1RF E11.9 - Type 2 diabetes mellitus without complications Refilled losartan 50 mg PO DAILY 90 days 90 tabs 1RF I10 - Essential (primary) hypertension Patient Instructions: Goal: A1c to be below 7.0, LDL to remain below 100 Barrier: Adherence to physical activity and healthy eating habits Coding Level of Care Code Est Pt Level 4 (21979) Diagnoses Type 2 diabetes mellitus without complication, without long-term current use of insulin E11.9 Diabetes mellitus complication status: without complication 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 insulin use: without senior living use Diabetes mellitus type: type 2 Primary hypertension I10 Hypertension type: primary hypertension Mixed hyperlipidemia E78.2 Hyperlipidemia type: mixed hyperlipidemia Class 3 severe obesity due to excess calories with serious comorbidity and body mass index (BMI) of 50.0 to 59.9 in adult E66.01; Z68.43 Body mass index: BMI 50.0-59.9 Obesity classification: adult class 3 (BMI >= 40) Obesity type: due to excess calories Serious obesity comorbidity presence: with serious comorbidity Opioid dependence in remission F11.21 Substance use status: in remission Cubital tunnel syndrome, bilateral G56.23
[2024-05-22 15:36] VITALS: BP 140/92; PULSE 92; O2SAT 98; BMI 54.7
== END 2024-05-22 15:52 | disposition home or self-care (01) ==
PROVIDERS: PCP Physician Assistant; Visit Provider Physician Assistant
DX: E11.9 Type 2 diabetes mellitus without complications (principal); E66.01 Morbid (severe) obesity due to excess calories; Z68.43 Body mass index [BMI] 50.0-59.9, adult; F11.21 Opioid dependence, in remission; I10 Essential (primary) hypertension; E78.2 Mixed hyperlipidemia; G56.23 Lesion of ulnar nerve, bilateral upper limbs

== ENCOUNTER → 2024-05-22 15:18 | Outpatient (BNVA) | payer OTHER, SELFPAY | PROVIDERS: PCP Physician Assistant; Visit Provider Physician Assistant | DX: E11.9 Type 2 diabetes mellitus without complications (principal); I10 Essential (primary) hypertension; E78.2 Mixed hyperlipidemia; E66.01 Morbid (severe) obesity due to excess calories; Z68.43 Body mass index [BMI] 50.0-59.9, adult; F11.21 Opioid dependence, in remission; G56.23 Lesion of ulnar nerve, bilateral upper limbs; Z71.3 Dietary counseling and surveillance; Z79.85 Long-term (current) use of injectable non-insulin antidiabetic drugs | CPT/HCPCS: 99212 ==

== ENCOUNTER 2024-05-23 11:02 | Outpatient (AMB) | payer OTHER, SELFPAY ==
--- NOTE | 2024-05-23 11:04 | A.OFFVIS_ITS ---
Vital Signs 05/23/24 11:10 Height 5 ft 1 in Weight 288 lb 12.889 oz BMI 54.6 BP 118/82 Blood Pressure Location Rt brachial Position Sitting Pulse 92 Pulse Source Pulse Oximeter Intake Visit Reasons: T2DM/Unable to lvm Intake Note: Patient presents today to re-establish treatment for Type 2 Diabetes Mellitus: Last Diabetic eye exam was on: DUE Last Podiatry exam was on: Does not see a Tank Car Inspector Most recent HbA1c: 10.1%, 05/23/2024 bbRandom Glucose- 174 mg/dL, Today Parimutuel Ticket Checker Required: No Accompanied by: Self / Same As Patient Allergies ibuprofen [IBUPROFEN] Allergy (Unknown, Verified 05/23/24 11:08) SWELLING, face swelling seafood Allergy (Unknown, Verified 05/23/24 11:08) Anaphylaxis dulaglutide [From Trulicity] Adverse Reaction (Intermediate, Verified 05/23/24 11:08) GI upset Medication List - Last Reconciled 05/23/24 by Britt Ruiz MD alcohol swabs (Alcohol Prep Pads) 1 pad topical TID 90 days atorvastatin 40 mg PO DAILY 90 days blood pressure monitor (Blood Pressure Kit) As directed blood sugar diagnostic (FreeStyle Lite Strips) USE 1 STRIP DIRECTED 3 TIMES A DAY FOR 30 DAYS TESTING TWICE PER DAY blood-glucose meter,continuous (FreeStyle Js 3 [place]) As directed blood-glucose sensor (FreeStyle Js 3 Sensor device) As directed buprenorphine-naloxone 4-1 mg (Suboxone) 8 film sublingual BEDTIME cholecalciferol (vitamin D3) 1,250 mcg PO QWEEK 8 weeks clotrimazole 1% 1 appl topical BID 30 days CPAP (CPAP Machine/Device) As directed ferrous sulfate 325 mg PO DAILY gabapentin 600 mg PO BID 30 days insulin glargine (Lantus Solostar U-100 Insulin) 50 units subcut QAM insulin lispro 1 sliding scale dose subcut USEASDIRECTD 30 days Lactobac. rhamnosus GG-inulin 10 billion cell -200 mg ([facility]) 1 cap PO DAILY lancets (FreeStyle Lancets) As directed losartan 50 mg PO DAILY 90 days omeprazole 40 mg PO DAILY 90 days pen needle, diabetic (BD Lis 2nd Gen Pen Needle) As directed safety needles (BD Eclipse) As directed semaglutide (Ozempic) 0.5 mg (0.374 mL) subcut QWEEK 4 weeks HPI Comments Details: 44 year old female with type 2 diabetes presenting for diabetes Medical history: cubital tunnel, hld, obesity Diabetes diagnosed: at age 31 Seen by PCP yesterday. A1C noted at 9.4%. Today POC A1C 10.1% Her ozempic was increased to 0.5mg weekly and lantus was increased to 50 units nightly. Reviewed her glucose readings today. Her sensor recently fell off-she is getting a new one at the pharmacy today. Highest readings 6pm-12pm but most readings hyperglycemic with no episodes of hypoglycemia Eye exam is overdue-referral placed Maternal and paternal diabetes ROS CONSTITUTIONAL: Denies weight loss, fever and chills. HEENT: Denies changes in vision and hearing. RESPIRATORY: Denies SOB and cough. CV: Denies palpitations and CP GI: Denies abdominal pain, nausea, vomiting and diarrhea. : Denies dysuria and urinary frequency. MSK: Denies new myalgia and joint pain. SKIN: Denies rash and pruritus. NEUROLOGICAL: bilateral wrist, hand and forearm pain PSYCHIATRIC: Denies recent changes in mood. PHYSICAL EXAM: GENERAL: Alert and oriented x 3. NAD EYES: EOMI. Anicteric. HENT: Moist mucous membranes. LUNGS: Clear to auscultation bilaterally. CARDIOVASCULAR: Regular rate and rhythm. No murmur. ABDOMEN: Soft, non-tender +bs EXTREMITIES: No edema. Non-tender. SKIN: No rashes or lesions. Warm. NEUROLOGIC: No focal neurological deficits. CN II-XII grossly intact PSYCHIATRIC: Cooperative. Appropriate mood and affect [facility] Medical History Marijuana dependence Hypertension Hyperlipidemia Diabetes mellitus Morbid obesity Breast calcification, left GERD (gastroesophageal reflux disease) Surgical History Hx of dilation and curettage History of esophagogastroduodenoscopy (EGD) Hx of colonoscopy History of cholecystectomy Family History Father Mental health disorder Mother Drug abuse Emphysema lung COPD (chronic obstructive pulmonary disease) Heart disease Mental health disorder Substance use disorder Sister Thyroid cancer Maternal Grandfather Colon cancer Maternal Grandmother Colon cancer Social History Housing: Apartment Alcohol intake: never Patient Tobacco Use Status: Current everyday Tobacco user Cigarette Packs Per Day: 0.25 Cigarettes Per Day: 3 e-Cigarette/Vaping Use: Never Used Second Hand Smoke Exposure: Yes Substance Use Type: Marijuana service: No Current occupational status: employed 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, 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 Female Reproductive History Menstrual Age of Menarche: 13 Physical Exam Vital Signs: Last Vital Signs Pulse 92 05/23/24 11:10 BP 118/82 05/23/24 11:10 BMI result Body Mass Index 54.6 Results AMB Hemoglobin A1c AMB Hemoglobin A1c 10.1 % Last Edit by DAKSHA Rosario on 05/23/24 11:2 7 Results Reviewed Results Reviewed: Laboratory Last Values Glucose (Clinic) 174 mg/dL (60-115) H 05/23/24 11:18 Hgb A1c (Clinic) 10.1 % (4.0-6.0) H 05/23/24 11:26 Assessment & Plan Assessment & Plan (1) Diabetes mellitus: Code(s): E11.9 - Type 2 diabetes mellitus without complications Category: Medical Qualifiers: Diabetes mellitus type: type 2 Diabetes mellitus intermediate school 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 She will be starting ozempic 0.5mg (increased from 0.25mg). she will increase her lantus to 54 units. She will increase her evening lispro dose by 6 units (2) Chronic painful diabetic neuropathy: Code(s): E11.40 - Type 2 diabetes mellitus with diabetic neuropathy, unspecified Category: Medical Plan: Improved glycemic control. Frequent foot checks Orders: Orders AMB Hemoglobin A1c Today E11.9 - Type 2 diabetes mellitus without complications Referrals Ophthalmology Referral E11.9 - Type 2 diabetes mellitus without complications Medications: Changed From insulin glargine (Lantus Solostar U-100 Insulin) 50 units subcut QAM E11.9 - Type 2 diabetes mellitus without complications To insulin glargine (Lantus Solostar U-100 Insulin) 54 units subcut QAM E11.9 - Type 2 diabetes mellitus without complications From insulin lispro As per sliding scale Max 16 units 1 sliding scale dose subcut USEASDIRECTD 30 days 15 mL 1RF E11.9 - Type 2 diabetes mellitus without complications To insulin lispro As per sliding scale Max 26 units 1 sliding scale dose subcut USEASDIRECTD 30 days 30 mL 1RF E11.9 - Type 2 diabetes mellitus without complications Coding Level of Care Code Est Pt Level 5 (24096) Diagnoses Type 2 diabetes mellitus with diabetic polyneuropathy, with long-term current use of insulin E11.42; Z79.4 Diabetes mellitus type: type 2 Diabetes mellitus intermediate school teacher insulin use: with mcfp use Diabetes mellitus complication status: with neurologic complications Diabetes mellitus complication detail: with polyneuropathy Chronic painful diabetic neuropathy E11.40 Time Spent (min) 45
[2024-05-23 11:10] VITALS: BP 118/82; PULSE 92; BMI 54.6
[2024-05-23 11:23] LABS: Glucose, Whole Blood 174 mg/dL (60-115)
== END 2024-05-23 11:47 | disposition home or self-care (01) ==
PROVIDERS: PCP Physician Assistant; Visit Provider Internal Medicine
DX: E11.42 Type 2 diabetes mellitus with diabetic polyneuropathy (principal); Z79.4 Long term (current) use of insulin; E11.40 Type 2 diabetes mellitus with diabetic neuropathy, unspecified

== ENCOUNTER → 2024-05-23 11:02 | Outpatient (BNVA) | payer OTHER, SELFPAY | PROVIDERS: PCP Physician Assistant; Visit Provider Internal Medicine | DX: E11.42 Type 2 diabetes mellitus with diabetic polyneuropathy (principal); E78.5 Hyperlipidemia, unspecified; E66.9 Obesity, unspecified; Z79.4 Long term (current) use of insulin; Z68.43 Body mass index [BMI] 50.0-59.9, adult | CPT/HCPCS: 82947; 83036; 99212 ==

== ENCOUNTER 2024-06-20 11:28 | Outpatient (AMB) | payer SELFPAY ==
--- NOTE | 2024-06-20 11:30 | A.OFFVIS_ITS ---
Vital Signs 06/20/24 11:32 Height 5 ft 1 in Weight 291 lb 0.163 oz BMI 55.0 BP 120/80 Blood Pressure Location Rt brachial Position Sitting Pulse 86 Pulse Source Pulse Oximeter Intake Visit Reasons: T2DM Intake Note: Patient presents today for a follow-up on Type 2 Diabetes Mellitus: Last Diabetic eye exam was on: DUE Last Podiatry exam was on: Does not see a Sand Buffer Most recent HbA1c: 10.1%, 05/23/2024 Random Glucose- 145mg/dL, Today Cycle Counter Required: No Accompanied by: Self / Same As Patient Allergies ibuprofen [IBUPROFEN] Allergy (Unknown, Verified 05/23/24 11:08) SWELLING, face swelling seafood Allergy (Unknown, Verified 05/23/24 11:08) Anaphylaxis dulaglutide [From Trulicity] Adverse Reaction (Intermediate, Verified 05/23/24 11:08) GI upset HPI Comments Details: 44 year old female with type 2 diabetes presenting for diabetes Medical history: cubital tunnel, hld, obesity Diabetes diagnosed: at age 31 Current medications: Lantus increased to 54 units (from 50), Lispro was increased 6 units to 26 units at dinner. Ozempic was increase to 0.5mg. A1C was 10.1% on last visit 05/23-one month ago. CGM reviewed today. 7 day GMI 7.3% 14 day 7.5%, average 166, average fastings 140s to 150s. No lows. Hyperglycemia is 6pm to midnight Eye exam is overdue-referral placed last visit Maternal and paternal diabetes ROS CONSTITUTIONAL: Denies weight loss, fever and chills. HEENT: Denies changes in vision and hearing. RESPIRATORY: Denies SOB and cough. CV: Denies palpitations and CP GI: Denies abdominal pain, nausea, vomiting and diarrhea. : Denies dysuria and urinary frequency. MSK: Denies new myalgia and joint pain. SKIN: Denies rash and pruritus. NEUROLOGICAL: bilateral wrist, hand and forearm pain PSYCHIATRIC: Denies recent changes in mood. PHYSICAL EXAM: GENERAL: Alert and oriented x 3. NAD EYES: EOMI. Anicteric. HENT: Moist mucous membranes. LUNGS: Clear to auscultation bilaterally. CARDIOVASCULAR: Regular rate and rhythm. No murmur. ABDOMEN: Soft, non-tender +bs EXTREMITIES: No edema. Non-tender. SKIN: No rashes or lesions. Warm. NEUROLOGIC: No focal neurological deficits. CN II-XII grossly intact PSYCHIATRIC: Cooperative. Appropriate mood and affect [facility] Medical History Marijuana dependence Hypertension Hyperlipidemia Diabetes mellitus Morbid obesity Breast calcification, left GERD (gastroesophageal reflux disease) Surgical History Hx of dilation and curettage History of esophagogastroduodenoscopy (EGD) Hx of colonoscopy History of cholecystectomy Family History Father Mental health disorder Mother Drug abuse Emphysema lung COPD (chronic obstructive pulmonary disease) Heart disease Mental health disorder Substance use disorder Sister Thyroid cancer Maternal Grandfather Colon cancer Maternal Grandmother Colon cancer Social History Housing: Apartment Alcohol intake: never Patient Tobacco Use Status: Current everyday Tobacco user Cigarette Packs Per Day: 0.25 Cigarettes Per Day: 3 e-Cigarette/Vaping Use: Never Used Second Hand Smoke Exposure: Yes Substance Use Type: Marijuana service: No Current occupational status: employed 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, 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 Female Reproductive History Menstrual Age of Menarche: 13 Physical Exam Vital Signs: Last Vital Signs Pulse 86 06/20/24 11:32 BP 120/80 06/20/24 11:32 BMI result Body Mass Index 55.0 Results Reviewed Results Reviewed: Laboratory Last Values Glucose (Clinic) 145 mg/dL (60-115) H 06/20/24 11:36 Assessment & Plan Assessment & Plan (1) Diabetes mellitus: Code(s): E11.9 - Type 2 diabetes mellitus without complications Category: Medical Qualifiers: Diabetes mellitus complication detail: with polyneuropathy Diabetes mellitus complication status: with neurologic complications Diabetes mellitus director long term care insulin use: with director long term care use Diabetes mellitus type: type 2 Qualified Code(s): E11.42 - Type 2 diabetes mellitus with diabetic polyneuropathy; Z79.4 - care home (current) use of insulin Plan: Much improved control. Still suboptimal with hyperglycemia primarily occuring after dinner. Will increase her dinner lispro and increase ozempic to 1mg daily. She is due for A1C in two months. Follow up in 2 months Medications: New Ozempic (semaglutide) 1 mg (0.75 mL) subcut QWEEK 9 mL 3RF NS E11.42 - Type 2 diabetes mellitus with diabetic polyneuropathy, Z79.4 - termite helper (current) use of insulin Changed From insulin lispro As per sliding scale Max 26 units 1 sliding scale dose subcut USEASDIRECTD 30 days 30 mL 3RF E11.9 - Type 2 diabetes mellitus without complications To insulin lispro sliding scale breakfast and lunch-max 26 units 30 units with dinner 1 sliding scale dose subcut USEASDIRECTD 30 days 30 mL 3RF E11.9 - Type 2 diabetes mellitus without complications Discontinued semaglutide (Ozempic) for 4 weeks Discontinued Reason: Duplicate 0.5 mg (0.374 mL) subcut QWEEK 4 weeks 1.5 mL 1RF E11.9 - Type 2 diabetes mellitus without complications Coding Level of Care Code Est Pt Level 4 (18050) Diagnoses Type 2 diabetes mellitus with diabetic polyneuropathy, with long-term current use of insulin E11.42; Z79.4 Diabetes mellitus complication detail: with polyneuropathy Diabetes mellitus complication status: with neurologic complications Diabetes mellitus fdc insulin use: with fdc use Diabetes mellitus type: type 2
[2024-06-20 11:32] VITALS: BP 120/80; PULSE 86; BMI 55.0
[2024-06-20 11:39] LABS: Glucose, Whole Blood 145 mg/dL (60-115)
== END 2024-06-20 11:57 | disposition home or self-care (01) ==
PROVIDERS: PCP Physician Assistant; Visit Provider Internal Medicine
DX: E11.42 Type 2 diabetes mellitus with diabetic polyneuropathy (principal); Z79.4 Long term (current) use of insulin

== ENCOUNTER → 2024-06-20 11:28 | Outpatient (BNVA) | payer OTHER, SELFPAY | PROVIDERS: PCP Physician Assistant; Visit Provider Internal Medicine | DX: E11.42 Type 2 diabetes mellitus with diabetic polyneuropathy (principal); Z79.4 Long term (current) use of insulin | CPT/HCPCS: 82947; 99212 ==

== ENCOUNTER 2024-07-09 10:22 | Outpatient (AMB) | payer MEDICAID, SELFPAY ==
--- NOTE | 2024-07-09 10:37 | A.OFFVISCC_ITS ---
Vital Signs 07/09/24 10:54 BP 145/80 H Blood Pressure Location Lt radial Position Sitting Respiration 19 Pulse 85 Pulse Source Pulse Oximeter Pulse Oximetry (%) 95 Intake Visit Reasons: Intake Allergies ibuprofen [IBUPROFEN] Allergy (Unknown, Verified 05/23/24 11:08) SWELLING, face swelling seafood Allergy (Unknown, Verified 05/23/24 11:08) Anaphylaxis dulaglutide [From Trulicity] Adverse Reaction (Intermediate, Verified 05/23/24 11:08) GI upset HPI HPI Intake: Details: Patient presents for intake and continuation of treatment for OUD Transfer from [facility] due to insurance issues (HSN) She reports that her last opiate use was at the end of September 2023- at this time she was using prescribed tramadol, non prescribed Dilaudid, and oxycodone --PO only no IN, no IVDU She states she presented to [facility] ED for help and was started on Suboxone there, then referred to [facility] Denies any admission to ATS Denies any history of overdose Family history of addiction: mother with KATHRYN Has narcan at home Current dose is 12mg daily Dose increased in May from 8mg Increase in dose has been helpful Denies any constipation or other side effects Takes 4mg in AM and 8mg in evening history: -was seeing therapist at [facility] every 2 weeks, due to insurance issues, also lost therapist -currently in process of finding new therapist -denies any dx or treatment for BH Medical: -PCP at [facility] -notes, labs and med list reviewed -reporting pain in hands --hoping for surgery once A1c is stabilized -has been working with endocrine in managing blood sugars Social: -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 -lives with ex partner and son [facility] Medical History Marijuana dependence Hypertension Hyperlipidemia Diabetes mellitus Morbid obesity Breast calcification, left GERD (gastroesophageal reflux disease) Surgical History Hx of dilation and curettage History of esophagogastroduodenoscopy (EGD) Hx of colonoscopy History of cholecystectomy Family History Father Mental health disorder Mother Drug abuse Emphysema lung COPD (chronic obstructive pulmonary disease) Heart disease Mental health disorder Substance use disorder Sister Thyroid cancer Maternal Grandfather Colon cancer Maternal Grandmother Colon cancer Social History Housing: Apartment Alcohol intake: never Patient Tobacco Use Status: Current everyday Tobacco user Cigarette Packs Per Day: 0.25 Cigarettes Per Day: 3 e-Cigarette/Vaping Use: Never Used Second Hand Smoke Exposure: Yes Substance Use Type: Marijuana service: No Current occupational status: employed 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, 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 Female Reproductive History Menstrual Age of Menarche: 13 Review of Systems Const Reports as per HPI and Reports no additional complaints Physical Exam Vital Signs: Last Vital Signs Pulse 85 07/09/24 10:54 Resp 19 07/09/24 10:54 BP 145/80 H 07/09/24 10:54 Pulse Ox 95 07/09/24 10:54 Const General: cooperative, healthy appearing and well groomed Nutritional Appearance: overweight Orientation/consciousness: patient oriented x3 Limitations: no limitations Neuro General: patient oriented x3 Results AMB 14 Panel Urine Drug Screen Urine Marijuana (THC) Positive Last Edit by Xenia Vaca RN on 07/09/24 10:56 Urine Cocaine Negative Last Edit by Xenia Vaca RN on 07/09/24 10:56 Urine Morphine Negative Last Edit by Xenia Vaca RN on 07/09/24 10:56 Urine Methamphetamine Negative Last Edit by Xenia Vaca RN on 07/09/24 10:56 Urine Amphetamine Negative Last Edit by Xenia Vaca RN on 07/09/24 10:56 Urine Benzodiazepine Negative Last Edit by Xenia Vaca RN on 07/09/24 10 :56 Urine Barbiturates Negative Last Edit by Xenia Vaca RN on 07/09/24 10:5 6 Urine Methadone Negative Last Edit by Xenia Vaca RN on 07/09/24 10:56 Urine Buprenorphine Positive Last Edit by Xenia Vaca RN on 07/09/24 10: 56 Urine Tricyclic Antidepressant Negative Last Edit by Xenia Vaca RN on 07/09/24 10:56 Urine MDMA Negative Last Edit by Xenia Vaca RN on 07/09/24 10:56 Urine Oxycodone Negative Last Edit by Xenia Vaca RN on 07/09/24 10:56 Urine Phencyclidine Negative Last Edit by Xenia Vaca RN on 07/09/24 10: 56 Urine Propoxyphene Negative Last Edit by Xenia Vaca RN on 07/09/24 10:5 6 Results Reviewed Results Reviewed: Laboratory Last Values POC Urine Buprenorphine Positive 07/09/24 10:55 POC Urine Morphine Negative 07/09/24 10:55 POC Urine Oxycodone Negative 07/09/24 10:55 POC Urine Methadone Negative 07/09/24 10:55 POC Urine Propoxyphene Negative 07/09/24 10:55 POC Urine Barbiturates Negative 07/09/24 10:55 POC U Tricyclic Antidpr Negative 07/09/24 10:55 POC Urine PCP Negative 07/09/24 10:55 POC Ur Amphetamines Negative 07/09/24 10:55 POC Ur Methamphetamine Negative 07/09/24 10:55 POC Urine MDMA Negative 07/09/24 10:55 POC Ur Benzodiazepine Negative 07/09/24 10:55 POC Urine Cocaine Negative 07/09/24 10:55 POC Ur Marijuana (THC) Positive 07/09/24 10:55 Assessment & Plan Assessment & Plan (1) Opioid use disorder, moderate, in early remission, dependence: Code(s): F11.21 - Opioid dependence, in remission Category: Medical Plan: * Suboxone 12mg films--discussed cutting film in half for BID dosing- * follow up 2 weeks Orders: Orders AMB 14 Panel Urine Drug Screen Today Z51.81 - Encounter for therapeutic drug level monitoring Medications: New buprenorphine-naloxone 12-3 mg (Suboxone) 1 film buccal Q24H 30 ea 0RF MAT Intake Nursing Intake Reason for visit: Change in clinic Are you currently using?: No When was your last use?: 2 years ago Current PCP: Orlin Flores Date of last visit: this month Substance Abuse History Substance Abuse History (includes route, frequency and quantity): Buprenorphine/naloxone, Oxycodone product, Other opioids, Alcohol (socially) and Other (meth 20 years ago while living in [place]) IV Drug Use Have you ever shared needles?: No Have you ever belonged to a needle exchange program?: No Do you buy needles at a pharmacy?: No Have you ever overdosed?: No Have you ever been hospitalized for an overdose?: No Was Naloxone administered?: Not applicable Recovery History Have you had any periods of recovery?: Yes What is your longest time in recovery?: 2 years ago Have you ever had inpatient treatment for your substance abuse disorder?: No Have you been in an inpatient detoxification program?: No Have you been in an inpatient Rehab/Long-Term house?: No Have you been in an outpatient Methadone Maintenance program?: Yes Have you been in an outpatient Suboxone Maintenance program?: Yes Have you been in an AA/NA support program?: No Have you had a Recovery Support Petroleum Plant Operator?: No Have you had Peer Support?: No Behavioral Health History BH diagnosis: No diagnosis History of self harming thoughts?: No History of homicidal or suicidal intentions?: No Medical Conditions Other: Yes Do you have any chronic pain conditions?: Diabetes Legal History History of incarceration: No Currently on parole or probation: No Court mandated programs: No Pending court cases: No DCF involvement: No
[2024-07-09 10:54] VITALS: BP 145/80; PULSE 85; RESP 19; O2SAT 95
== END 2024-07-09 11:40 | disposition home or self-care (01) ==
LOC: HO.HCC 10:22
PROVIDERS: PCP Physician Assistant; Visit Provider Nurse Practitioner Psychiatric/Mental Health
DX: Z51.81 Encounter for therapeutic drug level monitoring (principal); F11.21 Opioid dependence, in remission
CPT/HCPCS: 99204

== ENCOUNTER → 2024-07-09 10:22 | Outpatient (BNVA) | payer MEDICAID, SELFPAY | PROVIDERS: PCP Physician Assistant; Visit Provider Nurse Practitioner Psychiatric/Mental Health | DX: F11.21 Opioid dependence, in remission (principal); Z51.81 Encounter for therapeutic drug level monitoring | CPT/HCPCS: 80307; 99212 ==

== ENCOUNTER 2024-07-24 13:01 | Outpatient (AMB) | payer MEDICAID, SELFPAY ==
--- NOTE | 2024-07-24 13:09 | MHC.AM.SUB ---
Intake Visit Reasons: MAT Office Allergies ibuprofen [IBUPROFEN] Allergy (Unknown, Verified 05/23/24 11:08) SWELLING, face swelling seafood Allergy (Unknown, Verified 05/23/24 11:08) Anaphylaxis [facility] Adverse Reaction (Intermediate, Verified 05/23/24 11:08) GI upset HPI HPI MAT Office: Details: Patient presents for follow up Currently prescribed Suboxone 12mg daily --split dosing tolerating split dose Denies any side effects-- Has been spening more time being active, pleased with this Denies any withdrawal sx or thoughts of using pills sleep somewhat impaired due to not having regular insulin ([place] issues) Review of Systems Const Reports as per HPI Physical Exam Const General: cooperative, healthy appearing and well groomed Nutritional Appearance: overweight Orientation/consciousness: patient oriented x3 Limitations: no limitations Neuro General: patient oriented x3 Assessment & Plan Assessment & Plan (1) Opioid use disorder, moderate, in early remission, dependence: Code(s): F11.21 - Opioid dependence, in remission Category: Medical Plan: continue suboxone at current dose follow up 6 weeks (after Holiday) then back to 3-4 week schedule encouraged to call office if needed before next appt [facility] Medical History Marijuana dependence Hypertension Hyperlipidemia Diabetes mellitus Morbid obesity Breast calcification, left GERD (gastroesophageal reflux disease) Surgical History Hx of dilation and curettage History of esophagogastroduodenoscopy (EGD) Hx of colonoscopy History of cholecystectomy Family History Father Mental health disorder Mother Drug abuse Emphysema lung COPD (chronic obstructive pulmonary disease) Heart disease Mental health disorder Substance use disorder Sister Thyroid cancer Maternal Grandfather Colon cancer Maternal Grandmother Colon cancer Social History Housing: Apartment Alcohol intake: never Patient Tobacco Use Status: Current everyday Tobacco user Cigarette Packs Per Day: 0.25 Cigarettes Per Day: 3 e-Cigarette/Vaping Use: Never Used Second Hand Smoke Exposure: Yes Substance Use Type: Marijuana service: No Current occupational status: employed 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
== END 2024-07-24 13:24 | disposition home or self-care (01) ==
PROVIDERS: PCP Physician Assistant; Visit Provider Nurse Practitioner Psychiatric/Mental Health
DX: F11.21 Opioid dependence, in remission (principal)
CPT/HCPCS: 99213

== ENCOUNTER → 2024-07-24 13:01 | Outpatient (BNVA) | payer MEDICAID, SELFPAY | PROVIDERS: PCP Physician Assistant; Visit Provider Nurse Practitioner Psychiatric/Mental Health | DX: F11.21 Opioid dependence, in remission (principal) | CPT/HCPCS: 99212 ==

== ENCOUNTER 2024-09-11 11:06 | Outpatient (AMB) | payer MEDICAID, SELFPAY ==
--- NOTE | 2024-09-11 11:12 | A.OFFVISCC_ITS ---
Intake Visit Reasons: MAT Allergies ibuprofen [IBUPROFEN] Allergy (Unknown, Verified 05/23/24 11:08) SWELLING, face swelling seafood Allergy (Unknown, Verified 05/23/24 11:08) Anaphylaxis dulaglutide [From Trulicity] Adverse Reaction (Intermediate, Verified 05/23/24 11:08) GI upset HPI HPI MAT: Details: Patient presents for follow up Currently prescribed Suboxone 12mg daily Denies any issues with medication Still having issues with insulin coverage working more hours no issues with sleep no concerns at this time Review of Systems Const Reports as per HPI and Reports no additional complaints Physical Exam Const General: cooperative, healthy appearing and well groomed Nutritional Appearance: overweight Orientation/consciousness: patient oriented x3 Limitations: no limitations Neuro General: patient oriented x3 PFSH Medical History Marijuana dependence Hypertension Hyperlipidemia Diabetes mellitus Morbid obesity Breast calcification, left GERD (gastroesophageal reflux disease) Surgical History Hx of dilation and curettage History of esophagogastroduodenoscopy (EGD) Hx of colonoscopy History of cholecystectomy Family History Father Mental health disorder Mother Drug abuse Emphysema lung COPD (chronic obstructive pulmonary disease) Heart disease Mental health disorder Substance use disorder Sister Thyroid cancer Maternal Grandfather Colon cancer Maternal Grandmother Colon cancer Social History Housing: Apartment Alcohol intake: never Patient Tobacco Use Status: Current everyday Tobacco user Cigarette Packs Per Day: 0.25 Cigarettes Per Day: 3 e-Cigarette/Vaping Use: Never Used Second Hand Smoke Exposure: Yes Substance Use Type: Marijuana service: No Current occupational status: employed 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
== END 2024-09-11 11:28 | disposition home or self-care (01) ==
PROVIDERS: PCP Physician Assistant; Visit Provider Nurse Practitioner Psychiatric/Mental Health
DX: F11.21 Opioid dependence, in remission (principal)
CPT/HCPCS: 99213

== ENCOUNTER → 2024-09-11 11:06 | Outpatient (BNVA) | payer MEDICAID, SELFPAY | PROVIDERS: PCP Physician Assistant; Visit Provider Nurse Practitioner Psychiatric/Mental Health | DX: F11.21 Opioid dependence, in remission (principal) | CPT/HCPCS: 99212 ==

== ENCOUNTER 2024-10-04 09:33 | Outpatient (AMB) | payer OTHER, SELFPAY ==
--- NOTE | 2024-10-04 09:37 | A.OFFVISCC_ITS ---
Intake Visit Reasons: MAT Allergies ibuprofen [IBUPROFEN] Allergy (Unknown, Verified 05/23/24 11:08) SWELLING, face swelling seafood Allergy (Unknown, Verified 05/23/24 11:08) Anaphylaxis dulaglutide [From Trulicity] Adverse Reaction (Intermediate, Verified 05/23/24 11:08) GI upset HPI HPI MAT: Details: Patient presents for OUD treatment follow up Currently prescribed Subooxne 12mg QD Tolerating current dose Denies any side effects Review of Systems Const Reports as per HPI and Reports no additional complaints Physical Exam Const General: cooperative, healthy appearing and well groomed Nutritional Appearance: overweight Orientation/consciousness: patient oriented x3 Limitations: no limitations Neuro General: patient oriented x3 [facility] [place] Medical History Marijuana dependence Hypertension Hyperlipidemia Diabetes mellitus Morbid obesity Breast calcification, left GERD (gastroesophageal reflux disease) Surgical History Hx of dilation and curettage History of esophagogastroduodenoscopy (EGD) Hx of colonoscopy History of cholecystectomy Family History Father Mental health disorder Mother Drug abuse Emphysema lung COPD (chronic obstructive pulmonary disease) Heart disease Mental health disorder Substance use disorder Sister Thyroid cancer Maternal Grandfather Colon cancer Maternal Grandmother Colon cancer Social History Housing: Apartment Alcohol intake: never Patient Tobacco Use Status: Current everyday Tobacco user Cigarette Packs Per Day: 0.25 Cigarettes Per Day: 3 e-Cigarette/Vaping Use: Never Used Second Hand Smoke Exposure: Yes Substance Use Type: Marijuana service: No Current occupational status: employed 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
--- OUTSIDE RECORDS SUMMARY | 2024-10-04 10:10 | XMS_ITS | Clinical Summary ---
Author Organization [facility] Address [address] [place] [address] Care Team Providers Care Personnel Coordinator Name Role Phone Jeni Marroquin DO Primary Care Provider Allergies Active Allergy Reactions Criticality Noted Date Comments Ibuprofen Swelling Medium 02/11/2018 Seafood Anaphylaxis High 02/12/2018 Medications Medication Sig Dispensed Refills Start Date End Date Status DULoxetine (CYMBALTA) 20 MG capsule Take 20 mg by mouth daily. Active losartan (COZAAR) 25 MG tablet Take 25 mg by mouth daily. Active OMEprazole (PriLOSEC) 40 MG capsule Take 40 mg by mouth daily. Active oxyCODONE (ROXICODONE) 5 MG immediate release tabletIndications:A cute cholecystitis 1-2 tabs (5-10 mg) every 4-6 hours for postoperative pain 25 tablet 02/13/2018 Active Active Problems Problem Noted Date Diagnosed Date Cholelithiasis and acute cholecystitis without o bstruction 02/11/2018 Anxiety 02/11/2018 Depression 02/11/2018 Diabetes 02/11/2018 Hypertension 02/11/2018 Acute cholecystitis 02/11/2018 Social History Tobacco Use Types Packs/Day Years Used Date Smoking Tobacco: Never Assessed Sex and Gender Information Value Date Recorded Sex Assigned at Not on file Gender Identity Not on file Sexual Orientation Not on file Last Filed Vital Signs Vital Sign Reading Time Taken Comments Blood Pressure 128/83 02/13/2018 4:17 PM EDT Pulse 102 02/13/2018 4:17 PM EDT Temperature 37.4 ??C (99.4 ??F) 02/13/2018 4:17 PM ED T Respiratory Rate 18 02/13/2018 4:17 PM EDT Oxygen Saturation 96% 02/13/2018 4:17 PM EDT Inhaled Oxygen Concentration - - Weight 116 kg (256 lb) 02/12/2018 1:39 PM EDT Height 157.5 cm (5' 2 ) 02/12/2018 1:39 PM EDT Body Mass Index 46.82 02/12/2018 1:39 PM EDT Plan of Treatment Health Maintenance Due Date Last Done Comments Hepatitis C Virus Screening 1982 Foot Exam 02/24/1992 Lipid Panel 02/24/1992 Ophthalmology Exam 02/24/1992 HIV Screening 1995 Microalbumin/Creatinine Rati o Urine 02/24/2000 DTaP/Tdap/Td Vaccines (1 - Tdap) 2001 Hepatitis B Vaccines (1 of 3 - 19+ 3-dose series) 2001 Pneumococcal Vaccine: Pediatric (0-5 Years) and At-Risk Patients (6 to 49 Years) (1 of 2 - PCV) 2001 Pap Smear (Ages 21-65) 2003 Hemoglobin A1C 08/14/2018 02/12/2018 Creatinine with GFR 02/13/2019 02/13/2018, 02/12/2018, 02/11/2018 Mammogram 2022 Influenza Vaccine 04/04/2024 COVID-19 Vaccine ( - 2023-2 5 season) 2024 HPV Vaccines Aged Out No longer eligi ble based on patient's age to complete this topic Procedures Procedure Name Priority Date/Time Associated Diagnosis Comments COMPREHENSIVE METABOLIC PANEL Routine 02/13/2018 5:51 AM EDT HEMOGLOBIN A1C WITH ESTIMATED AVERAGE GLUCOSE Routine 02/12/2018 5:23 AM EDT from Last 3 Months or Most Recently Relevant to Health Maintenance Results * (ABNORMAL) Comprehensive Metabolic Panel (02/13/2018 5:51 AM EDT) Glucose 150(H) 65 - 99 mg/dL [facility] Blood Urea Nitrogen (BUN) 6(L) 8 - 21 mg/dL [facility] Creatinine 0.6 0.4 - 1.1 mg/dL [facility] eGFR >60 >59 [facility] Comment:MDRD in mL/min/1.73 sq meters. GFR - >60 >59 [facility] Comment:MDRD in mL/min/1.73 sq meters. Sodium 139 136 - 145 mmol/L [facility] Potassium 3.5 3.4 - 5.3 mmol/L [facility] Chloride 100 98 - 107 mmol/L [facility] CO2 25 22 - 33 mmol/L [facility] Calcium 8.7 8.7 - 10.5 mg/dL [facility] Alkaline Phosphatase 78 32 - 122 U/L [facility] Aspartate Aminotrans (AST) 67(H) 10 - 50 U/L [facility] Alanine Aminotrans (ALT) 66(H) 10 - 50 U/L [facility] Bilirubin, Total 0.5 0.2 - 1.0 mg/dL [facility] Protein, Total 7.1 6.3 - 8.3 g/dL [facility] Albumin 3.8 3.5 - 5.0 g/dL [facility] BUN/Creatinine Ratio 10 10.0 - 25.0 Ratio [facility] Globulin 3.3 1.5 - 3.9 g/dL [facility] Albumin/Globulin Ratio 1.2 1.0 - 3.0 Ratio [facility] Anion Gap 14 7 - 17 [facility] Blood specimen (specimen) Blood specimen / Unknown 02/13/2018 5:51 AM EDT 02/13/2018 6:07 AM EDT Niko Love MD LAB BLOOD ORDERABLES [facility] * (ABNORMAL) Hemoglobin A1c with Estimated Average Glucose (02/12/2018 5:23 AM EDT) Hemoglobin A1C 6.7(H) <5.7 % [facility] Comment: A1c% ? Interpretation 5.7 - 6.0 ?Increase risk of diabetes 6.1 - 6.4 ?Higher risk of diabetes > or = 6.5 ?? Consistent with diabetes Diabetes Care, 33(Supp 1):S1-S61, 2010 Estimated Average Glucose 146 mg/dL [facility] Comment:Performed at [facility], [place] license No. [id number] CLIA No. [id number] Blood specimen (specimen) Blood specimen / Unknown 02/12/2018 5:23 AM EDT 02/12/2018 5:58 AM EDT Hank ALEMAN LAB BLOOD ORDERABLES [facility] from Last 3 Months or Most Recently Relevant to Health Maintenance Advance Directives * Full Code (Latest Code Status on File) Date Activated Date Inactivated Comments 02/12/2018 5:27 PM * Full Code Date Activated Date Inactivated Comments 02/11/2018 11:11 PM 02/12/2018 5:27 PM Care Teams Personnel Coordinator Relationship Specialty Start Date End Date Jeni Marroquin DO [address] [address] PCP - General 02/11/18
--- OUTSIDE RECORDS SUMMARY | 2024-10-04 10:10 | XMS_ITS | Clinical Summary ---
Author Organization [facility] Address [address] [place] [address] Care Team Providers Care Government Contracts Manager Name Role Phone Unavailable Primary Care Provider Unavailabl e Social History Tobacco Use Types Packs/Day Years Used Date Smoking Tobacco: Never Assessed Sex and Gender Information Value Date Recorded Sex Assigned at Not on file Gender Identity Not on file Sexual Orientation Not on file Plan of Treatment Not on file
== END 2024-10-04 09:50 | disposition home or self-care (01) ==
LOC: HO.HCC 09:33
PROVIDERS: PCP Physician Assistant; Visit Provider Nurse Practitioner Psychiatric/Mental Health
DX: F11.21 Opioid dependence, in remission (principal)
CPT/HCPCS: 99213

== ENCOUNTER → 2024-10-04 09:33 | Outpatient (BNVA) | payer OTHER, SELFPAY | PROVIDERS: PCP Physician Assistant; Visit Provider Nurse Practitioner Psychiatric/Mental Health | DX: F11.21 Opioid dependence, in remission (principal); Z51.81 Encounter for therapeutic drug level monitoring | CPT/HCPCS: 99212 ==

== ENCOUNTER 2024-10-30 13:57 | Outpatient (AMB) | payer OTHER, SELFPAY ==
--- NOTE | 2024-10-30 14:07 | MHC.PC.OV ---
Vital Signs 10/30/24 14:09 Height 5 ft 1 in Weight 304 lb 8 oz BMI 57.5 BP 140/74 H Blood Pressure Location Lt brachial Position Sitting Pulse 88 Pulse Source Pulse Oximeter Temp 97.1 F Temp Source Temporal Artery Scan Pulse Oximetry (%) 95 Oxygen Delivery Method Room Air Intake Visit Reasons: f/u DMII - see comments Intake Note: Patient is here to follow up on DM. Stock Preparation Supervisor Required: No Entry Processor: Not Required per policy Accompanied by: Self / Same As Patient Allergies ibuprofen [IBUPROFEN] Allergy (Unknown, Verified 10/30/24 14:18) SWELLING, face swelling seafood Allergy (Unknown, Verified 10/30/24 14:18) Anaphylaxis dulaglutide [From Trulicity] Adverse Reaction (Intermediate, Verified 10/30/24 14:18) GI upset Medication List - Last Reconciled 10/30/24 by Alden Flores PA-C alcohol swabs (Alcohol Prep Pads) 1 pad topical TID 90 days atorvastatin 40 mg PO DAILY 90 days blood pressure monitor (Blood Pressure Kit) As directed blood sugar diagnostic (FreeStyle Lite Strips) USE 1 STRIP DIRECTED 3 TIMES A DAY FOR 30 DAYS TESTING TWICE PER DAY blood-glucose meter,continuous (FreeStyle Js 3 [place]) As directed blood-glucose sensor (FreeStyle Js 3 Sensor device) As directed buprenorphine-naloxone 12-3 mg (Suboxone) 1 film buccal Q24H cholecalciferol (vitamin D3) 1,250 mcg PO QWEEK 8 weeks clotrimazole 1% 1 appl topical BID 30 days CPAP (CPAP Machine/Device) As directed ferrous sulfate 325 mg PO DAILY gabapentin 600 mg PO BID 30 days insulin glargine (Lantus Solostar U-100 Insulin) 65 units subcut QAM lancets (FreeStyle Lancets) As directed losartan 50 mg PO DAILY 90 days Novolog FlexPen U-100 Insulin (insulin aspart U-100) 30 units (0.3 mL) subcut TID 30 days NS omeprazole 40 mg PO DAILY 90 days pen needle, diabetic (BD Lis 2nd Gen Pen Needle) As directed safety needles (BD Eclipse) As directed Tobacco use date assessed: 10/30/24 Dental Screening Dental Screen Date: 10/30/24 Did you have a dental visit in the last 12 months?: No Did you have a dental problem in the last 6 months where you did not have access to dental care?: No Was dental information given to patient?: No HPI f/u DMII - see comments HPI Details Patient is a 44-year-old female here today for f/u visit. ? Patient has a past medical history significant for morbid obesity, type 2 diabetes, ANTONIO, hyperlipidemia, opiate dependency, hypertension. Obstructive sleep apnea: Recently underwent a home sleep study that did show mild obstructive sleep apnea with some hypoxemia night. Reports from pulmonology say CPAP would be helpful. ? .. Type 2 diabetes:? Type 2 diabetes has been uncontrolled, has not been able to get Ozempic from the pharmacy due to prior authorization needed She does admit to some dietary indiscretion. She has not been using much of her preprandial insulin as well PLAN: Will try an alternative GLP 1 (Mounjaro) . ?. .. Hyperlipidemia: Most recent lipid panel showing slightly elevated LDL at 122. She has restarted statin therapy. Will recheck lipid panel before next office visit. Goal LDL to be below 100 .. Obesity:? Unfortunately gained weight since last office visit. Has been able to reduce her weight with dietary modifications.? She still understands her BMI is well over 30 will work on being more physically active and continue dietary modifications to help lose weight. . Hypertension:? Blood pressure controlled today in office.? Patient denies any chest discomfort, headaches, dizziness or shortness of breath on exertion PFSH Medical History Marijuana dependence Hypertension Hyperlipidemia Diabetes mellitus Morbid obesity Breast calcification, left GERD (gastroesophageal reflux disease) Surgical History Hx of dilation and curettage History of esophagogastroduodenoscopy (EGD) Hx of colonoscopy History of cholecystectomy Family History Father Mental health disorder Mother Drug abuse Emphysema lung COPD (chronic obstructive pulmonary disease) Heart disease Mental health disorder Substance use disorder Sister Thyroid cancer Maternal Grandfather Colon cancer Maternal Grandmother Colon cancer Social History Housing: Apartment Alcohol intake: never Patient Tobacco Use Status: Former Tobacco user Tobacco use type: Cigarette Cigarette Packs Per Day: 0.25 Cigarettes Per Day: 3 e-Cigarette/Vaping Use: Never Used Second Hand Smoke Exposure: Yes Substance Use Type: Marijuana service: No Current occupational status: employed 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 1. Little interest or pleasure in doing things: not at all 2. Feeling down, depressed, or hopeless: not at all 3. Trouble falling or staying asleep, or sleeping too much: not at all 4. Feeling tired or having little energy: not at all 5. Poor appetite or overeating: not at all 6. Feeling bad about yourself - or that you are a failure or have let yourself or your family down: not at all 7. Trouble concentrating on things, such as reading the newspaper or watching television: not at all 8. Moving or speaking so slowly that other people could have noticed. Or the opposite - being so fidgety or restless that you have been moving around a lot more than usual: not at all 9. Thoughts that you would be better off or of hurting yourself in some way: not at all Total score: 0 Depression Screening Interpretation: Negative Depression Screening Done: Yes 37739 - PHQ-9 Billing: Yes Source: Developed by Drs. Nate Vences, Rosa Velez, Buddy Jensen and colleagues, with an educational ale from [employer]. Thrive Questionnaire Date Thrive assessed: 10/30/24 I am a: Patient What is your living situation today?: I have a steady place to live Within the past 12 months, did the food you bought not last and you didn't have the money to get more?: Never true Within the past 12 months, did you worry whether your food would run out before you got money to buy more?: Never true Do you have trouble paying for medicines?: No Do you have trouble getting transportation to medical appointments?: No Do you have trouble paying your heating and electricity bill?: No Do you have trouble taking care of your child, family member or friend?: No Do you have trouble with day-to-day activities such as bathing, preparing meals, shopping, managing finances, etc.?: No Are you currently unemployed and looking for a job?: No Are you interested in more education?: No Please select the resources that you would like help with: None Currently or been in a relationship where the following occur: No concerns reported THRIVE Score: 0 AUDIT C Alcohol Use Questionnaire (AUDIT-C) 1. How often do you have a drink containing alcohol?: Never Total Score: 0 LUIS-7 AMB Questionnaire LUIS-7 Date LUIS - 7 assessed: 10/30/24 Feeling nervous, anxious, or on edge: 0 = Not at all Not being able to stop or control worryin = Not at all Worrying too much about different things: 0 = Not at all Trouble relaxin = Not at all Being so restless that it is hard to sit still: 0 = Not at all Becoming easily annoyed or irritable: 0 = Not at all Feeling afraid as if something awful might happen: 0 = Not at all Total LUIS-7 score (0-4 normal; 5-9 mild; 10-14 moderate; 15-21 severe): 0 Source: Developed by Drs. Nate Vences, Rosa Velez, Buddy Jensen and colleagues, with an educational ale from [employer]. Physical exam (Primary Care) Vital Signs: Last Vital Signs Temp 97.1 F 10/30/24 14:09 Pulse 88 10/30/24 14:09 BP 140/74 H 10/30/24 14:09 Pulse Ox 95 10/30/24 14:09 Oxygen Delivery Method Room Air 10/30/24 14:09 BMI result Body Mass Index 57.5 BMI Assessment/Plan discussion: High BMI High, discussed plan: lifestyle, weight reduction, dietary and physical activity Tobacco/Smoking Status: Tobacco use Status Tobacco use date assessed 10/30/24 10/30/24 14:18 Patient Tobacco Use Status Former Tobacco user 10/30/24 14:18 Tobacco use type Cigarette 10/30/24 14:18 e-Cigarette/Vaping Use Never Used 10/30/24 14:07 PHQ-9: PHQ-9 Score PHQ-9: Total score 0 10/30/24 15:11 Depression Screening Interpretation: Negative Thrive Assessment: Date of Thrive Assessment Date Thrive assessed 10/30/24 10/30/24 14:18 Currently or been in a relationship where the following occur: No concerns reported Results AMB Hemoglobin A1c AMB Hemoglobin A1c 13.6 % Last Edit by DAKSHA Russell on 10/30/24 14:19 Immunizations pneumoc 20-artie conj-dip cr(PF) 0.5 mL IM syringe Performing Provider: Alden Flores PA-C [facility] Administered by: Liz Hernandez RN on 10/30/24 15:10 Dose Route Admin Location Dispensed Lot Number Expiration Date NDC Process Steward 0.5 mL IM Left Deltoid 0.5 mL [id number] 01/01/26 [id number] [employer] VIS Given Date VIS Provided VIS Publication Date 10/30/24 Single Vaccine 21 Eligibility Eligibility Date Funding Source Not [facility] Eligible 10/30/24 Private Results Reviewed Results Reviewed: Laboratory Last Values Hgb A1c (Clinic) 13.6 % (4.0-6.0) H 10/30/24 14:07 Coding Level of Care Code Est Pt Level 4 (94371) Diagnoses Opioid use disorder, moderate, in early remission, dependence F11.21 Type 2 diabetes mellitus with diabetic polyneuropathy, with long-term current use of insulin E11.42; Z79.4 Diabetes mellitus complication detail: with polyneuropathy Diabetes mellitus complication status: with neurologic complications Diabetes mellitus chcf insulin use: with terminal operator use Diabetes mellitus type: type 2 MDD (major depressive disorder), recurrent episode, moderate F33.1 Opioid dependence in remission F11.21 Substance use status: in remission Primary hypertension I10 Hypertension type: primary hypertension Mixed hyperlipidemia E78.2 Hyperlipidemia type: mixed hyperlipidemia Additional Codes PHQ-9 - 39466 - PHQ-9 Billing: Yes ([id number]) Assessment & Plan Assessment & Plan (1) Opioid use disorder, moderate, in early remission, dependence: Code(s): F11.21 - Opioid dependence, in remission Category: Medical Plan: Patient continues to follow [facility] here in [place] in his continued on Suboxone. 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 Today's A1c above 13. Will continue current dose Lantus and start using her preprandial insulin more regularly to gain some glycemic control. Will try to set up with a 2nd opinion from endocrinology [place]. Will try an alternative GLP 1 in try for prior authorization has she had some better glycemic control with GLP 1. Goal A1c is to be below 7.0 (3) MDD (major depressive disorder), recurrent episode, moderate: Code(s): F33.1 - Major depressive disorder, recurrent, moderate Category: Medical Plan: Patient's PHQ-9 score 0, has a history of depression though seems to be fairly stable. 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 (5) Hypertension: Code(s): I10 - Essential (primary) hypertension Category: Medical Qualifiers: Hypertension type: primary hypertension Qualified Code(s): I10 - Essential (primary) hypertension Plan: Patient's blood pressure slightly elevated today in office. She does monitor blood pressure at home does report better readings 120-130 systolic. Will continue her current dose of losartan with goal blood pressure to remain below 140/90. Will consider increasing losartan if blood pressures remain above 140 systolic (6) HLD (hyperlipidemia): Code(s): E78.5 - Hyperlipidemia, unspecified Category: Medical Qualifiers: Hyperlipidemia type: mixed hyperlipidemia Qualified Code(s): E78.2 - Mixed hyperlipidemia Plan: Patient continues on atorvastatin 40 mg. Most recent lipid panel showing good control over total cholesterol and LDL. 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42 - Type 2 diabetes mellitus with diabetic polyneuropathy, Z79.4 - [facility] (current) use of insulin Medications: New tirzepatide for 4 weeks 2.5 mg (0.5 mL) subcut QWEEK 2 mL 1RF 4 weeks E11.42 - Type 2 diabetes mellitus with diabetic polyneuropathy, Z79.4 - middle or intermediate school principal (current) use of insulin Changed From insulin glargine (Lantus Solostar U-100 Insulin) 54 units (0.54 mL) subcut QAM 30 days 15 mL 1RF E11.9 - Type 2 diabetes mellitus without complications To insulin glargine (Lantus Solostar U-100 Insulin) 65 units subcut QAM E11.9 - Type 2 diabetes mellitus without complications From ferrous sulfate 325 mg PO DAILY N93.9 - Abnormal uterine and vaginal bleeding, unspecified To ferrous sulfate 325 mg PO DAILY 90 tabs 1RF 90 days N93.9 - Abnormal uterine and vaginal bleeding, unspecified Refilled cholecalciferol (vitamin D3) 1,250 mcg PO QWEEK 8 caps 1RF 8 weeks N93.9 - Abnormal uterine and vaginal bleeding, unspecified Patient Instructions: Goal: A1c to be below 7.0, LDL to be below 100 :Barriers: Adherence to physical activity and healthy eating habits
[2024-10-30 14:09] VITALS: BP 140/74; PULSE 88; TEMP 36.2; O2SAT 95; BMI 57.5
--- OUTSIDE RECORDS SUMMARY | 2024-10-30 17:10 | XMS_ITS | Clinical Summary ---
Author Organization [facility] Address [address] [place] [address] Care Team Providers Care Commodity Broker Name Role Phone Unavailable Primary Care Provider Unavailabl e Social History Tobacco Use Types Packs/Day Years Used Date Smoking Tobacco: Never Assessed Sex and Gender Information Value Date Recorded Sex Assigned at Not on file Gender Identity Not on file Sexual Orientation Not on file Plan of Treatment Not on file
--- OUTSIDE RECORDS SUMMARY | 2024-10-30 17:10 | XMS_ITS | Clinical Summary ---
Author Organization [facility] Address [address] [place] [address] Care Team Providers Care It Infrastructure Engineer Name Role Phone Jeni Marroquin DO Primary Care Provider [phone] Allergies Active Allergy Reactions Criticality Noted Date [...] Glucose 146 mg/dL HOSPITAL LAB Comment:Performed at [facility], [place] license No. [id number] CLIA No. [id number] Blood specimen (specimen) Blood specimen / Unknown [...] 11:11 PM 02/12/2018 5:27 PM Care Teams It Infrastructure Engineer Relationship Specialty Start Date End Date Jeni Marroquin DO [address] [address] PCP - General 02/11/18
== END 2024-10-30 15:02 | disposition home or self-care (01) ==
PROVIDERS: PCP Physician Assistant; Visit Provider Physician Assistant
DX: F11.21 Opioid dependence, in remission (principal); E11.42 Type 2 diabetes mellitus with diabetic polyneuropathy; Z79.4 Long term (current) use of insulin; F33.1 Major depressive disorder, recurrent, moderate; I10 Essential (primary) hypertension; E78.2 Mixed hyperlipidemia

== ENCOUNTER → 2024-10-30 13:57 | Outpatient (BNVA) | payer OTHER, SELFPAY | PROVIDERS: PCP Physician Assistant; Visit Provider Physician Assistant | DX: Z23 Encounter for immunization (principal); F11.21 Opioid dependence, in remission; E11.42 Type 2 diabetes mellitus with diabetic polyneuropathy; F33.1 Major depressive disorder, recurrent, moderate; I10 Essential (primary) hypertension; E78.2 Mixed hyperlipidemia; Z79.4 Long term (current) use of insulin | CPT/HCPCS: 83036; 90471; 90677; 96127; 99212 ==

== ENCOUNTER 2024-12-04 13:02 | Outpatient (AMB) | payer OTHER, SELFPAY ==
--- NOTE | 2024-12-02 14:20 | A.OFFVIS_ITS ---
Vital Signs 12/04/24 13:32 Height 5 ft 1 in Weight 310 lb BMI 58.6 Pulse 90 Pulse Source Pulse Oximeter Pulse Oximetry (%) 98 Oxygen Delivery Method Room Air Intake Visit Reasons: mat visit Allergies ibuprofen [IBUPROFEN] Allergy (Unknown, Verified 12/04/24 13:33) SWELLING, face swelling seafood Allergy (Unknown, Verified 12/04/24 13:33) Anaphylaxis dulaglutide [From Trulicity] Adverse Reaction (Intermediate, Verified 12/04/24 13:33) GI upset HPI HPI mat visit: Details: She has been doing well on 12 daily. She has trouble giving urine. Her PCP is Orlin Flores. She reports not using opioid medications since last year at least. [facility] Medical History Marijuana dependence Hypertension Hyperlipidemia Diabetes mellitus Morbid obesity Breast calcification, left GERD (gastroesophageal reflux disease) Surgical History Hx of dilation and curettage History of esophagogastroduodenoscopy (EGD) Hx of colonoscopy History of cholecystectomy Family History Father Mental health disorder Mother Drug abuse Emphysema lung COPD (chronic obstructive pulmonary disease) Heart disease Mental health disorder Substance use disorder Sister Thyroid cancer Maternal Grandfather Colon cancer Maternal Grandmother Colon cancer Social History Housing: Apartment Alcohol intake: never Patient Tobacco Use Status: Former Tobacco user Tobacco use type: Cigarette Cigarette Packs Per Day: 0.25 Cigarettes Per Day: 3 e-Cigarette/Vaping Use: Never Used Second Hand Smoke Exposure: Yes Substance Use Type: Marijuana service: No Current occupational status: employed 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, 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 Code(s): F11.21 - Opioid dependence, in remission Category: Medical Plan Continue same dose. See in one month, refill given 12/3 daily one month Orders: Orders 2 Complete Blood Count Auto Diff Today F11.21 - Opioid dependence, in remission Basic Metabolic Panel Today F11.21 - Opioid dependence, in remission Hepatitis B Surface Antigen Today F11.21 - Opioid dependence, in remission Hepatitis A IgG Today F11.21 - Opioid dependence, in remission Syphilis Screen Today F11.21 - Opioid dependence, in remission Liver Panel Today F1.21 - Opioid dependence, in remission HIV Ab/Ag Today F1.21 - Opioid dependence, in remission Hepatitis C Antibody Reflex Today F11.21 - Opioid dependence, in remission Hepatitis B Core Antibody Today F11.21 - Opioid dependence, in remission Hepatitis B Surface Ab Qnt Today F11.21 - Opioid dependence, in remission T Spot TB Today F11.21 - Opioid dependence, in remission Medications: New buprenorphine-naloxone 12-3 mg (Suboxone) 1 film buccal Q24H 30 ea 0RF 30 days Refilled buprenorphine-naloxone 12-3 mg (Suboxone) 1 film buccal Q24H 30 ea 1RF Coding Level of Care Code Est Pt Level 3 (53599) Diagnoses Opioid use disorder, moderate, in early remission, dependence F11.21
[2024-12-04 13:32] VITALS: PULSE 90; O2SAT 98; BMI 58.6
--- OUTSIDE RECORDS SUMMARY | 2024-12-04 15:40 | XMS_ITS | Clinical Summary ---
Author Organization [facility] Address [address] [place] [address] Care Team Providers Care Public Health Veterinarian Name Role Phone Jeni Marroquin DO Primary Care Provider [phone] Allergies Active Allergy Reactions Criticality Noted Date [...] Glucose 146 mg/dL HOSPITAL LAB Comment:Performed at [facility], [place] license No. [id number] CLIA No. [id number] Blood specimen (specimen) Blood specimen / Unknown [...] 11:11 PM 02/12/2018 5:27 PM Care Teams Public Health Veterinarian Relationship Specialty Start Date End Date Jeni Mraroquin DO [address] [address] PCP - General 02/11/18
--- OUTSIDE RECORDS SUMMARY | 2024-12-04 15:40 | XMS_ITS | Clinical Summary ---
Author Organization [facility] Address [address] [place] [address] Care Team Providers Care Pig Sticker Name Role Phone Unavailable Primary Care Provider Unavailabl e Social History Tobacco Use Types Packs/Day Years Used Date Smoking Tobacco: Never Assessed Sex and Gender Information Value Date Recorded Sex Assigned at Not on file Gender Identity Not on file Sexual Orientation Not on file Plan of Treatment Not on file
== END 2024-12-04 14:06 | disposition home or self-care (01) ==
LOC: HO.HID 13:03
PROVIDERS: PCP Physician Assistant; Visit Provider Internal Medicine
DX: F11.21 Opioid dependence, in remission (principal)
CPT/HCPCS: 99213

== ENCOUNTER → 2024-12-04 13:02 | Outpatient (BNVA) | payer OTHER, SELFPAY | PROVIDERS: PCP Physician Assistant; Visit Provider Internal Medicine | DX: F11.21 Opioid dependence, in remission (principal) | CPT/HCPCS: 99212 ==

== ENCOUNTER 2025-01-03 11:34 | Outpatient (AMB) | payer OTHER, SELFPAY ==
--- NOTE | 2025-01-03 11:38 | A.OFFVIS_ITS ---
Vital Signs 01/03/25 11:44 Pulse 90 Pulse Source Pulse Oximeter Pulse Oximetry (%) 97 Oxygen Delivery Method Room Air Intake Visit Reasons: MAT visit Allergies ibuprofen [IBUPROFEN] Allergy (Unknown, Verified 01/03/25 11:44) SWELLING, face swelling seafood Allergy (Unknown, Verified 01/03/25 11:44) Anaphylaxis dulaglutide [From [facility]] Adverse Reaction (Intermediate, Verified 01/03/25 11:44) GI upset HPI HPI MAT visit: Details: She is doing well on 12/3 daily. She has no concerns except is getting bill. [facility] Medical History Marijuana dependence Hypertension Hyperlipidemia Diabetes mellitus Morbid obesity Breast calcification, left GERD (gastroesophageal reflux disease) Surgical History Hx of dilation and curettage History of esophagogastroduodenoscopy (EGD) Hx of colonoscopy History of cholecystectomy Family History Father Mental health disorder Mother Drug abuse Emphysema lung COPD (chronic obstructive pulmonary disease) Heart disease Mental health disorder Substance use disorder Sister Thyroid cancer Maternal Grandfather Colon cancer Maternal Grandmother Colon cancer Social History Housing: Apartment Alcohol intake: never Patient Tobacco Use Status: Former Tobacco user Tobacco use type: Cigarette Cigarette Packs Per Day: 0.25 Cigarettes Per Day: 3 e-Cigarette/Vaping Use: Never Used Second Hand Smoke Exposure: Yes Substance Use Type: Marijuana service: No Current occupational status: employed 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, 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 Female Reproductive History Menstrual Age of Menarche: 13 Review of Systems Const All systems reviewed & are unremarkable except as noted in HPI and below Physical Exam Vital Signs: Last Vital Signs Pulse 90 01/03/25 11:44 Pulse Ox 97 01/03/25 11:44 Oxygen Delivery Method Room Air 01/03/25 11:44 Const General: cooperative Results AMB 14 Panel Urine Drug Screen Urine Marijuana (THC) Positive Last Edit by Cricket Orta CMA on 01/03/25 11:46 Urine Cocaine Negative Last Edit by Cricket Orta CMA on 01/03/25 11:46 Urine Morphine Negative Last Edit by Cricket Orta CMA on 11:46 Urine Methamphetamine Negative Last Edit by Cricket Orta, BEKA on 01/03/25 11:46 Urine Amphetamine Negative Last Edit by Cricket Orta, BEKA on 01/03/25 11:46 Urine Benzodiazepine Negative Last Edit by Cricket Orta CMA on 01/03/25 11:46 Urine Barbiturates Negative Last Edit by Cricket Orta, BEKA on 01/03/25 11:46 Urine Methadone Negative Last Edit by Cricket Orta CMA on 11:46 Urine Buprenorphine Positive Last Edit by Cricket Orta CMA on 01/03/25 11:46 Urine Tricyclic Antidepressant Negative Last Edit by Cricket Orta CMA on 01/03/25 11:46 Urine MDMA Negative Last Edit by Cricket Orta CMA on 01/03/25 11 :46 Urine Oxycodone Negative Last Edit by Cricket Orta CMA on 11:46 Urine Phencyclidine Negative Last Edit by Cricket Orta CMA on 01/03/25 11:46 Urine Propoxyphene Negative Last Edit by Cricket Orta CMA on 01/03/25 11:46 Results Reviewed Results Reviewed: Laboratory Last Values POC Urine Buprenorphine Positive 01/03/25 11:39 POC Urine Morphine Negative 01/03/25 11:39 POC Urine Oxycodone Negative 01/03/25 11:39 POC Urine Methadone Negative 01/03/25 11:39 POC Urine Propoxyphene Negative 01/03/25 11:39 POC Urine Barbiturates Negative 01/03/25 11:39 POC U Tricyclic Antidpr Negative 01/03/25 11:39 POC Urine PCP Negative 01/03/25 11:39 POC Ur Amphetamines Negative 01/03/25 11:39 POC Ur Methamphetamine Negative 01/03/25 11:39 POC Urine MDMA Negative 01/03/25 11:39 POC Ur Benzodiazepine Negative 01/03/25 11:39 POC Urine Cocaine Negative 01/03/25 11:39 POC Ur Marijuana (THC) Positive 01/03/25 11:39 Assessment & Plan Assessment & Plan (1) Opioid use disorder, moderate, in early remission, dependence: Comment: She is doing well and has no concerns. Code(s): F11.21 - Opioid dependence, in remission Category: Medical Plan: Would continue buprenorphine 12/3 daily,one month and one refill. See in two months. Will order counseling. Check Hepatitis C and HIV. Orders: Orders AMB 14 Panel Urine Drug Screen Today Z51.81 - Encounter for therapeutic drug level monitoring Medications: New buprenorphine-naloxone 12-3 mg (Suboxone) 1 film buccal Q24H 30 ea 1RF 30 days Coding Level of Care Code Est Pt Level 3 (21879) Diagnoses Opioid use disorder, moderate, in early remission, dependence F11.21
[2025-01-03 11:44] VITALS: PULSE 90; O2SAT 97
--- OUTSIDE RECORDS SUMMARY | 2025-01-03 12:32 | XMS_ITS | Clinical Summary ---
Author Organization [facility] Address [address] [place] [address] Care Team Providers Care Ledger Clerk Name Role Phone Unavailable Primary Care Provider Unavailabl e Social History Tobacco Use Types Packs/Day Years Used Date Smoking Tobacco: Never Assessed Sex and Gender Information Value Date Recorded Sex Assigned at Not on file Gender Identity Not on file Sexual Orientation Not on file Plan of Treatment Not on file
--- OUTSIDE RECORDS SUMMARY | 2025-01-03 12:32 | XMS_ITS | Clinical Summary ---
Author Organization [facility] Address [address] [place] [address] Care Team Providers Care Magnetic Prospecting Supervisor Name Role Phone Jeni Marroquin DO Primary Care Provider [phone] Allergies Active Allergy Reactions Criticality Noted Date Comments Ibuprofen Swelling Medium 02/11/2018 Seafood Anaphylaxis High 02/12/2018 Medications DULoxetine (CYMBALTA) 20 MG capsule Take 20 mg by mouth daily. Active losartan (COZAAR) 25 MG tablet Take 25 mg by mouth daily. Active OMEprazole (PriLOSEC) 40 MG capsule Take 40 mg by mouth daily. Active oxyCODONE (ROXICODONE) 5 MG immediate release tabletIndications :Acute cholecystitis 1-2 tabs (5-10 mg) every 4-6 hours for postoperative pain 25 tablet 02/14/20 18 Active Active Problems Problem Noted Date Diagnosed Date Cholelithiasis and acute cholecystitis without o bstruction 02/11/2018 Anxiety 02/11/2018 Depression 02/11/2018 Diabetes 02/11/2018 Hypertension 02/11/2018 Acute cholecystitis 02/11/2018 Social History Tobacco Use Types Packs/Day Years Used Date Smoking Tobacco: Never Assessed Comments No Sex and Gender Information Value Date Recorded Sex Assigned at Not on file Legal Sex Female 8:11 PM EDT Gender Identity Not on file Sexual Orientation [...] Mammogram 2022 Influenza Vaccine 04/04/2024 COVID-19 Vaccine (1 - 2023-2 5 season) 2024 HPV Vaccines [...] 5:51 AM EDT 02/13/2018 6:07 AM EDT us Niko Love MD LAB BLOOD ORDERABLES Final Re sult HOSPITAL LAB * (ABNORMAL) Hemoglobin A1c with Estimated Average Glucose (02/12/2018 5:23 AM EDT) Hemoglobin A1C 6.7(H) <5.7 % HOSPITAL LAB Comment: A1c% ? Interpretation 5.7 - 6.0 ?Increase risk of diabetes 6.1 - 6.4 ?Higher risk of diabetes > or = 6.5 ?? Consistent with diabetes Diabetes Care, 33(Supp 1):S1-S61, 2010 Estimated Average Glucose 146 mg/dL HOSPITAL LAB Comment:Performed at [facility], [facility], [place] license No. [id number] CLIA No. [id number] Blood specimen (specimen) Blood specimen / Unknown 02/12/2018 5:23 AM EDT 02/12/2018 5:58 AM EDT us Hank ALEMAN LAB BLOOD ORDERABLES Final Resul t HOSPITAL LAB from Last 3 Months or Most Recently Relevant to Health Maintenance Insurance MEDICAID OUT OF STATE [facility] Advance Directives * Full Code (Latest Code Status on File) Date Activated Date Inactivated Comments 02/12/2018 5:27 PM * Full Code Date Activated Date Inactivated Comments 02/11/2018 11:11 PM 02/12/2018 5:27 PM Care Teams Magnetic Prospecting Supervisor Relationship Specialty Start Date End Date Jeni Marroquin DO [address] [address] PCP - General 02/11/18
== END 2025-01-03 11:41 ==
LOC: HO.HCC 11:35
PROVIDERS: PCP Physician Assistant; Visit Provider Internal Medicine
DX: Z51.81 Encounter for therapeutic drug level monitoring (principal); F11.21 Opioid dependence, in remission
CPT/HCPCS: 99213

== ENCOUNTER → 2025-01-03 11:34 | Outpatient (BNVA) | payer OTHER, SELFPAY | PROVIDERS: PCP Physician Assistant; Visit Provider Internal Medicine | DX: F11.21 Opioid dependence, in remission (principal) | CPT/HCPCS: 80307; 99212 ==

== ENCOUNTER 2025-01-24 09:41 | Outpatient (REF) | payer OTHER, SELFPAY ==
--- OUTSIDE RECORDS SUMMARY | 2025-01-24 09:56 | XMS_ITS | Clinical Summary ---
Author Organization [facility] Address [address] [place] [address] Care Team Providers Care Writing Center Director Name Role Phone Jeni Marroquin DO Primary Care Provider [phone] Allergies Active Allergy Reactions Criticality Noted Date [...] GFR 02/13/2019 02/13/2018, 02/12/2018, 02/11/2018 Mammogram 2022 COVID-19 Vaccine (1 - 2023-2 5 season) 2024 Influenza Vaccine 04/04/2025 HPV Vaccines Aged Out No longer eligi [...] Glucose 146 mg/dL HOSPITAL LAB Comment:Performed at [facility], [facility], [place] license No. [id number] CLIA No. [id number] Blood specimen (specimen) Blood specimen / Unknown 02/12/2018 5:23 AM EDT 02/12/2018 5:58 AM EDT us Hank ALEMAN LAB BLOOD ORDERABLES Final Resul t HOSPITAL LAB from Last 3 Months or Most Recently Relevant to Health Maintenance Insurance MEDICAID OUT OF STATE [facility] Advance Directives * Full Code (Latest Code Status on File) Date Activated Date Inactivated Comments 02/12/2018 5:27 PM * Full Code Date Activated Date Inactivated Comments 02/11/2018 11:11 PM 02/12/2018 5:27 PM Care Teams Writing Center Director Relationship Specialty Start Date End Date Jeni Marroquin DO [address] [address] PCP - General 02/11/18
[2025-01-24 10:09] LABS: MANUAL DIFF FLAG NO
[2025-01-24 11:12] LABS: Basophils Absolute Auto 0.1 X10*3/uL (0.0-0.2); Basophils Percent Auto 0.9 % (0-2); Eosinophils Absolute Auto 0.2 X10*3/uL (0.0-0.4); Eosinophils Percent Auto 2.5 % (0-4); Hematocrit 39.6 % (37.0-47.0); Hemoglobin 12.7 g/dl (12.0-16.0); Imm Gran Abs Auto 0.03 X10*3/uL (0.00-0.03); Imm Gran Pct Auto 0.3 % (0.0-0.4); Lymphocytes Absolute Auto 2.4 X10*3/uL (1.2-4.9); Lymphocytes Percent Auto 26.6 % (20-40); Mean Corpuscular HGB Conc 32.1 g/dl (31.0-35.0); Mean Corpuscular Hemoglobin 25.6 pg (27.0-33.0); Mean Corpuscular Volume 79.7 fL (80.0-98.0); Mean Platelet Volume 10.9 fL (9.4-12.3); Monocytes Absolute Auto 0.5 X10*3/uL (0.1-1.2); Monocytes Percent Auto 5.2 % (2-11); Neutrophils Absolute Auto 5.9 x10*3/uL (2.0-8.3); Neutrophils Percent Auto 64.5 % (45-73); Platelet Count 277 X10*3/uL (160-400); Red Blood Count 4.97 X10*6/uL (4.20-5.50); Red Cell Distribution Width 15.6 % (11.0-16.0); White Blood Count 9.1 X10*3/uL (4.8-10.8)
[2025-01-24 11:13] LABS: Hematocrit 39.6 % (37.0-47.0); Hemoglobin 12.8 g/dl (12.0-16.0); Mean Corpuscular HGB Conc 32.3 g/dl (31.0-35.0); Mean Corpuscular Hemoglobin 25.8 pg (27.0-33.0); Mean Corpuscular Volume 79.7 fL (80.0-98.0); Platelet Count 292 X10*3/uL (160-400); Red Blood Count 4.97 X10*6/uL (4.20-5.50); Red Cell Distribution Width 15.7 % (11.0-16.0); White Blood Count 8.8 X10*3/uL (4.8-10.8)
[2025-01-24 12:30] LABS: Creatinine Urine 85.86 mg/dL; Microalbum/Creatinine Ratio Ur 65.2 ug/mg cr (<30)
[2025-01-24 12:38] LABS: Alanine Aminotransferase 34 U/L (0-31); Albumin Level 4.3 g/dL (3.5-5.0); Alkaline Phosphatase 86 U/L (39-117); Anion Gap 12 (12-20); Aspartate Amino Transferase 23 U/L (5-31); Bilirubin Direct 0.2 mg/dL (0.0-0.5); Bilirubin Total 0.3 mg/dL (0.0-1.0); Blood Urea Nitrogen 10 mg/dL (9-16); Calcium 9.4 mg/dL (8.4-10.2); Carbon Dioxide 25 mmol/L (22-29); Chloride 106 mmol/L (96-108); Cholesterol 175 mg/dL (<200); Estimated Glomerular Filt Rate > 60; Glucose Fasting 206 mg/dL (60-99); Glucose Random 205 mg/dL (60-115); HDL Cholesterol 32 mg/dL (>40); Iron 31 mcg/dL (30-160); LDL Cholesterol Calculated 115 mg/dL (<100); Percent Iron Saturation 9 % (15-50); Sodium 139 mmol/L (135-145); Total Iron Binding Capacity 331 mcg/dL (228-428); Total Protein 7.4 g/dL (6.5-8.0); Triglycerides 141 mg/dL (<150); Unsaturated Iron Binding 300 ug/dL
[2025-01-24 12:43] LABS: Hepatitis A Antibody IgG Nonreactive (Nonreactive); ~Hepatitis A Antibody IgG 0.38 S/CO (0.00-0.99)
[2025-01-24 12:48] LABS: HBc Num1 0.09 S/CO (0.00-0.79); HBsAGNum1 0.28 S/CO (0.00-0.99); HIV AB/AG Nonreactive (Nonreactive); HIV Num 1 0.08 S/CO (0.00-0.99); Hepatitis B Core Antibody Nonreactive (Nonreactive); ~HepC Num1 0.11 S/CO (0.00-0.79); ~Hepatitis C Antibody Nonreactive (Nonreactive)
[2025-01-24 12:49] LABS: Hepatitis B Surface Antigen Negative (Negative)
[2025-01-24 12:50] LABS: Syphilis Screen Nonreactive (Nonreactive)
[2025-01-25 09:48] LABS: Hepatitis B Surface Ab Qnt <5 mIU/mL (> OR = 10)
[2025-01-27 01:39] LABS: TS Negative Control Passed; TS Panel A 0; TS Panel B 0; TS Positive Control Passed; TSpotTB Negative (Negative)
== END 2025-01-24 09:42 | disposition home or self-care (01) ==
LOC: HO.LAB 09:41
PROVIDERS: Absent Provider Internal Medicine; PCP Physician Assistant; Visit Provider Physician Assistant
DX: F11.21 Opioid dependence, in remission (principal); E11.42 Type 2 diabetes mellitus with diabetic polyneuropathy; Z79.4 Long term (current) use of insulin; D50.9 Iron deficiency anemia, unspecified; N93.9 Abnormal uterine and vaginal bleeding, unspecified; E78.2 Mixed hyperlipidemia; I10 Essential (primary) hypertension
CPT/HCPCS: 36415; 80048; 80053; 80061; 80076; 82043; 82248; 82570; 83540; 85025; 85027; 86317; 86481; 86704; 86708; 86780; 86803; 87340; 87389

== ENCOUNTER 2025-03-03 12:56 | Outpatient (AMB) | payer OTHER, SELFPAY ==
--- OUTSIDE RECORDS SUMMARY | 2025-03-03 13:19 | XMS_ITS | Clinical Summary ---
Author Organization [facility] Address [address] [place] [address] Care Team Providers Care Soa Engineer Name Role Phone Unavailable Primary Care Provider Unavailabl e Social History Tobacco Use Types Packs/Day Years Used Date Smoking Tobacco: Never Assessed Sex and Gender Information Value Date Recorded Sex Assigned at Not on file Gender Identity Not on file Sexual Orientation Not on file Plan of Treatment Not on file
--- OUTSIDE RECORDS SUMMARY | 2025-03-03 13:19 | XMS_ITS | Clinical Summary ---
Author Organization [facility] Address [address] [place] [address] Care Team Providers Care Building Performance Consultant Name Role Phone Jeni Marroquin DO Primary Care Provider [phone] Allergies Active Allergy Reactions Criticality Noted Date [...] 102 02/13/2018 4:17 PM EDT Temperature 37.4 C (99.4 F) 02/13/2018 4:17 PM EDT Respiratory Rate 18 02/13/2018 4:17 PM EDT [...] 02/13/2018, 02/12/2018, 02/11/2018 Mammogram 2022 COVID-19 Vaccine ( - 2023-2 5 season) 2024 Influenza Vaccine [...] 6.7(H) <5.7 % HOSPITAL LAB Comment: A1c% Interpretation 5.7 - 6.0 Increase risk of diabetes 6.1 - 6.4 Higher risk of diabetes > or = 6.5 Consistent with diabetes Diabetes Care, 33(Supp 1):S1-S61, 2009 Estimated Average Glucose 146 mg/dL HOSPITAL LAB Comment:Performed at [facility], [place] license No. [id number] CLIA No. [id number] Blood specimen (specimen) Blood specimen / Unknown 02/12/2018 5:23 AM EDT 02/12/2018 5:58 AM EDT us Hank ALEMAN LAB BLOOD ORDERABLES Final Resul t HOSPITAL LAB from Last 3 Months or Most Recently Relevant to Health Maintenance Insurance MEDICAID OUT OF STATE [facility] Advance Directives * Full Code (Latest Code Status on File) Date Activated Date Inactivated Comments 02/12/2018 5:27 PM * Full Code Date Activated Date Inactivated Comments 02/11/2018 11:11 PM 02/12/2018 5:27 PM Care Teams Building Performance Consultant Relationship Specialty Start Date End Date Jeni Marroquin DO [address] [address] PCP - General 02/11/18
--- NOTE | 2025-03-03 13:47 | AM.OFFVISNUR ---
Vital Signs 03/03/25 13:48 Pulse 89 Pulse Source Pulse Oximeter Pulse Oximetry (%) 97 Oxygen Delivery Method Room Air Intake Visit Reasons: MAT Allergies ibuprofen (IBUPROFEN) Allergy (Unknown, Verified 01/03/25 11:44) SWELLING, face swelling seafood Allergy (Unknown, Verified 01/03/25 11:44) Anaphylaxis dulaglutide (From [facility]) Adverse Reaction (Intermediate, Verified 01/03/25 11:44) GI upset Assessment & Plan Assessment & Plan Medications: New buprenorphine-naloxone 12-3 mg (Suboxone) 1 film buccal Q24H 30 ea 1RF 30 days Coding
[2025-03-03 13:48] VITALS: PULSE 89; O2SAT 97
--- NOTE | 2025-03-03 15:41 | A.OFFVIS_ITS ---
Vital Signs 03/03/25 13:48 Pulse 89 Pulse Source Pulse Oximeter Pulse Oximetry (%) 97 Oxygen Delivery Method Room Air Intake Visit Reasons: MAT Allergies ibuprofen (IBUPROFEN) Allergy (Unknown, Verified 01/03/25 11:44) SWELLING, face swelling seafood Allergy (Unknown, Verified 01/03/25 11:44) [facility] Adverse Reaction (Intermediate, Verified 01/03/25 11:44) GI upset HPI HPI MAT: Details: She is doing well. She has no complaints She feels Suboxone is working well for her. [facility] Medical History Marijuana dependence Hypertension Hyperlipidemia Diabetes mellitus Morbid obesity Breast calcification, left GERD (gastroesophageal reflux disease) Surgical History Hx of dilation and curettage History of esophagogastroduodenoscopy (EGD) Hx of colonoscopy History of cholecystectomy Family History Father Mental health disorder Mother Drug abuse Emphysema lung COPD (chronic obstructive pulmonary disease) Heart disease Mental health disorder Substance use disorder Sister Thyroid cancer Maternal Grandfather Colon cancer Maternal Grandmother Colon cancer Social History Housing: Apartment Alcohol intake: never Patient Tobacco Use Status: Former Tobacco user Tobacco use type: Cigarette Cigarette Packs Per Day: 0.25 Cigarettes Per Day: 3 e-Cigarette/Vaping Use: Never Used Second Hand Smoke Exposure: Yes Substance Use Type: Marijuana service: No Current occupational status: employed 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, 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 Female Reproductive History Menstrual Age of Menarche: 13 Review of Systems Const All systems reviewed & are unremarkable except as noted in HPI and below Physical Exam Vital Signs: Last Vital Signs Pulse 89 03/03/25 13:48 Pulse Ox 97 03/03/25 13:48 Oxygen Delivery Method Room Air 03/03/25 13:48 Const General: cooperative Assessment & Plan Assessment & Plan (1) MDD (major depressive disorder), recurrent episode, moderate: Comment: She is doing well Code(s): F33.1 - Major depressive disorder, recurrent, moderate Category: Medical Plan: Continue current Suboxone. See as scheduled. (2) Opiate dependence: Code(s): F11.20 - Opioid dependence, uncomplicated Category: Medical Qualifiers: Substance use status: in remission Qualified Code(s): F11.21 - Opioid dependence, in remission Plan: na Medications: New buprenorphine-naloxone 12-3 mg (Suboxone) 1 film buccal Q24H 30 ea 1RF 30 days Coding Level of Care Code Est Pt Level 3 (41907) Diagnoses MDD (major depressive disorder), recurrent episode, moderate F33.1 Opioid dependence in remission F11.21 Substance use status: in remission
== END 2025-03-03 13:50 | disposition home or self-care (01) ==
LOC: HO.HCC 12:56
PROVIDERS: PCP Physician Assistant; Visit Provider Internal Medicine
DX: F33.1 Major depressive disorder, recurrent, moderate (principal); F11.21 Opioid dependence, in remission
CPT/HCPCS: 99213

== ENCOUNTER → 2025-03-03 12:56 | Outpatient (BNVA) | payer OTHER, SELFPAY | PROVIDERS: PCP Physician Assistant; Visit Provider Internal Medicine | DX: F33.1 Major depressive disorder, recurrent, moderate (principal); F11.21 Opioid dependence, in remission | CPT/HCPCS: 99212 ==

== ENCOUNTER 2025-03-05 09:18 | Outpatient (AMB) | payer OTHER, SELFPAY ==
--- OUTSIDE RECORDS SUMMARY | 2025-03-05 09:27 | XMS_ITS | Clinical Summary ---
Author Organization [facility] Address [address] [place] [address] Care Team Providers Care Video Network Engineer Name Role Phone Jeni Marroquin DO Primary Care Provider [phone] Allergies Active Allergy Reactions Criticality Noted Date [...] Glucose 146 mg/dL HOSPITAL LAB Comment:Performed at [facility], [place] license No. [id number] CLIA No. [id number] Blood specimen (specimen) Blood specimen / Unknown 02/12/2018 5:23 AM EDT 02/12/2018 5:58 AM EDT us Hank ALEMAN LAB BLOOD ORDERABLES Final Resul t HOSPITAL LAB from Last 3 Months or Most Recently Relevant to Health Maintenance Insurance MEDICAID OUT OF STATE [facility] Advance Directives * Full Code (Latest Code Status on File) Date Activated Date Inactivated Comments 02/12/2018 5:27 PM * Full Code Date Activated Date Inactivated Comments 02/11/2018 11:11 PM 02/12/2018 5:27 PM Care Teams Video Network Engineer Relationship Specialty Start Date End Date Jeni Marroquin DO [address] [address] PCP - General 02/11/18
--- OUTSIDE RECORDS SUMMARY | 2025-03-05 09:27 | XMS_ITS | Clinical Summary ---
Author Organization [facility] Address [address] [place] [address] Care Team Providers Care Cloud Systems Architect Name Role Phone Unavailable Primary Care Provider Unavailabl e Social History Tobacco Use Types Packs/Day Years Used Date Smoking Tobacco: Never Assessed Sex and Gender Information Value Date Recorded Sex Assigned at Not on file Gender Identity Not on file Sexual Orientation Not on file Plan of Treatment Not on file
--- NOTE | 2025-03-05 09:28 | MHC.PC.OV ---
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 Required: No Accompanied by: Self / Same As Patient Allergies ibuprofen (IBUPROFEN) Allergy (Unknown, Verified 03/05/25 09:43) SWELLING, face swelling seafood Allergy (Unknown, Verified 03/05/25 09:43) Anaphylaxis dulaglutide (From [facility]) Adverse Reaction (Intermediate, Verified 03/05/25 09:43) GI upset Medication List - Last Reconciled 03/05/25 by Alden Flores PA-C alcohol swabs (Alcohol Prep Pads) 1 pad topical TID 90 days atorvastatin 40 mg PO DAILY 90 days blood sugar diagnostic (FreeStyle Lite Strips) USE 1 STRIP DIRECTED 3 TIMES A DAY FOR 30 DAYS TESTING TWICE PER DAY blood-glucose sensor (flaveitStyle Js 3 Sensor device) As directed blood-glucose,benefits consultant,cont (FreeStyle Js 3 Aline) As directed buprenorphine-naloxone 12-3 mg (Suboxone) 1 film buccal Q24H buprenorphine-naloxone 12-3 mg (Suboxone) 1 film buccal Q24H 30 days buprenorphine-naloxone 12-3 mg (Suboxone) 1 film buccal Q24H 30 days buprenorphine-naloxone 12-3 mg (Suboxone) 1 film buccal Q24H 30 days cholecalciferol (vitamin D3) 1,250 mcg PO QWEEK 8 weeks clotrimazole 1% 1 appl topical BID 30 days CPAP (CPAP Machine/Device) As directed ferrous sulfate 325 mg PO DAILY 90 days gabapentin 600 mg PO BID 30 days insulin glargine (Lantus Solostar U-100 Insulin) 65 units (0.65 mL) subcut QAM 30 days lancets (FreeStyle Lancets) As directed losartan 50 mg PO DAILY 90 days Novolog FlexPen U-100 Insulin (insulin aspart U-100) 30 units (0.3 mL) subcut TID 30 days NS omeprazole 40 mg PO DAILY 90 days pen needle, diabetic (BD Lis 2nd Gen Pen Needle) As directed safety needles (BD Eclipse) As directed semaglutide (Ozempic) 1 mg subcut QWEEK Tobacco use date assessed: 10/30/24 Dental Screening Dental Screen Date: 10/30/24 HPI Follow up/DMII HPI Details Patient is a 45 year-old female here today for f/u visit. ? Patient has a past medical history significant for morbid obesity, type 2 diabetes, ANTONIO, hyperlipidemia, opiate dependency, hypertension. Obstructive sleep apnea: Patient continues with CPAP machine on a nightly basis with good effect on her sleep ? .. Type 2 diabetes:? Type 2 diabetes has been uncontrolled, patient has establish care with a new reference and instruction librarian in [facility]. She continues with both long-acting and preprandial insulin and now on Ozempic 1 mg weekly. Her A1c is much improved from 13-9.1. She has been a lot more physically active and has lost weight since last office visit. .. Opiate dependency: Continues to follow the [facility] and continues on Suboxone which seems to be working well for her. ?. .. Hyperlipidemia: Most recent lipid panel showing slightly elevated LDL at 115. She continues on atorvastatin 40 mg and would like to continue working on lifestyle and dietary modifications before increasing potency of statin. . Goal LDL to be below 100 .. CLass 3 Obesity:? Has been able to lose weight since last office visit, now on Ozempic 1 mg weekly.. Has been able to reduce her weight with dietary modifications.? She still understands her BMI is well over 30 will work on being more physically active and continue dietary modifications to help lose weight. . Hypertension:? Blood pressure slightly elevated today in office..? Patient denies any chest discomfort, headaches, dizziness or shortness of breath on exertion Laboratory Tests 05/23/24 10/30/24 01/24/25 11:26 14:07 10:01 Hgb Fasting Glucose Hgb A1c (Clinic) 10.1 H 13.6 H Cholesterol LDL Cholesterol, C alc Urine Microalbumin 56.0 01/24/25 10:06 Hgb 12.8 Fasting Glucose 206 H Hgb A1c (Clinic) Cholesterol 175 LDL Cholesterol, C alc 115 H Urine Microalbumin [facility] Medical History (Updated 03/05/25 @ 09:37 by Alden Flores PA-C) Marijuana dependence Hypertension Hyperlipidemia Diabetes mellitus Breast calcification, left GERD (gastroesophageal reflux disease) Surgical History Hx of dilation and curettage History of esophagogastroduodenoscopy (EGD) Hx of colonoscopy History of cholecystectomy Family History Father Mental health disorder Mother Drug abuse Emphysema lung COPD (chronic obstructive pulmonary disease) Heart disease Mental health disorder Substance use disorder Sister Thyroid cancer Maternal Grandfather Colon cancer Maternal Grandmother Colon cancer Social History Housing: Apartment Alcohol intake: never Patient Tobacco Use Status: Former Tobacco user Tobacco use type: Cigarette Cigarette Packs Per Day: 0.25 Cigarettes Per Day: 3 e-Cigarette/Vaping Use: Never Used Second Hand Smoke Exposure: Yes Substance Use Type: Marijuana service: No Current occupational status: employed 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 1. Little interest or pleasure in doing things: not at all 2. Feeling down, depressed, or hopeless: not at all 3. Trouble falling or staying asleep, or sleeping too much: not at all 4. Feeling tired or having little energy: several days 5. Poor appetite or overeating: not at all 6. Feeling bad about yourself - or that you are a failure or have let yourself or your family down: not at all 7. Trouble concentrating on things, such as reading the newspaper or watching television: not at all 8. Moving or speaking so slowly that other people could have noticed. Or the opposite - being so fidgety or restless that you have been moving around a lot more than usual: not at all 9. Thoughts that you would be better off or of hurting yourself in some way: not at all Total score: 1 Depression Screening Interpretation: Negative Depression Screening Done: Yes 57494 - PHQ-9 Billing: Yes Source: Developed by Drs. Nate Vences, Rosa Velez, Buddy Jensen and colleagues, with an educational ale from [employer]. Thrive Questionnaire Date Thrive assessed: 03/05/25 I am a: Patient What is your living situation today?: I have a steady place to live Within the past 12 months, did the food you bought not last and you didn't have the money to get more?: Never true Within the past 12 months, did you worry whether your food would run out before you got money to buy more?: Never true Do you have trouble paying for medicines?: No Do you have trouble getting transportation to medical appointments?: No Do you have trouble paying your heating and electricity bill?: No Do you have trouble taking care of your child, family member or friend?: No Do you have trouble with day-to-day activities such as bathing, preparing meals, shopping, managing finances, etc.?: No Are you currently unemployed and looking for a job?: No Are you interested in more education?: No Please select the resources that you would like help with: None Currently or been in a relationship where the following occur: No concerns reported THRIVE Score: 0 AUDIT C Alcohol Use Questionnaire (AUDIT-C) 1. How often do you have a drink containing alcohol?: Monthly or less 2. How many drinks containing alcohol do you have on a typical day when you are drinking?: 1 or 2 3. How often do you have six or more drinks on one occasion?: Never Total Score: 1 LUIS-7 AMB Questionnaire LUIS-7 Date LUIS - 7 assessed: 03/05/25 Feeling nervous, anxious, or on edge: 1 = Several days Not being able to stop or control worryin = Several days Worrying too much about different things: 0 = Not at all Trouble relaxin = Not at all Being so restless that it is hard to sit still: 0 = Not at all Becoming easily annoyed or irritable: 0 = Not at all Feeling afraid as if something awful might happen: 0 = Not at all Total LUIS-7 score (0-4 normal; 5-9 mild; 10-14 moderate; 15-21 severe): 2 Source: Developed by Drs. Nate Vences, Rosa Velez, Buddy Jensen and colleagues, with an educational ale from [employer] LUIS-7 Assessment Billing LUIS-7 Assessment Tool: LUIS-7 Assessment 31035 Review of Systems Const Denies headache(s) Eyes Denies loss of vision ENT Denies vertigo, Denies dizziness, Denies headache(s) and Denies sore throat Card Denies chest pain, Denies leg edema and Denies lightheadedness Resp Denies cough, Denies hemoptysis and Denies wheezing GI Denies abdominal pain, Denies melena, Denies constipation, Denies diarrhea and Denies vomiting Denies urinary frequency, Denies dysuria and Denies urinary urgency Musc Denies arthralgias, Denies joint swelling, Denies numbness and Denies tingling Neuro Denies Abnormal speech present, Denies behavioral changes, Denies vertigo, Denies dizziness, Denies headache(s), Denies loss of vision, Denies memory loss, Denies numbness and Denies tingling Psych Denies anxiety, Denies behavioral changes, Denies depression, Denies memory loss and Denies panic attacks Gen/Lymph Denies easy bleeding and Denies easy bruising Aller/Immun Denies wheezing Physical exam (Primary Care) Vital Signs: Last Vital Signs Pulse 86 03/05/25 09:29 BP 144/98 H 03/05/25 09:29 Pulse Ox 95 03/05/25 09:29 Oxygen Delivery Method Room Air 03/05/25 09:29 BMI result Body Mass Index 53.7 BMI Assessment/Plan discussion: High BMI High, discussed plan: lifestyle, weight reduction, dietary and physical activity Tobacco/Smoking Status: Tobacco use Status Tobacco use date assessed 10/30/24 03/05/25 09:33 Patient Tobacco Use Status Former Tobacco user 03/05/25 09:33 Tobacco use type Cigarette 03/05/25 09:33 e-Cigarette/Vaping Use Never Used 03/05/25 09:33 PHQ-9: PHQ-9 Score PHQ-9: Total score 1 03/05/25 11:16 Depression Screening Interpretation: Negative Thrive Assessment: Date of Thrive Assessment Date Thrive assessed 03/05/25 03/05/25 09:33 Currently or been in a relationship where the following occur: No concerns reported Const Other: Morbidly obese General: no acute distress, alert and awake Nutritional Appearance: well nourished Orientation/consciousness: oriented to person, oriented to place and oriented to time HENMT Ears: TM's normal bilaterally General nose exam: Normal nasal mucous membranes and turbinates present Eyes Conjunctivae: conjunctivae normal Sclerae: sclerae normal Pupils: Equal, round and reactive pupils present Neck Neck: Yes no lymphadenopathy and Yes no JVD Thyroid: Thyroid normal Carotids: no bruits Resp Effort & Inspection: normal respiratory effort and not tachypneic Auscultation: no crackles, no rales, no rhonchi and no wheezes Cardio Rate: regular rate Rhythm: regular rhythm Heart sounds: no murmurs and normal S1 and S2 GI Palpation (GI): Soft to palpation, nontender, no hepatomegaly and no splenomegaly Auscultation: normal bowel sounds Skin General skin exam: no rashes or lesions noted and dry skin Neuro General: oriented to person, oriented to place and oriented to time Cranial nerves: Yes Equal, round and reactive pupils present Speech: No Abnormal speech present Gait exam (Neuro): Normal gait present Motor exam (neuro): no tremor noted Extrem Right upper extremity: full ROM Left upper extremity: full ROM Right lower extremity: full ROM; no edema Left lower extremity: full ROM; no edema Psych Mental Status: mental status grossly normal Speech and movement: Normal speech and movement present Affect: normal affect Attitude: cooperative Thought process: Normal thought process present Results AMB Hemoglobin A1c AMB Hemoglobin A1c 9.1 % Last Edit by Eva De Leon MA on 03/05/25 11:16 Results Reviewed Results Reviewed: Laboratory Last Values Hgb A1c (Clinic) 9.1 % (4.0-6.0) H 03/05/25 09:28 Coding Level of Care Code Est Pt Level 4 (65562) Diagnoses Type 2 diabetes mellitus with diabetic polyneuropathy, with long-term current use of insulin E11.42; Z79.4 Diabetes mellitus complication detail: with polyneuropathy Diabetes mellitus complication status: with neurologic complications Diabetes mellitus intermediate accountant insulin use: with alf use Diabetes mellitus type: type 2 MDD (major depressive disorder), recurrent episode, moderate F33.1 Opioid dependence in remission F11.21 Substance use status: in remission Primary hypertension I10 Hypertension type: primary hypertension Mixed hyperlipidemia E78.2 Hyperlipidemia type: mixed hyperlipidemia Class 3 obesity E66.813 Additional Codes LUIS-7 Assessment Billing - LUIS-7 Assessment Tool: LUIS-7 Assessment 05050 ([id number]) PHQ-9 - 47923 - PHQ-9 Billing: Yes ([id number]) Assessment & Plan Assessment & Plan (1) Diabetes mellitus: Code(s): E11.9 - Type 2 diabetes mellitus without complications Category: Medical Qualifiers: Diabetes mellitus complication detail: with polyneuropathy Diabetes mellitus complication status: with neurologic complications Diabetes mellitus intermediate accountant insulin use: with intermediate accountant use Diabetes mellitus type: type 2 Qualified Code(s): E11.42 - Type 2 diabetes mellitus with diabetic polyneuropathy; 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 Today's A1c at 9.1 from 13. She now is seeing a new reference and instruction librarian in [place]. . Continues on both long-acting and short-acting insulin, she plans on reducing her insulin doses as she works on lifestyle and dietary modifications. She continues on Ozempic 1 mg weekly which has offered her glycemic control weight loss. Goal A1c is to be below 7.0 (2) MDD (major depressive disorder), recurrent episode, moderate: Comment: She is doing well Code(s): F33.1 - Major depressive disorder, recurrent, moderate Category: Medical Plan: Patient's PHQ-9 score 0, has a history of depression though seems to be fairly stable. 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 (4) Hypertension: Code(s): I10 - Essential (primary) hypertension Category: Medical Qualifiers: Hypertension type: primary hypertension Qualified Code(s): I10 - Essential (primary) hypertension Plan: Patient's blood pressure slightly elevated today in office. She does monitor blood pressure at home does report better readings 120-130 systolic. Will continue her current dose of losartan with goal blood pressure to remain below 140/90. Will consider increasing losartan if blood pressures remain above 140 systolic (5) HLD (hyperlipidemia): Code(s): E78.5 - Hyperlipidemia, unspecified Category: Medical Qualifiers: Hyperlipidemia type: mixed hyperlipidemia Qualified Code(s): E78.2 - Mixed hyperlipidemia Plan: Patient continues on atorvastatin 40 mg. Most recent lipid panel showing good control over total cholesterol and LDL. Goal LDL is to be below 100 (6) Class 3 obesity: Code(s): E66.813 - Obesity, class 3 Category: Medical Plan: Patient does understand her BMI is over 50 and will continue working on being more physically active and adapting to better eating habits to reduce her weight. 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 Panel Fast Today I10 - Essential (primary) hypertension Lipid Panel Today E78.2 - Mixed hyperlipidemia Complete Blood Count no Diff Today I10 - Essential (primary) hypertension Medications: Refilled alcohol swabs (Alcohol Prep Pads) 1 pad topical TID 200 ea 5RF 90 days E11.65 - Type 2 diabetes mellitus with hyperglycemia atorvastatin 40 mg PO DAILY 90 tabs 1RF 90 days E78.2 - Mixed hyperlipidemia Patient Instructions: :Goal: A1c to be below 7.0, LDL to be below 100. Blood pressure to be below 140/90 Barriers: Adherence to physical activity and healthy eating habits
[2025-03-05 09:29] VITALS: BP 144/98; PULSE 86; O2SAT 95; BMI 53.7
== END 2025-03-05 09:56 | disposition home or self-care (01) ==
LOC: HO.HMCH 09:18
PROVIDERS: PCP Physician Assistant; Visit Provider Physician Assistant
DX: E11.42 Type 2 diabetes mellitus with diabetic polyneuropathy (principal); Z79.4 Long term (current) use of insulin; F33.1 Major depressive disorder, recurrent, moderate; F11.21 Opioid dependence, in remission; Z68.43 Body mass index [BMI] 50.0-59.9, adult; I10 Essential (primary) hypertension; E78.2 Mixed hyperlipidemia; E66.813 Obesity, class 3

== ENCOUNTER → 2025-03-05 09:18 | Outpatient (BNVA) | payer OTHER, SELFPAY | PROVIDERS: PCP Physician Assistant; Visit Provider Physician Assistant | DX: E11.42 Type 2 diabetes mellitus with diabetic polyneuropathy (principal); E11.65 Type 2 diabetes mellitus with hyperglycemia; E66.01 Morbid (severe) obesity due to excess calories; G47.33 Obstructive sleep apnea (adult) (pediatric); F33.1 Major depressive disorder, recurrent, moderate; F11.21 Opioid dependence, in remission; I10 Essential (primary) hypertension; E66.813 Obesity, class 3; E78.2 Mixed hyperlipidemia; Z68.43 Body mass index [BMI] 50.0-59.9, adult | CPT/HCPCS: 83036; 96127; 99212 ==

== ENCOUNTER 2025-05-02 09:21 | Outpatient (AMB) | payer OTHER, SELFPAY ==
[2025-05-02 09:34] VITALS: PULSE 94; O2SAT 95; BMI 54.6
--- NOTE | 2025-05-02 09:34 | MHC.OFFVIS ---
Vital Signs 05/02/25 09:34 Height 5 ft 1 in Weight 289 lb BMI 54.6 Pulse 94 Pulse Source Pulse Oximeter Pulse Oximetry (%) 95 Oxygen Delivery Method Room Air Intake Visit Reasons: MAT Allergies ibuprofen (IBUPROFEN) Allergy (Unknown, Verified 05/02/25 09:35) SWELLING, face swelling seafood Allergy (Unknown, Verified 05/02/25 09:35) Anaphylaxis dulaglutide (From [facility]) Adverse Reaction (Intermediate, Verified 05/02/25 09:35) GI upset HPI HPI MAT: Details: She has no concerns at this time. [facility] Medical History Marijuana dependence Hypertension Hyperlipidemia Diabetes mellitus Breast calcification, left GERD (gastroesophageal reflux disease) Surgical History Hx of dilation and curettage History of esophagogastroduodenoscopy (EGD) Hx of colonoscopy History of cholecystectomy Family History Father Mental health disorder Mother Drug abuse Emphysema lung COPD (chronic obstructive pulmonary disease) Heart disease Mental health disorder Substance use disorder Sister Thyroid cancer Maternal Grandfather Colon cancer Maternal Grandmother Colon cancer Social History Housing: Apartment Alcohol intake: never Patient Tobacco Use Status: Former Tobacco user Tobacco use type: Cigarette Cigarette Packs Per Day: 0.25 Cigarettes Per Day: 3 e-Cigarette/Vaping Use: Never Used Second Hand Smoke Exposure: Yes Substance Use Type: Marijuana service: No Current occupational status: employed 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, 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 Female Reproductive History Menstrual Age of Menarche: 13 Review of Systems Const All systems reviewed & are unremarkable except as noted in HPI and below Physical Exam Vital Signs: Last Vital Signs Pulse 94 05/02/25 09:34 Pulse Ox 95 05/02/25 09:34 Oxygen Delivery Method Room Air 05/02/25 09:34 BMI result Body Mass Index 54.6 Const General: cooperative Assessment & Plan Assessment & Plan (1) Opioid use disorder, moderate, in early remission, dependence: Comment: She is doing well and has no concerns. Code(s): F11.21 - Opioid dependence, in remission Category: Medical Plan: Continue current medications See as scheduled. Orders: Referrals Counseling Referral F11.21 - Opioid dependence, in remission Medications: New buprenorphine-naloxone 12-3 mg (Suboxone) 1 film sublingual Q24H 30 ea 1RF 30 days Coding Level of Care Code Est Pt Level 3 (79693) Diagnoses Opioid use disorder, moderate, in early remission, dependence F11.21
--- OUTSIDE RECORDS SUMMARY | 2025-05-02 10:10 | XMS_ITS | Clinical Summary ---
Author Organization [facility] Address [address] [place] [address] Care Team Providers Care Sheet Sewer Name Role Phone Unavailable Primary Care Provider Unavailabl e Social History Tobacco Use Types Packs/Day Years Used Date Smoking Tobacco: Never Assessed Sex and Gender Information Value Date Recorded Sex Assigned at Not on file Gender Identity Not on file Sexual Orientation Not on file Plan of Treatment Not on file
--- OUTSIDE RECORDS SUMMARY | 2025-05-02 10:10 | XMS_ITS | Clinical Summary ---
Author Organization Formerly [facility] Address [address] [place] [address] Care Team Providers Care Manager Helpdesk Name Role Phone Jeni Marroquin DO Primary Care Provider [phone] Allergies Active Allergy Reactions Criticality Noted Date [...] Ophthalmology Exam 02/24/1992 HIV Screening 1995 Microalbumin/Creatinine Ratio Urine 02/24/2000 DTaP/Tdap/Td Vaccines (1 - Tdap) 2001 Hepatitis B Vaccines (1 of 3 - 19+ 3-dose series) 2001 Pneumococcal Vaccine: Pediat navi (0-5 Years) and At-Risk Patients (6 to 49 Years) (1 of 2 - PCV) 2001 Pap Smear (Ages 21-65) 2003 HPV Vaccines (1 - 3-dose SCDM series) 2009 Hemoglobin A1C 08/14/2018 02/12/2018 Creatinine with GFR 02/13/2019 02/13/2018, 02/12/2018, 02/11/2018 Mammogram 2022 COVID-19 Vaccine (2023- season) 2024 Influenza Vaccine 04/04/2025 Procedures Procedure Name Priority Date/Time Associated Diagnosis [...] mg/dL HOSPITAL LAB Comment:Performed at [facility], [place] license No. [id number] CLIA No. [id number] Blood specimen (specimen) Blood specimen / Unknown 02/12/2018 5:23 AM EDT 02/12/2018 5:58 AM EDT us Hank [facility] BLOOD ORDERABLES Final Resul t HOSPITAL LAB from Last 3 Months or Most Recently Relevant to Health Maintenance [place] [facility] [place] * Full Code (Latest Code Status on File) Date Activated Date Inactivated Comments 02/12/2018 5:27 PM * Full Code Date Activated Date Inactivated Comments 02/11/2018 11:11 PM 02/12/2018 5:27 PM Care Teams Manager Helpdesk Relationship Specialty Start Date End Date Jeni Marroquin DO [address] [id number] PCP - General 02/11/18
== END 2025-05-02 10:26 | disposition home or self-care (01) ==
PROVIDERS: PCP Physician Assistant; Visit Provider Internal Medicine
DX: F11.21 Opioid dependence, in remission (principal)
CPT/HCPCS: 99213

== ENCOUNTER → 2025-05-02 09:21 | Outpatient (BNVA) | payer OTHER, SELFPAY | PROVIDERS: PCP Physician Assistant; Visit Provider Internal Medicine | DX: F11.21 Opioid dependence, in remission (principal); F12.20 Cannabis dependence, uncomplicated; Z79.899 Other long term (current) drug therapy | CPT/HCPCS: 99212 ==

== ENCOUNTER 2025-06-30 09:21 | Outpatient (AMB) | payer OTHER, SELFPAY ==
--- NOTE | 2025-06-30 09:22 | MHC.OFFVIS ---
Vital Signs 06/30/25 09:30 Height 5 ft 1 in Weight 290 lb BMI 54.8 Pulse 94 Pulse Source Pulse Oximeter Pulse Oximetry (%) 96 Oxygen Delivery Method Room Air Intake Visit Reasons: MAT Allergies ibuprofen (IBUPROFEN) Allergy (Unknown, Verified 06/30/25 09:31) SWELLING, face swelling seafood Allergy (Unknown, Verified 06/30/25 09:31) Anaphylaxis dulaglutide (From Trulicity) Adverse Reaction (Intermediate, Verified 06/30/25 09:31) GI upset HPI Comments Details: History of Present Illness The patient is a 45-year-old female presenting with opioid use disorder. There are no current complaints or symptoms such as constipation or depression. The patient reports adherence to her prescribed medications, both for the opioid use disorder and her diabetes. Counseling sessions are part of her treatment plan. Monitoring of her status is ongoing, and her vital signs are reported as stable. Review of Systems - Psychiatric: Denies depression. - Gastrointestinal: Denies constipation. - General: Reports feeling well. Physical Exam - Vitals- Stable Results Plan Patient was informed and verbally consented to the use of an ambient scribe for clinic note documentation during this visit. 1. Opioid use, unspecified, uncomplicated F11.90 Continue current medication regimen, confirm compliance, and recommend ongoing counseling. Schedule routine follow-ups to monitor progress and treatment effectiveness. Discussion Notes During the visit, I discussed the importance of continuing her current medication regimen for opioid use disorder and the need for ongoing counseling as a supportive measure. Adherence to both her opioid treatment and diabetic medication was confirmed, which is crucial for her overall health management. Follow-up appointments were set to ensure continuous monitoring and intervention if necessary. Medical Decision Making The patient's opioid use disorder is currently stable, with no significant complaints or side effects noted. Given her compliance with treatment and the stability of her vital signs, I determined that continuation of her current regimen is appropriate. The inclusion of counseling sessions will provide additional support in her recovery journey. Monitoring her progress through regular follow-ups is essential to adjusting treatment as needed. Patient Instructions - Keep taking your prescribed medications regularly. - Attend your scheduled counseling sessions. - Follow up with your next appointment as planned. - If you notice any changes in your mood, energy, or general health, contact the office. [facility] Medical History Marijuana dependence Hypertension Hyperlipidemia Diabetes mellitus Breast calcification, left GERD (gastroesophageal reflux disease) Surgical History Hx of dilation and curettage History of esophagogastroduodenoscopy (EGD) Hx of colonoscopy History of cholecystectomy Family History Father Mental health disorder Mother Drug abuse Emphysema lung COPD (chronic obstructive pulmonary disease) Heart disease Mental health disorder Substance use disorder Sister Thyroid cancer Maternal Grandfather Colon cancer Maternal Grandmother Colon cancer Social History Housing: Apartment Alcohol intake: never Patient Tobacco Use Status: Former Tobacco user Tobacco use type: Cigarette Cigarette Packs Per Day: 0.25 Cigarettes Per Day: 3 e-Cigarette/Vaping Use: Never Used Second Hand Smoke Exposure: Yes Substance Use Type: Marijuana service: No Current occupational status: employed 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 Code(s): F11.21 - Opioid dependence, in remission Category: Medical Plan na Medications: New buprenorphine-naloxone 12-3 mg (Suboxone) 1 film sublingual Q24H 30 ea 1RF 30 days Coding Level of Care Code Est Pt Level 3 (98729) Diagnoses Opioid use disorder, moderate, in early remission, dependence F11.21
[2025-06-30 09:30] VITALS: PULSE 94; O2SAT 96; BMI 54.8
--- OUTSIDE RECORDS SUMMARY | 2025-06-30 10:21 | XMS_ITS | Clinical Summary ---
Author Organization [facility] Address [address] [place] [address] Care Team Providers Care Director Of Financial Reporting Name Role Phone Unavailable Primary Care Provider Unavailabl e Social History Tobacco Use Types Packs/Day Years Used Date Smoking Tobacco: Never Assessed Sex and Gender Information Value Date Recorded Sex Assigned at Not on file Gender Identity Not on file Sexual Orientation Not on file Plan of Treatment Not on file
--- OUTSIDE RECORDS SUMMARY | 2025-06-30 10:21 | XMS_ITS | Clinical Summary ---
Author Organization Formerly [facility] Address [address] [place] [address] Care Team Providers Care Yoke Setter Name Role Phone Jeni Marroquin DO Primary Care Provider [phone] Allergies Active Allergy Reactions Criticality Noted Date [...] 02/13/2018, 02/12/2018, 02/11/2018 Mammogram 2022 Influenza Vaccine 04/04/2025 COVID-19 Vaccine ( season) 2025 HPV Vaccines (No Doses Required) Completed Procedures Procedure Name Priority Date/Time Associated Diagnosis [...] 146 mg/dL HOSPITAL LAB Comment:Performed at [facility], [place] license No. [id number] CLIA No. [id number] Blood specimen (specimen) Blood specimen / Unknown 02/12/2018 5:23 AM EDT 02/12/2018 5:58 AM EDT [facility] BLOOD ORDERABLES Final Resul t HOSPITAL LAB from Last 3 Months or Most Recently Relevant to Health Maintenance [place] OF [place] [facility] [place] * Full Code (Latest Code Status on File) Date Activated Date Inactivated Comments 02/12/2018 5:27 PM * Full Code Date Activated Date Inactivated Comments 02/11/2018 11:11 PM 02/12/2018 5:27 PM Care Teams Yoke Setter Relationship Specialty Start Date End Date Jeni Marroquin DO [address] [address] PCP - General 02/11/18
== END 2025-06-30 09:48 | disposition home or self-care (01) ==
PROVIDERS: PCP Physician Assistant; Visit Provider Internal Medicine
DX: F11.21 Opioid dependence, in remission (principal)
CPT/HCPCS: 99213

== ENCOUNTER → 2025-06-30 09:21 | Outpatient (BNVA) | payer OTHER, SELFPAY | PROVIDERS: PCP Physician Assistant; Visit Provider Internal Medicine | DX: F11.21 Opioid dependence, in remission (principal) | CPT/HCPCS: 99212 ==

== ENCOUNTER 2025-08-25 09:51 | Outpatient (AMB) | payer OTHER, SELFPAY ==
--- NOTE | 2025-08-25 10:23 | MHC.AM.SUB ---
Vital Signs 08/25/25 10:30 Height 5 ft 1 in Weight 281 lb BMI 53.1 Pulse 79 Pulse Source Pulse Oximeter Pulse Oximetry (%) 98 Oxygen Delivery Method Room Air Intake Visit Reasons: MAT Allergies ibuprofen (IBUPROFEN) Allergy (Unknown, Verified 08/25/25 10:30) SWELLING, face swelling seafood Allergy (Unknown, Verified 08/25/25 10:30) Anaphylaxis [facility] Adverse Reaction (Intermediate, Verified 08/25/25 10:30) GI upset HPI HPI MAT: Details: She has no complaints and is doing well on Suboxone Review of Systems Const All systems reviewed & are unremarkable except as noted in HPI and below Physical Exam Vital Signs: Last Vital Signs Pulse 79 08/25/25 10:30 Pulse Ox 98 08/25/25 10:30 Oxygen Delivery Method Room Air 08/25/25 10:30 BMI result Body Mass Index 53.1 Results AMB 14 Panel Urine Drug Screen Urine Marijuana (THC) Positive Last Edit by Cricket Orta CMA on 08/25/25 10:46 Urine Cocaine Negative Last Edit by Cricket Orta CMA on 08/25/25 10:46 Urine Morphine Negative Last Edit by Cricket Orta CMA on 08/25/25 10:46 Urine Methamphetamine Negative Last Edit by Cricket Orta CMA on 08/25/25 10:46 Urine Amphetamine Negative Last Edit by Cricket Orta CMA on 08/25/25 10:46 Urine Benzodiazepine Negative Last Edit by Cricket Orta CMA on 08/25/25 10:46 Urine Barbiturates Negative Last Edit by Cricket Orta CMA on 08/25/25 10:46 Urine Methadone Negative Last Edit by Cricket Orta CMA on 08/25/25 10:46 Urine Buprenorphine Positive Last Edit by Cricket Orta CMA on 08/25/25 10:46 Urine Tricyclic Antidepressant Negative Last Edit by Cricket Orta CMA on 08/25/25 10:46 Urine MDMA Negative Last Edit by Cricket Orta CMA on 08/25/25 10:46 Urine Oxycodone Negative Last Edit by Cricket Orta CMA on 08/25/25 10:46 Urine Phencyclidine Negative Last Edit by Cricket Orta CMA on 08/25/25 10:46 Urine Propoxyphene Negative Last Edit by Cricket Orta CMA on 08/25/25 10:46 Results Reviewed Results Reviewed: Laboratory Last Values POC Urine Buprenorphine Positive 08/25/25 10:45 POC Urine Morphine Negative 08/25/25 10:45 POC Urine Oxycodone Negative 08/25/25 10:45 POC Urine Methadone Negative 08/25/25 10:45 POC Urine Propoxyphene Negative 08/25/25 10:45 POC Urine Barbiturates Negative 08/25/25 10:45 POC U Tricyclic Antidpr Negative 08/25/25 10:45 POC Urine PCP Negative 08/25/25 10:45 POC Ur Amphetamines Negative 08/25/25 10:45 POC Ur Methamphetamine Negative 08/25/25 10:45 POC Urine MDMA Negative 08/25/25 10:45 POC Ur Benzodiazepine Negative 08/25/25 10:45 POC Urine Cocaine Negative 08/25/25 10:45 POC Ur Marijuana (THC) Positive 08/25/25 10:45 PFSH Medical History Marijuana dependence Hypertension Hyperlipidemia Diabetes mellitus Breast calcification, left GERD (gastroesophageal reflux disease) Surgical History Hx of dilation and curettage History of esophagogastroduodenoscopy (EGD) Hx of colonoscopy History of cholecystectomy Family History Father Mental health disorder Mother Drug abuse Emphysema lung COPD (chronic obstructive pulmonary disease) Heart disease Mental health disorder Substance use disorder Sister Thyroid cancer Maternal Grandfather Colon cancer Maternal Grandmother Colon cancer Social History Housing: Apartment Alcohol intake: never Patient Tobacco Use Status: Former Tobacco user Tobacco use type: Cigarette Cigarette Packs Per Day: 0.25 Cigarettes Per Day: 3 e-Cigarette/Vaping Use: Never Used Second Hand Smoke Exposure: Yes Substance Use Type: Marijuana service: No Current occupational status: employed 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, 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
[2025-08-25 10:30] VITALS: PULSE 79; O2SAT 98; BMI 53.1
--- OUTSIDE RECORDS SUMMARY | 2025-08-25 11:35 | XMS_ITS | Clinical Summary ---
Author Organization [facility] Address [address] [place] [address] Care Team Providers Care Assisted Living Executive Director Name Role Phone Jeni Marroquin DO Primary Care Provider [phone] Allergies Active Allergy Reactions Criticality Noted Date [...] Glucose 146 mg/dL HOSPITAL LAB Comment:Performed at [facility], [place] license No. [id number] CLIA No. [id number] Blood specimen (specimen) Blood specimen / Unknown 02/12/2018 5:23 AM EDT 02/12/2018 5:58 AM EDT Hank [facility] BLOOD ORDERABLES Final Resul t HOSPITAL LAB from Last 3 Months or Most Recently Relevant to Health Maintenance Insurance MEDICAID OUT OF STATE [facility] [place] Advance Directives * Full Code (Latest Code Status on File) Date Activated Date Inactivated Comments 02/12/2018 5:27 PM * Full Code Date Activated Date Inactivated Comments 02/11/2018 11:11 PM 02/12/2018 5:27 PM Care Teams Assisted Living Executive Director Relationship Specialty Start Date End Date Jeni Marroquin DO [address] [address] PCP - General 02/11/18
--- OUTSIDE RECORDS SUMMARY | 2025-08-25 11:35 | XMS_ITS | Clinical Summary ---
Author Organization [facility] Prior to 02/01/25 Address [address] [place] [address] Care Team Providers Care Jockey Agent Name Role Phone Unavailable Primary Care Provider Unavailabl e Social History Tobacco Use Types Packs/Day Years Used Date Smoking Tobacco: Never Assessed Sex and Gender Information Value Date Recorded Sex Assigned at Not on file Gender Identity Not on file Sexual Orientation Not on file Plan of Treatment Not on file
== END 2025-08-25 10:56 | disposition home or self-care (01) ==
LOC: HO.HCC 09:51
PROVIDERS: PCP Physician Assistant; Visit Provider Internal Medicine
DX: Z51.81 Encounter for therapeutic drug level monitoring (principal)

== ENCOUNTER → 2025-08-25 09:51 | Outpatient (BNVA) | payer OTHER, SELFPAY | PROVIDERS: PCP Physician Assistant; Visit Provider Internal Medicine | DX: F11.21 Opioid dependence, in remission (principal); Z51.81 Encounter for therapeutic drug level monitoring; Z79.899 Other long term (current) drug therapy | CPT/HCPCS: 80307; 99212 ==